=== PATIENT | female | born 1950 ===

== ENCOUNTER 2021-12-04 22:38 | Inpatient (IN) | payer OTHER ==
--- OUTSIDE RECORDS SUMMARY | 2021-12-04 22:40 | XMS REPORT | Continuity of Care Document ---
:1950 Author Organization [facility] t Address Formerly [facility] Vaibhav Nunn [address] [place] [id number] Care Team Providers Name Role Phone SOLIPURAM Attending Clinician Unavailable Miller_S_AH Attending Clinician Unavailable Margaret-Mbayo_A_AH Attending Clinician Unavailable SOLIPURAM Admitting Clinician Unavailable Miller_S_AH Admitting Clinician Unavailable Margaret-Mbayo_A_AH Admitting Clinician Unavailable Payers Payer Name Policy Type Policy Number Effective Date Expiration Date [facility] [place] [id number] 2019 [facility] 00:00:00 (MEDICARE REPLACEMENT/ADVANT AGE - HMO) Problems This patient has no known problems. Allergies, Adverse Reactions, Alerts This patient has no known allergies or adverse reactions. Medications This patient has no known medications. Procedures This patient has no known procedures. Encounters Start End Encounter Admission Attending Care Care Encounter Source Date/Time Date/Time Type Type Clinicians Facility Department ID 2021-05-23 2021-05-24 Outpatient [facility] [id number] [place] 00:00:00 00:00:00 [facility] [id number] 2021-05-04 2021-05-04 Outpatient Miller_S_AH [facility] [id number] [facility] 06:00:00 06:00:00 [id number] Family Practic [facility] 2020-05-04 2020-05-04 Outpatient Margaret-Mbayo VFP VFP [id number] [facility] 03:15:00 03:15:00 _A_AH [id number] Family Practic e 2020-05-04 2020-05-04 Outpatient Margaret-Mbayo VFP VFP [id number] [facility] 03:15:00 03:15:00 _A_AH [id number] Family Practic e 2020-05-04 2020-05-04 Outpatient Margaret-Mbayo VFP VFP [id number] [facility] 03:15:00 03:15:00 _A_AH [id number] Family Practic e 2020-03-01 2020-03-01 Outpatient Margaret-Mbayo VFP VFP [id number] [facility] 05:14:00 05:14:00 _A_AH [id number] Family Practic e 2020-03-01 2020-03-01 Outpatient Margaret-Mbayo VFP VFP [id number] [facility] 05:14:00 05:14:00 _A_AH [id number] Family Practic e 2020-03-01 2020-03-01 Outpatient Margaret-Mbayo VFP VFP [id number] [facility] 05:14:00 05:14:00 _A_AH [id number] Family Practic e Results This patient has no known results.
[2021-12-05] MEDS ORDERED: CEFTRIAXONE 1000 MG/VIAL ONE ×2 (00:27→09:56)
[2021-12-05] MEDS ORDERED: AZITHROMYCIN 500 MG INJ IVPB ONE (00:27)
[2021-12-05] MEDS ORDERED: NA CHLORIDE 0.9% 250 ML ONE (00:28)
[2021-12-05] MEDS ORDERED: NA CHLORIDE 0.9% 1,000 ML ONE ×2 (00:28→12:29)
[2021-12-05] MEDS ORDERED: NA CHLORIDE 0.9% 50 ML ONE (00:28)
[2021-12-05 01:11] LABS: ALT/SGPT 13 U/L (12-78); AST/SGOT 21 U/L (15-37); Albumin 2.4 g/dL (3.4-5.0); Alkaline Phosphatase 97 U/L (45-117); BUN Blood Urea Nitrogen 23 mg/dL (7-18); Bicarbonate 26 mmol/L (21-32); Bilirubin Direct 0.3 mg/dL (0-0.2); Bilirubin Total 0.7 mg/dL (0.2-1.0); Glucose Level 139 mg/dL (74-106); Lipase 73 U/L (73-393); Potassium 3.2 mmol/L (3.5-5.1); Protein, Total 7.7 g/dL (6.4-8.2); Sodium Level 136 mmol/L (136-145); Troponin (Emerg Dept Use Only) < 0.02 ng/mL (0.0-0.045)
[2021-12-05 01:16] LABS: Urine Blood 1+ (Negative); Urine Glucose Negative (Negative); Urine Protein 2+ (Negative); Urine pH 5.5 (5.0-7.0)
[2021-12-05 01:21] LABS: Absolute Lymphocytes (CBC) 0.3 K/uL (0.7-4.9); Lymphocytes % 5.1 % (15.3-44.8); MPV 7.8 fL (7.6-11.3)
[2021-12-05 01:36] LABS: Protime INR 1.49
[2021-12-05 01:42] LABS: Urine Bacteria LOADED /HPF (<20)
[2021-12-05 01:44] LABS: Urine RBC <5 /HPF (NONE SEEN); Urine Urothelial Cells <5 /HPF (NONE SEEN)
[2021-12-05 01:44] LABS: Arterial Blood Carboxyhemoglob 1.5 % (0-1.5); Blood Gas Oxyhemoglobin 97.1 % (94-97); Blood O2 Saturation 99.3 % (92-98.5)
[2021-12-05 02:03] LABS: Blood Morphology Comment NOT SEEN (NOT SEEN); Platelet Estimate ADEQ
--- NOTE | 2021-12-05 02:22 | EDPHYS ---
Physician Documentation [facility] Name: Bernadette Mott Age: 70 yrs Sex: Female : 1950 Arrival Date: 12/04/2021 Time: 22:42 Bed 2 Private MD: ED Physician Sam Elizabeth HPI: 12/05 00:53 This 70 yrs old Female presents to ER via Wheelchair with complaints of Shortness of jr8 breath. 00:53 Onset: The symptoms/episode began/occurred gradually, 1 week(s) ago. Severity of jr8 symptoms: At their worst the symptoms were moderate, in the emergency department the symptoms are unchanged. Modifying factors: The symptoms are alleviated by nothing. Associated signs and symptoms: Pertinent positives: vomiting, cough. The patient has not experienced similar symptoms in the past. The patient has not recently seen a physician. Historical: - Allergies: 00:01 Codeine; tw5 00:01 Morphine; tw5 00:01 tramadol; tw5 00:01 PENICILLINS; tw5 - PMHx: 00:02 Hypertensive disorder; Chronic obstructive lung disease; one functioning kidney; tw - Immunization history:: Client reports receiving the 2nd dose of the Covid vaccine, moderna. - Social history:: Smoking status: Patient reports the use of cigarette tobacco products, smokes one-half pack cigarettes per day. ROS: 00:53 Eyes: Negative for injury, pain, redness, and discharge, ENT: Negative for injury, jr8 pain, and discharge, Neck: Negative for injury, pain, and swelling, Cardiovascular: Negative for chest pain, palpitations, and edema, Back: Negative for injury and pain, MS/Extremity: Negative for injury and deformity, Skin: Negative for injury, rash, and discoloration, Neuro: Negative for headache, weakness, numbness, tingling, and seizure. 00:53 Respiratory: Positive for cough, dyspnea on exertion, shortness of breath. 00:53 Abdomen/GI: Positive for nausea and vomiting, Negative for abdominal pain, diarrhea. Exam: 00:53 Eyes: Pupils equal round and reactive to light, extra-ocular motions intact. Lids and jr8 lashes normal. Conjunctiva and sclera are non-icteric and not injected. Cornea within normal limits. Periorbital areas with no swelling, redness, or edema. ENT: Nares patent. No nasal discharge, no septal abnormalities noted. Tympanic membranes are normal and external auditory canals are clear. Oropharynx with no redness, swelling, or masses, exudates, or evidence of obstruction, uvula midline. Mucous membranes moist. Neck: Trachea midline, no thyromegaly or masses palpated, and no cervical lymphadenopathy. Supple, full range of motion without nuchal rigidity, or vertebral point tenderness. No Meningismus. 00:53 Abdomen/GI: Soft, non-tender, with normal bowel sounds. No distension or tympany. No guarding or rebound. No evidence of tenderness throughout. Skin: Warm, dry with normal turgor. Normal color with no rashes, no lesions, and no evidence of cellulitis. MS/ Extremity: Pulses equal, no cyanosis. Neurovascular intact. Full, normal range of motion. Neuro: Awake and alert, GCS 15, oriented to person, place, time, and situation. Cranial nerves II-XII grossly intact. Motor strength 5/5 in all extremities. Sensory grossly intact. 00:53 Constitutional: The patient appears alert, awake, obviously ill. 00:53 Cardiovascular: Rate: tachycardic, Pulses: Pulses are 2+ in right radial artery and left radial artery. Heart sounds: normal, normal S1and S2, no S3 or S4, no murmur, no rub, no gallop, Edema: is not appreciated. 00:53 Respiratory: mild respiratory distress is noted, Respirations: tachypnea, that is moderate, Breath sounds: decreased breath sounds, that are mild, are heard in the right posterior upper lobe and right posterior middle lobe. Vital Signs: 12/04 23:37 BP 109 / 71; Pulse 124; Resp 20; Temp 99.9(TE); Pulse Ox 77% on R/A; Weight 72.57 kg as6 (R); Height 5 ft. 6 in. (167.64 cm) (R); 12/05 00:02 BP 136 / 93; Pulse 119; Resp 33; Temp 98.5; tw5 01:00 BP 136 / 93; Pulse 111; Resp 29; Pulse Ox 94% on CPAP; tw5 01:16 BP 126 / 80; Pulse 105; Resp 35; Pulse Ox 94% on CPAP; tw5 04:50 BP 123 / 82; Pulse 84; Resp 18; Pulse Ox 97% on 4 lpm NC; tw5 05:49 BP 150 / 87; Pulse 76; Resp 18; Pulse Ox 92% on 6 lpm NC; tw5 12/04 23:37 Body Mass Index 25.82 (72.57 kg, 167.64 cm) as6 MDM: 12/04 23:54 Patient medically screened. [facility] 12/05 02:19 Data reviewed: vital signs, nurses notes, lab test result(s), EKG, radiologic studies, [facility] CT scan, plain films. Data interpreted: Pulse oximetry: on room air is 77 %. Interpretation: hypoxia. Counseling: I had a detailed discussion with the patient and/or guardian regarding: the historical points, exam findings, and any diagnostic results supporting the discharge/admit diagnosis, lab results, radiology results, the need for further work-up and treatment in the hospital. 12/04 23:55 Order name: BMP [facility] 12/04 23:55 Order name: Blood Culture Adult (2) [facility] 12/04 23:55 Order name: C-Reactive Protein [facility] 12/04 23:55 Order name: CBC with Diff [facility] 12/04 23:55 Order name: D-Dimer [facility] 12/04 23:55 Order name: Ferritin [facility] 12/04 23:55 Order name: LFT's; Complete Time: 03:15 [facility] 12/04 23:55 Order name: Lactate; Complete Time: 00:55 [facility] 12/04 23:55 Order name: Lipase; Complete Time: 03:15 [facility] 12/04 23:55 Order name: PT-INR; Complete Time: 01:37 [facility] 12/04 23:55 Order name: Procalcitonin; Complete Time: 01:34 [facility] 12/04 23:55 Order name: Ptt, Activated; Complete Time: 01:37 [facility] 12/04 23:55 Order name: Troponin (emerg Dept Use Only); Complete Time: 03:15 [facility] 12/04 23:55 Order name: Urine Microscopic Only; Complete Time: 02:07 [facility] 12/04 23:55 Order name: ABG; Complete Time: 02:07 [facility] 12/04 23:58 Order name: Basic Metabolic Panel; Complete Time: 03:15 EDNM 12/04 23:58 Order name: Blood Culture [facility] 12/04 23:58 Order name: C-Reactive Protein; Complete Time: 03:15 EDMS 12/04 23:58 Order name: CBC with Automated Diff; Complete Time: 02:07 EDMS 12/04 23:58 Order name: D-Dimer; Complete Time: 01:37 EDMS 12/04 23:58 Order name: Ferritin; Complete Time: 03:15 EDMS 12/05 00:27 Order name: COVID-19/FLU A+B; Complete Time: 02:50 EDMS 12/05 01:15 Order name: Urine Dipstick-Ancillary; Complete Time: 01:16 EDMS 12/05 01:22 Order name: Manual Differential; Complete Time: 02:07 EDMS 12/05 01:46 Order name: Urine Culture EDMS 12/05 04:07 Order name: Comprehensive Metabolic Panel EDMS 12/05 04:07 Order name: Comprehensive Metabolic Panel EDMS 12/05 04:07 Order name: CBC with Automated Diff EDMS 12/04 23:55 Order name: CXR XRAY jr8 12/04 23:55 Order name: EKG; Complete Time: 23:59 jr8 12/04 23:55 Order name: Cardiac monitoring; Complete Time: 01:14 jr8 12/04 23:55 Order name: Droplet/Contact Precautions; Complete Time: 01:14 jr8 12/04 23:55 Order name: EKG - Nurse/Tech; Complete Time: 01:14 jr8 12/04 23:55 Order name: Paige; Complete Time: 01:14 jr8 12/04 23:55 Order name: IV Start; Complete Time: 01:14 8 12/04 23:55 Order name: Labs collected and sent; Complete Time: 01:14 jr8 12/04 23:55 Order name: O2 Per Protocol; Complete Time: 01:14 jr8 12/04 23:55 Order name: O2 Sat Monitoring; Complete Time: 01:14 jr8 12/04 23:55 Order name: Urine Dipstick-Ancillary (obtain specimen); Complete Time: :14 jr8 12/04 23:55 Order name: BIPAP jr8 12/05 00:47 Order name: Labs - recollect needed: blue and purple; Complete Time: 01:01 mw2 12/05 01:37 Order name: CT Chest For PE Angio jr8 12/05 04:06 Order name: CONS Physician Consult EDMS 12/05 04:07 Order name: Heart Healthy EDMS 12/05 04:07 Order name: CBC with Automated Diff EDMS 12/05 04:45 Order name: Lactate Sepsis 2 HR Follow-up EDMS Administered Medications: 01:01 Drug: Rocephin (cefTRIAXone) 1 grams Route: IV; Rate: calculated rate; Site: right tw5 antecubital; 01:13 Follow up: Response: No adverse reaction; IV Status: Completed infusion tw5 01:13 Drug: NS 0.9% 1000 ml Route: IV; Rate: 1000 ml; Site: right antecubital; tw5 04:53 Follow up: Response: No adverse reaction; IV Status: Completed infusion tw5 01:13 Drug: Zithromax (azithromycin) 500 mg Route: IVPB; Infused Over: 1 hrs; Site: right tw5 antecubital; 02:55 Follow up: Response: No adverse reaction; IV Status: Completed infusion tw5 03:50 Drug: SOLU-Medrol (methylPrednisoLONE) 125 mg Route: IVP; Site: right antecubital; tw5 04:52 Follow up: Response: No adverse reaction tw5 03:54 Drug: Potassium Chloride 20 mEq Route: IV; Rate: calculated rate; Site: right tw5 antecubital; 04:53 Follow up: Response: No adverse reaction; IV Status: Completed infusion tw 04:53 Follow up: IV Status: Infusion continued upon admission tw5 03:57 Drug: Lovenox (enoxaparin) 1 mg/kg Route: Sub-Q; Site: left lower abdomen; tw5 04:53 Follow up: Response: No adverse reaction tw5 05:49 Drug: Tylenol 1000 mg Route: PO; Disposition: 05:52 Co-signature as Attending Physician, Sam Elizabeth MD. pkl Disposition Summary: 12/05/21 02:21 Hospitalization Ordered Hospitalization Status: Inpatient Admission jr8 Provider: Dillan Osei Condition: Fair jr8 Problem: new jr8 Symptoms: have improved jr8 Bed/Room Type: Standard jr8 Location: Telemetry/MedSurg (Inpatient)(12/05/21 12:16) dw Room Assignment: 410(12/05/21 12:16) dw Diagnosis - Pneumonia due to SARS-associated coronavirus jr8 - Acute respiratory failure with hypoxia jr8 - UTI/ Urinary tract infection, site not specified jr8 Forms: - Medication Reconciliation Form jr8 - SBAR form jr8 Signatures: Dispatcher [employer] EDMS Rocío Temple RN RN Tiffanie Woods RN RN Sam Maxwell MD MD pkBrandon Babin PA PA jr8 Viktoriya Patel mw2 Nae Clemente Corrections: (The following items were deleted from the chart) 00:04 00:01 PMHx: Hyperlipidemia; 00:04 00:01 PMHx: Hypertension; 00:04 00:01 PMHx: COPD; 00:04 00:01 PMHx: Myocardial infarction; 00:27 12/04 23:58 Influenza Screen (A \T\ B)+BA.LAB.BRZ ordered. EDNM EDNM 12/05 00:27 12/04 23:59 SARS-COV-2 RT PCR+MOL.LAB.BRZ ordered. EDNM EDNM 12/05 02:22 02:21 Severe sepsis without septic shock jr8 jr8 03:13 02:21 Telemetry/MedSurg (Inpatient) jr8 mw 03:13 02:21 jr8 mw 12:16 03:13 BR ER HOLD mw dw 12:16 03:13 ERHOLD- dw
--- NOTE | 2021-12-05 02:22 | ER ---
Nurse's Notes [facility] Name: Bernadette Mott Age: 70 yrs Sex: Female : 1950 Arrival Date: 12/04/2021 Time: 22:42 Bed 2 Private MD: Diagnosis: Pneumonia due to SARS-associated coronavirus;Acute respiratory failure with hypoxia;UTI/ Urinary tract infection, site not specified Presentation: 12/04 23:37 Chief complaint: Patient's son or daughter states: cough, vomiting, weakness, headache, as6 not eating, body aches. Coronavirus screen: Vaccine status: Patient reports receiving the 2nd dose of the covid vaccine. Client presents with at least one sign or symptom that may indicate coronavirus-19. Standard/surgical mask placed on the client. Ebola Screen: No symptoms or risks identified at this time. Initial Sepsis Screen: Does the patient meet any 2 criteria? Altered Mental Status. HR > 90 bpm. Yes Does the patient have a suspected source of infection? No. Patient's initial sepsis screen is negative. Risk Assessment: Do you want to hurt yourself or someone else? Patient reports no desire to harm self or others. Onset of symptoms was November 25, 2021. 23:37 Method Of Arrival: Wheelchair as6 23:37 Acuity: JOSE JUAN 2 as6 Historical: - Allergies: 12/05 00:01 Codeine; tw5 00:01 Morphine; tw5 00:01 tramadol; tw5 00:01 PENICILLINS; tw5 - PMHx: 00:02 Hypertensive disorder; Chronic obstructive lung disease; one functioning kidney; tw5 - Immunization history:: Client reports receiving the 2nd dose of the Covid vaccine, moderna. - Social history:: Smoking status: Patient reports the use of cigarette tobacco products, smokes one-half pack cigarettes per day. Screenin:02 Abuse screen: Denies threats or abuse. Denies injuries from another. Nutritional tw5 screening: No deficits noted. Tuberculosis screening: No symptoms or risk factors identified. Fall Risk Fall in past 12 months (25 points). Secondary diagnosis (15 points) IV access (20 points). Assessment: 12/04 23:54 Pain: Complains of pain in back. Neuro: Level of Consciousness is obeys commands, tw5 lethargic. Respiratory: Reports shortness of breath Airway is patent Trachea midline Respiratory effort is labored, Respiratory pattern is tachypnea Breath sounds are coarse bilaterally. GI: Abdomen is non-distended. 12/05 00:00 General: Appears distressed, Behavior is cooperative, appropriate for age. tw5 Cardiovascular: Rhythm is sinus tachycardia. 00:06 Respiratory: Patient placed on BiPAP: Inspiratory Pressure: 13 Expiratory (EPAP) tw5 Pressure: 5 FiO2%: 50 Respiratory Rate: 32. 01:00 : Urine is cloudy. tw5 04:07 General: Nora- [phone]. tw5 04:50 Reassessment: Patient states feeling better. Patient states symptoms have improved. tw5 General: Appears in no apparent distress. comfortable, Behavior is calm, cooperative, appropriate for age. 05:49 General: repositioned patient for comfort. Extra warm blankets provided.. tw5 Vital Signs: 12/04 23:37 BP 109 / 71; Pulse 124; Resp 20; Temp 99.9(TE); Pulse Ox 77% on R/A; Weight 72.57 kg as6 (R); Height 5 ft. 6 in. (167.64 cm) (R); 12/05 00:02 BP 136 / 93; Pulse 119; Resp 33; Temp 98.5; tw5 01:00 BP 136 / 93; Pulse 111; Resp 29; Pulse Ox 94% on CPAP; tw5 01:16 BP 126 / 80; Pulse 105; Resp 35; Pulse Ox 94% on CPAP; tw5 04:50 BP 123 / 82; Pulse 84; Resp 18; Pulse Ox 97% on 4 lpm NC; tw5 05:49 BP 150 / 87; Pulse 76; Resp 18; Pulse Ox 92% on 6 lpm NC; tw5 12/04 23:37 Body Mass Index 25.82 (72.57 kg, 167.64 cm) as6 ED Course: 12/04 22:42 Patient arrived in ED. ag3 23:51 Triage completed. as6 23:53 Nae Clemente is Primary Nurse. tw5 23:53 Initial lab(s) drawn, by ED staff, sent to lab. Inserted saline lock: 18 gauge in right tw5 antecubital area, using aseptic technique. Blood collected. Oxygen administration via non-rebreather mask \T\ 15L/min O2 via rt paged. 23:54 Roszak, Brandon, PA is PHCP. jr8 23:54 Sam Elizabeth MD is Attending Physician. jr8 23:54 EKG done, by ED staff. tw5 12/05 00:02 Patient has correct armband on for positive identification. Placed in gown. Bed in low tw5 position. Side rails up X2. Adult w/ patient. casting supervisor on. Pulse ox on. NIBP on. Door closed. Noise minimized. Lights dimmed. Moved to private room. Warm blanket given. Verbal reassurance given. 00:25 CXR XRAY In Process Unspecified. EDMS 01:00 Urine collected: straight cath specimen, cloudy, Amount Returned: 100mL COVID swab sent tw to lab. 01:13 COVID-19/FLU A+B Sent. tw 01:13 CBC with Automated Diff Sent. tw 01:13 Blood Culture Sent. tw 01:13 ABG Sent. tw 01:14 BMP Sent. tw 01:14 Blood Culture Adult (2) Sent. tw 01:14 D-Dimer Sent. tw5 01:14 CBC with Diff Sent. tw5 01:14 C-Reactive Protein Sent. tw5 01:14 Ferritin Sent. tw5 01:14 Procalcitonin Sent. tw5 01:14 Urine Microscopic Only Sent. tw5 01:32 Ferritin Sent. lp1 01:32 D-Dimer Sent. lp1 01:32 CBC with Automated Diff Sent. lp1 02:21 Dillan Osei MD is Hospitalizing Provider. jr8 02:55 Urine Culture Sent. tw5 03:18 CT Chest For PE Angio In Process Unspecified. EDMS 04:54 No provider procedures requiring assistance completed. tw5 07:22 Michael Lehman, SOPHIE is Primary Nurse. bp Administered Medications: 01:01 Drug: Rocephin (cefTRIAXone) 1 grams Route: IV; Rate: calculated rate; Site: right tw5 antecubital; :13 Follow up: Response: No adverse reaction; IV Status: Completed infusion 01:13 Drug: NS 0.9% 1000 ml Route: IV; Rate: 1000 ml; Site: right antecubital; tw5 04:53 Follow up: Response: No adverse reaction; IV Status: Completed infusion 01:13 Drug: Zithromax (azithromycin) 500 mg Route: IVPB; Infused Over: 1 hrs; Site: right tw5 antecubital; 02:55 Follow up: Response: No adverse reaction; IV Status: Completed infusion 03:50 Drug: SOLU-Medrol (methylPrednisoLONE) 125 mg Route: IVP; Site: right antecubital; tw 04:52 Follow up: Response: No adverse reaction 03:54 Drug: Potassium Chloride 20 mEq Route: IV; Rate: calculated rate; Site: right tw5 antecubital; 04:53 Follow up: Response: No adverse reaction; IV Status: Completed infusion 04:53 Follow up: IV Status: Infusion continued upon admission tw 03:57 Drug: Lovenox (enoxaparin) 1 mg/kg Route: Sub-Q; Site: left lower abdomen; tw 04:53 Follow up: Response: No adverse reaction 05:49 Drug: Tylenol 1000 mg Route: PO; Outcome: 02:21 Decision to Hospitalize by Provider. jr8 13:17 Admitted to Tele accompanied by nurse, via stretcher, with oxygen, Report called to hayde webb 13:17 Condition: stable 13:17 Instructed on safety practices. 13:42 Patient left the ED. ll1 Signatures: Dispatcher [employer] EDMS Melisa Camp RN RN lp1 Brandon Rossi PA PA jr8 Michael Lehman RN Mireya Bullock ag3 Jayy Rose RN RN ll1 Nae Clemente tw Blu Mcguire RN RN as6 Shahnaz Miranda RN RN [facility] Corrections: (The following items were deleted from the chart) 00:04 00:01 PMHx: Hyperlipidemia; 00:04 00:01 PMHx: Hypertension; 00:04 00:01 PMHx: COPD; 00:04 00:01 PMHx: Myocardial infarction;
[2021-12-05 02:46] LABS: SARS-COV-2 RT PCR POSITIVE (NEGATIVE)
--- NOTE | 2021-12-05 03:15 | P.HP ---
Certification for Inpatient Patient admitted to: Inpatient With expected LOS: >2 Midnights Patient will require the following post-hospital care: None Practitioner: I am a practitioner with admitting privileges, knowledge of patient current condition, hospital course, and medical plan of care. Services: Services provided to patient in accordance with Admission requirements found in Title 42 Section 412.3 of the Code of Federal Regulations Patient History Date of Service: 12/05/21 Reason for admission: Shortness of breath History of Present Illness: 70-year-old female with past medical history of hypertension, COPD, single kidney with CKD follows with Dr. Gutierrez admitted because of progressive shortness of breath since the last 2 weeks. Patient admits to receiving the Covid vaccine. On admission she was noted with O2 sats in the 70s on room air. She was initially placed on BiPAP. D-dimer was elevated as well as procalcitonin and CRP. Her Covid test was positive. Chest x-ray shows alveolar infiltrate consistent with Covid pneumonia. Her O2 sat improved with BiPAP and was weaned off to nasal cannula now. Patient was reportedly initially lethargic but more responsive now. She admits to tobacco use but states she quit 2 weeks ago. She denies any chest pain or palpitation. She has been admitted for Covid pneumonia with acute respiratory failure Allergies codeine Allergy (Severe, Verified 07/31/19 00:52) Anaphylaxis morphine Allergy (Severe, Verified 07/31/19 00:52) Anaphylaxis Home Medications: Clopidogrel Bisulfate [Plavix*] 75 mg PO DAILY #30 tablet 01/16/16 Nitroglycerin [Nitrostat*] 1 tab PO PRN PRN #100 tab 01/16/16 clonazePAM [Clonazepam] 2 mg PO DAILY PRN #60 tablet 01/16/16 Citalopram [Celexa*] 40 mg PO DAILY #30 tablet 07/31/19 Gabapentin [Neurontin*] 300 mg PO TID PRN 07/31/19 Lovastatin 40 mg PO DAILY 30 Days #30 tablet 07/31/19 Metoprolol Succinate 50 mg PO DAILY 07/31/19 Telmisartan 80 mg PO BEDTIME 07/31/19 - Past Medical/Surgical History Diabetic: No -: HTN -: Heart stent -: Nerve damage repair L arm -: anxiety -: [place] -: -: Hysterectomy -: Ankle sx -: Appendectomy -: Ctarct Surgery - Family History Mother -: Cancer Notes: Rectal Father -: Heart disease, Cancer Notes: Lung Ca Brother -: Diabetes - Social History Smoking Status: Current every day smoker Counseled patient to stop smoking for: less than 10 minutes Smoking therapy provided: Yes Alcohol use: Yes CD- Drugs: No Caffeine use: Yes Review of Systems 10-point ROS is otherwise unremarkable Physical Examination - Physical Exam General: Alert, In no apparent distress, Cooperative, Obese HEENT: Atraumatic, Normocephalic, PERRLA Neck: Supple, 2+ carotid pulse no bruit, JVD not distended Respiratory: Clear to auscultation bilaterally, Normal air movement Cardiovascular: No edema, Regular rate/rhythm, Normal S1 S2 Gastrointestinal: Normal bowel sounds, Soft and benign, Non-distended Musculoskeletal: No clubbing, No swelling, No erythema Neurological: Normal gait, Normal speech, Normal strength at 5/5 x4 extr External genitalia: No edema, No lesions - Studies Laboratory Data (last 24 hrs) 12/05/21 01:02: WBC 6.70, Hgb 11.4 L, Hct 34.0 L, Plt Count 221 12/05/21 00:14: PT 17.2 H, INR 1.49, APTT 29.7 12/05/21 00:14: Sodium 136, Potassium 3.2 L, BUN 23 H, Creatinine 1.20, Glucose 139 H, Total Bilirubin 0.7, AST 21, ALT 13, Alkaline Phosphatase 97, Lipase 73 Assessment and Plan - Problems (Diagnosis) (1) COVID-19 virus RNA test result positive at limit of detection Current Visit: Yes Status: Acute (2) Acute respiratory failure due to COVID-19 Current Visit: Yes Status: Acute (3) Acute respiratory failure with hypoxia Current Visit: Yes Status: Acute - Plan Acute respiratory failure with hypoxia History of COPD Chronic tobacco use COVID-19 positive test (U07.1, COVID-19) with Acute Pneumonia (J12.89, Other viral pneumonia) (If respiratory failure or sepsis present, add as separate assessment) Hypertension Plan We will admit patient to inpatient status Continue O2 as tolerated, keep sat above 93 We will start heparin code Decadron/zinc sulfate We will consult pulmonary might benefit from monoclonal antibodies We will replace potassium Avoid IV fluid for now given possibility of worsening Covid We will start Lovenox subacute Obtain CT given elevated D-dimer to rule out PE DVT prophylaxis with Lovenox GI prophylaxis with PPI Advance directive discussed with patient she wishes full code for now Family at bedside also discussed with Disposition possible hospital stay for more than 48 hours Discharge Plan: Home - Advance Directives Does patient have a Living Will: No Does patient have a Durable POA for Healthcare: No - Code Status/Comfort Care Code Status: Full Code
[2021-12-05] MEDS ORDERED: KCL 20 MEQ/100 mL IVPB 100 ML IV ONE (03:40)
[2021-12-05] MEDS ORDERED: ENOXAPARIN 80 MG/0.8 ML SQ ONE (03:40)
[2021-12-05] MEDS ORDERED: METHYLPREDNISOLONE 125 MG INJ ONE (03:43)
[2021-12-05] MEDS ORDERED: ONDANSETRON 4 MG/2 ML VIAL IV PRN (04:03)
[2021-12-05] MEDS ORDERED: ALBUTEROL 2.5 MG/3 ML NEB SOL NEB PRN (04:03)
[2021-12-05] MEDS ORDERED: LORAZEPAM 0.5 MG TABLET PO PRN (04:04)
[2021-12-05] MEDS ORDERED: POTASSIUM 25 MEQ EFFERV TAB PO ONE (04:06)
[2021-12-05] MEDS ORDERED: ACETAMINOPHEN 500 MG TAB ONE (05:43)
--- NOTE | 2021-12-05 06:15 | P.PN ---
Subjective Date of Service: 12/05/21 Primary Care Provider: Dr. Calvin Chief Complaint: Shortness of breath Subjective: Other (Some improvement. Currently on nasal cannula.) Physical Examination - Studies Laboratory Data (last 24 hrs) 12/05/21 01:02: WBC 6.70, Hgb 11.4 L, Hct 34.0 L, Plt Count 221 12/05/21 00:14: PT 17.2 H, INR 1.49, APTT 29.7 12/05/21 00:14: Sodium 136, Potassium 3.2 L, BUN 23 H, Creatinine 1.20, Glucose 139 H, Total Bilirubin 0.7, AST 21, ALT 13, Alkaline Phosphatase 97, Lipase 73 Assessment & Plan Discharge Plan: Home Plan to discharge in: Greater than 2 days Physician Review Additional Text: COVID: Positive Hx of Moderna vaccine in the past times 2 Initial CXR: COMPARISON: 2019 FINDINGS: Moderate bilateral pulmonary opacities. Heart is mildly to moderately enlarged. IMPRESSION: Moderate bilateral pulmonary opacities probably pneumonia CT chest: COMPARISON: None TECHNIQUE: Multiple transaxial tomograms of the chest were obtained from the lung apices through the lung bases utilizing 2 mm slice thickness at 2 mm interval reconstruction after the administration of large bolus of IV contrast for complete opacification of the pulmonary arteries. Subsequent 3-D maximum intensity projection images were generated in the coronal and sagittal plane for review. This exam was performed according to our departmental dose-optimization protocol, which includes automated exposure control, adjustment of the mA and/or kV according to patient size and/or use of iterative reconstruction technique. FINDINGS: The lungs parenchyma demonstrate interlobular septal thickening with a subpleural sparing minimal dependent atelectatic changes. Findings suggest most likely nonspecific interstitial pneumonitis and/or interstitial lung disease such as UIP could be of consideration. Calcified granuloma posterior segment right lower lobe. No masses, nodules and/or consolidations are identified. The trachea mainstem bronchus demonstrate to be normal. There is no significant pericardial or pleural effusions. The thoracic aorta demonstrate intimal calcification at the aortic throughout the thoracic aorta. The heart is normal in size. No evidence for right ventricular strain. There are minimal coronary artery calcifications There is no significant mediastinal and/or hilar lymphadenopathy. The axillary regions demonstrate to be clear. Pulmonary arteries demonstrate to be normal, no intraluminal defect are seen that would suggest pulmonary embolus. The bone windows demonstrate no significant skeletal lesions. The visualized portions of the upper abdomen demonstrate to be unremarkable. IMPRESSION: No evidence for pulmonary embolism. Diffuse interlobular septal thickening with a subpleural sparing minimal dependent atelectatic changes. Findings suggest most likely nonspecific interstitial pneumonitis and/or interstitial lung disease such as UIP could be of consideration. Atherosclerotic disease thoracic aorta. Physical exam: General: Alert, In no apparent distress, Cooperative, Obese HEENT: Atraumatic, Normocephalic, PERRLA Neck: Supple, 2+ carotid pulse no bruit, JVD not distended Respiratory: Currently on 6 L per nasal cannula Cardiovascular: No edema, Regular rate/rhythm, Normal S1 S2 Gastrointestinal: Normal bowel sounds, Soft and benign, Non-distended Musculoskeletal: No clubbing, No swelling, No erythema Neurological: Normal gait, Normal speech, Normal strength at 5/5 x4 extr External genitalia: No edema, No lesions Impression: Acute respiratory failure secondary to COVID pneumonia Tobacco abuse HTN UTI Chronic renal disease stage III Plan: Acute respiratory failure secondary to COVID pneumonia complicated with COPD: Continue IV Solu-Medrol. Patient on 6 L per nasal cannula. Continue to wean off to maintain sats above 93%. Patient with underlying COPD. Will provide COPD medicationBrovana, albuterol, Atrovent. Will monitor CRP and ferritin. Pulmonology consulted. Await recommendations. Encourage proning and lying on her side. Patient also being treated for UTI. Anticipate continued improvement over the next several days. Tobacco abuse: We will provide nicotine patch. Provide education on cessation. HTN: Obtain verify home medication. IV medication provided UTI: Cultures obtained. Continue Rocephin IV. Chronic renal disease stage III: We will continue to monitor closely. Encourage oral intake. Nephrology consulted. CODE STATUS: Full code DVT prophylaxis: Lovenox Advance care [email or web address] minutes: Home at discharge Time Spent Managing Pts Care (In Minutes): 55
--- NOTE | 2021-12-05 08:50 | RAD REPORT ---
EXAM DESCRIPTION: Fernando Single View12/05/2021 8:33 am CLINICAL HISTORY: Chest pain COMPARISON: 2019 FINDINGS: Moderate bilateral pulmonary opacities. Heart is mildly to moderately enlarged. IMPRESSION: Moderate bilateral pulmonary opacities probably pneumonia
[2021-12-05] MEDS: CEFTRIAXONE 1,000 MG in NA CHLORIDE 0.9% 50 ML IVPB SCH (09:00)
[2021-12-05] MEDS: NICOTINE 21 MG/PAT TD SCH (09:00)
[2021-12-05] MEDS: ENOXAPARIN 40 MG/0.4 ML SQ SCH (09:00)
[2021-12-05] MEDS: METHYLPREDNISOLONE 40 MG INJ IV SCH ×2 (09:00→17:32)
[2021-12-05] MEDS: ZINC SULFATE 220 MG CAP PO SCH (09:00)
[2021-12-05] MEDS: FAMOTIDINE 20 MG TAB PO SCH ×2 (09:00→20:23)
[2021-12-05] MEDS ORDERED: dexAMETHasone 4 MG TAB PO SCH (09:00)
[2021-12-05] MEDS ORDERED: ARFORMOTEROL TARTRATE 15 MCG/2 ML VIAL.NEB ONE (09:20)
[2021-12-05] MEDS ORDERED: ZINC SULFATE 220 MG CAP ONE (09:55)
[2021-12-05] MEDS ORDERED: NICOTINE 21 MG/PAT TD ONE (09:55)
[2021-12-05] MEDS ORDERED: METHYLPREDNISOLONE 40 MG INJ ONE (09:56)
[2021-12-05] MEDS ORDERED: IPRATROPIUM BROM 0.5MG/2.5ML ONE (09:56)
[2021-12-05] MEDS ORDERED: NA CHLORIDE 0.9% 100 ML ONE (09:56)
[2021-12-05] MEDS ORDERED: FAMOTIDINE 20 MG/2 ML VIAL IV ONE (09:57)
[2021-12-05] MEDS ORDERED: ENOXAPARIN 40 MG/0.4 ML SQ ONE (09:57)
[2021-12-05] MEDS: ARFORMOTEROL TARTRATE 15 MCG/2 ML VIAL.NEB NEB SCH ×2 (10:39→20:00)
--- NOTE | 2021-12-05 10:44 | RAD REPORT ---
EXAM DESCRIPTION: CT - Chest For Pe Angio - 12/05/2021 6:20 am CLINICAL HISTORY: 70 years, Female, DYSPNEA COMPARISON: None TECHNIQUE: Multiple transaxial tomograms of the chest were obtained from the lung apices through the lung bases utilizing 2 mm slice thickness at 2 mm interval reconstruction after the administration o f large bolus of IV contrast for complete opacification of the pulmonary arteries. Subsequent 3-D maximum intensity projection images were generated in the coronal and sagittal plane f or review. This exam was performed according to our departmental dose-optimization protocol, which includes auto mated exposure control, adjustment of the mA and/or kV according to patient size and/or use of iterat dimas reconstruction technique. FINDINGS: The lungs parenchyma demonstrate interlobular septal thickening with a subpleural sparing minimal dependent atelectatic changes. Findings suggest most likely nonspecific interstitial pneumoni tis and/or interstitial lung disease such as UIP could be of consideration. Calcified granuloma poste rior segment right lower lobe. No masses, nodules and/or consolidations are identified. The trachea mainstem bronchus demonstrate to be normal. There is no significant pericardial or pleura l effusions. The thoracic aorta demonstrate intimal calcification at the aortic throughout the thoracic aorta. The heart is normal in size. No evidence for right ventricular strain. There are minimal coronary artery calcifications There is no significant mediastinal and/or hilar lymphadenopathy. The axillary regions demonstrate to be clear. Pulmonary arteries demonstrate to be normal, no intraluminal defect are seen that would suggest pulmo nary embolus. The bone windows demonstrate no significant skeletal lesions. The visualized portions of the upper abdomen demonstrate to be unremarkable. IMPRESSION: No evidence for pulmonary embolism. Diffuse interlobular septal thickening with a subpleural sparing minimal dependent atelectatic change s. Findings suggest most likely nonspecific interstitial pneumonitis and/or interstitial lung disease such as UIP could be of consideration. Atherosclerotic disease thoracic aorta. Electronically signed by: Tray Steele MD 12/05/2021 3:53 AM BOAT REPAIRER Due to temporary technical issues with the PACS/Fluency reporting system, reports are being signed by the in house radiologist without review as a courtesy to ensure prompt reporting. The interpreting r adiologist is fully responsible for the content of the report.
--- NOTE | 2021-12-05 11:16 | EKG ---
Test Date: 2021-12-04 Test Time: 23:55:27 Threshing Operator: TW MEASUREMENT RESULTS: Intervals: Rate: 119 NM: 160 QRSD: 78 QT: 320 QTc: 450 [place]: P: NM: 160 QRS: 17 T: 267 INTERPRETIVE STATEMENTS: Sinus tachycardia Marked ST abnormality, possible inferior subendocardial injury Abnormal ECG Compared to ECG 07/30/2019 19:48:07 ST (T wave) deviation now present Sinus rhythm no longer present T-wave abnormality no longer present Possible ischemia no longer present Electronically Signed On 12-05-21 11:14:06 METHODS SPECIALIST ENGINEER by Eric Knott
[2021-12-05] MEDS ORDERED: VITAMIN D 1000 UNIT TAB ONE (12:46)
[2021-12-05] MEDS ORDERED: THIAMINE HCL 100 MG TABLET ONE (12:46)
[2021-12-05 14:15] VITALS: BMI 25.8
[2021-12-05] MEDS ORDERED: PNEUMOCOCCAL VACCINE 0.5 ML IMVAC ONE (15:00)
[2021-12-05] MEDS ORDERED: INFLUENZA VACCINE (for 6+ mo) 0.5 ML DOSE IMVAC ONE (15:00)
--- NOTE | 2021-12-05 16:26 | P.CNS ---
Date of Consult: 12/05/21 Reason for Consult: Hypokalemia Requesting Physician: Cristóbal Balbuena Primary Care Provider: Dr. Calvin Chief Complaint: Shortness of breath History of Present Illness: 70-year-old female with past medical history of hypertension, COPD, single kidney with CKD follows with Dr. Calvin admitted because of progressive shortness of breath since the last 2 weeks. Patient admits to receiving the Covid vaccine. On admission she was noted with O2 sats in the 70s on room air. She was initially placed on BiPAP. D-dimer was elevated as well as procalcitonin and CRP. Her Covid test was positive. Chest x-ray shows alveolar infiltrate consistent with Covid pneumonia. Her O2 sat improved with BiPAP and was weaned off to nasal cannula now. Patient was reportedly initially lethargic but more responsive now. She admits to tobacco use but states she quit 2 weeks ago. She denies any chest pain or palpitation. She has been admitted for Covid pneumonia with acute respiratory failure 00:53 This 70 yrs old Female presents to ER via Wheelchair with complaints of Shortness of jr8 breath. 00:53 Onset: The symptoms/episode began/occurred gradually, 1 week(s) ago. Severity of jr8 symptoms: At their worst the symptoms were moderate, in the emergency department the symptoms are unchanged. Modifying factors: The symptoms are alleviated by nothing. Associated signs and symptoms: Pertinent positives: vomiting, cough. The patient has not experienced similar symptoms in the past. The patient has not recently seen a physician. Allergies codeine Allergy (Severe, Verified 07/31/19 00:52) Anaphylaxis morphine Allergy (Severe, Verified 07/31/19 00:52) Anaphylaxis Home medications list reviewed: Yes Home Medications: Clopidogrel Bisulfate [Plavix*] 75 mg PO DAILY #30 tablet 01/16/16 Nitroglycerin [Nitrostat*] 1 tab PO PRN PRN #100 tab 01/16/16 clonazePAM [Clonazepam] 2 mg PO DAILY PRN #60 tablet 01/16/16 Citalopram [Celexa*] 40 mg PO DAILY #30 tablet 07/31/19 Gabapentin [Neurontin*] 300 mg PO TID PRN 07/31/19 Lovastatin 40 mg PO DAILY 30 Days #30 tablet 07/31/19 Metoprolol Succinate 50 mg PO DAILY 07/31/19 Telmisartan 80 mg PO BEDTIME 07/31/19 - Past Medical/Surgical History Diabetic: No -: HTN -: Heart stent -: Nerve damage repair L arm -: anxiety -: [place] -: -: Hysterectomy -: Ankle sx -: Appendectomy -: Ctarct Surgery - Family History Mother Medical History: Cancer Notes: Rectal Father Medical History: Heart disease, Cancer Notes: Lung Ca Brother Medical History: Diabetes - Social History Smoking Status: Current every day smoker Alcohol use: Yes CD- Drugs: No Caffeine use: Yes Review of Systems 10-point ROS is otherwise unremarkable General: Weakness, Malaise Gastrointestinal: Nausea, Diarrhea Neurological: Weakness Physical Examination Temp Pulse Resp BP Pulse Ox 97.6 F 68 20 142/56 H 96 12/05/21 15:30 12/05/21 15:30 12/05/21 15:30 12/05/21 15:30 12/05/21 15:30 General: Oriented x3, Cooperative, Mild distress HEENT: Atraumatic Neck: Supple Respiratory: Clear to auscultation bilaterally Cardiovascular: No edema, Regular rate/rhythm Gastrointestinal: Non-distended, Tenderness Musculoskeletal: No clubbing, No contractures Integumentary: No rashes, No cyanosis Neurological: Normal speech Laboratory Data (last 24 hrs) 12/05/21 01:02: WBC 6.70, Hgb 11.4 L, Hct 34.0 L, Plt Count 221 12/05/21 00:14: PT 17.2 H, INR 1.49, APTT 29.7 12/05/21 00:14: Sodium 136, Potassium 3.2 L, BUN 23 H, Creatinine 1.20, Glucose 139 H, Total Bilirubin 0.7, AST 21, ALT 13, Alkaline Phosphatase 97, Lipase 73 Imagings Data: EXAM DESCRIPTION: CT - Chest For Pe Angio - 12/05/2021 6:20 am CLINICAL HISTORY: 70 years, Female, DYSPNEA COMPARISON: None TECHNIQUE: Multiple transaxial tomograms of the chest were obtained from the lung apices through the lung bases utilizing 2 mm slice thickness at 2 mm interval reconstruction after the administration of large bolus of IV contrast for complete opacification of the pulmonary arteries. Subsequent 3-D maximum intensity projection images were generated in the coronal and sagittal plane for review. This exam was performed according to our departmental dose-optimization protocol, which includes automated exposure control, adjustment of the mA and/or kV according to patient size and/or use of iterative reconstruction technique. FINDINGS: The lungs parenchyma demonstrate interlobular septal thickening with a subpleural sparing minimal dependent atelectatic changes. Findings suggest most likely nonspecific interstitial pneumonitis and/or interstitial lung disease such as UIP could be of consideration. Calcified granuloma posterior segment right lower lobe. No masses, nodules and/or consolidations are identified. The trachea mainstem bronchus demonstrate to be normal. There is no significant pericardial or pleural effusions. The thoracic aorta demonstrate intimal calcification at the aortic throughout the thoracic aorta. The heart is normal in size. No evidence for right ventricular strain. There are minimal coronary artery calcifications There is no significant mediastinal and/or hilar lymphadenopathy. The axillary regions demonstrate to be clear. Pulmonary arteries demonstrate to be normal, no intraluminal defect are seen th at would suggest pulmonary embolus. The bone windows demonstrate no significant skeletal lesions. The visualized portions of the upper abdomen demonstrate to be unremarkable. IMPRESSION: No evidence for pulmonary embolism. Diffuse interlobular septal thickening with a subpleural sparing minimal dependent atelectatic changes. Findings suggest most likely nonspecific interstitial pneumonitis and/or interstitial lung disease such as UIP could be of consideration. Atherosclerotic disease thoracic aorta. EXAM DESCRIPTION: Fernando Single View12/05/2021 8:33 am CLINICAL HISTORY: Chest pain COMPARISON: 2019 FINDINGS: Moderate bilateral pulmonary opacities. Heart is mildly to moderately enlarged. IMPRESSION: Moderate bilateral pulmonary opacities probably pneumonia Conclusions/Impression: CKD III with Proteinuria -No NSAIDs Hypokalemia -Replete potassium HTN -Hydralazine prn -Hold Telmisartan DM II -Consider RISS Moderate malnutrition -Advance nutrition as tolerated Anemia in chronic illness -Monitor H&H COVID-19 -Continue steroids -Continue Rocephin Thank you kindly for the consultation.
--- NOTE | 2021-12-05 16:52 | P.CNS ---
Date of Consult: 12/05/21 Primary Care Provider: Dr. Calvin Chief Complaint: Shortness of breath History of Present Illness: Pt is 70 yrs of age AW COVID penumonai, CKD, c/o SOBOE for 2 wks. onBIPAPA,quit smoling 2 wks ago Allergies codeine Allergy (Severe, Verified 07/31/19 00:52) Anaphylaxis morphine Allergy (Severe, Verified 07/31/19 00:52) Anaphylaxis Home Medications: Clopidogrel Bisulfate [Plavix*] 75 mg PO DAILY #30 tablet 01/16/16 Nitroglycerin [Nitrostat*] 1 tab PO PRN PRN #100 tab 01/16/16 clonazePAM [Clonazepam] 2 mg PO DAILY PRN #60 tablet 01/16/16 Citalopram [Celexa*] 40 mg PO DAILY #30 tablet 07/31/19 Gabapentin [Neurontin*] 300 mg PO TID PRN 07/31/19 Lovastatin 40 mg PO DAILY 30 Days #30 tablet 07/31/19 Metoprolol Succinate 50 mg PO DAILY 07/31/19 Telmisartan 80 mg PO BEDTIME 07/31/19 - Past Medical/Surgical History Diabetic: No -: HTN -: Heart stent -: Nerve damage repair L arm -: anxiety -: [place] -: -: Hysterectomy -: Ankle sx -: Appendectomy -: Ctarct Surgery - Family History Mother Medical History: Cancer Notes: Rectal Father Medical History: Heart disease, Cancer Notes: Lung Ca Brother Medical History: Diabetes - Social History Smoking Status: Current every day smoker Alcohol use: Yes CD- Drugs: No Caffeine use: Yes Review of Systems General: Weakness Respiratory: Shortness of Breath Physical Examination Temp Pulse Resp BP Pulse Ox 97.6 F 68 20 142/56 H 96 12/05/21 15:30 12/05/21 15:30 12/05/21 15:30 12/05/21 15:30 12/05/21 15:30 General: Alert, Cooperative Respiratory: Clear to auscultation bilaterally, Diminished Laboratory Data (last 24 hrs) 12/05/21 01:02: WBC 6.70, Hgb 11.4 L, Hct 34.0 L, Plt Count 221 12/05/21 00:14: PT 17.2 H, INR 1.49, APTT 29.7 12/05/21 00:14: Sodium 136, Potassium 3.2 L, BUN 23 H, Creatinine 1.20, Glucose 139 H, Total Bilirubin 0.7, AST 21, ALT 13, Alkaline Phosphatase 97, Lipase 73 - Problems (1) Acute respiratory failure due to COVID-19 Current Visit: Yes Status: Acute Plan: AGe 70 Aw COVID penumonia, CT rev/ Midl renal insuff./ oxygen satisfactory. On 7 l titrate sat to 90%/ NE of shruthi sepsis/ Set up for home O2 [poss DC am
[2021-12-05] MEDS: ACETAMINOPHEN 500 MG TAB PO PRN (17:18)
[2021-12-05] MEDS: IPRATROPIUM BROM 0.5MG/2.5ML NEB PRN (20:00)
[2021-12-06] MEDS: METHYLPREDNISOLONE 40 MG INJ IV SCH ×3 (00:52→16:42)
[2021-12-06 04:12] LABS: Absolute Lymphocytes (CBC) 0.3 K/uL (0.7-4.9); Hematocrit 29.4 % (36.0-45.0); MPV 8.5 fL (7.6-11.3); RBC Red Blood Cell Count 3.47 M/uL (3.86-4.86)
[2021-12-06 04:23] LABS: Albumin 1.9 g/dL (3.4-5.0); Bilirubin Total 0.3 mg/dL (0.2-1.0); Ferritin 136.5 ng/mL (8-388); Magnesium 2.2 mg/dL (1.8-2.4); Potassium 3.5 mmol/L (3.5-5.1); Protein, Total 6.3 g/dL (6.4-8.2)
--- NOTE | 2021-12-06 06:13 | P.PN ---
Subjective Date of Service: 12/06/21 Primary Care Provider: Dr. Calvin Chief Complaint: Shortness of breath Subjective: Other (Patient reports improvement. Currently on 6 L per nasal cannula) Physical Examination - Vital Signs Temperature: 97.0 F Blood Pressure: 189/74 Pulse: 61 Respirations: 17 Pulse Ox (%): 94 - Studies Microbiology Data (last 24 hrs): 12/05/21 00:34 Blood - Blood Anaerobic Blood Culture - Final Assessment & Plan Discharge Plan: Home Plan to discharge in: Greater than 2 days Physician Review Additional Text: COVID: Positive Hx of Moderna vaccine in the past times 2 Initial CXR: COMPARISON: 2019 FINDINGS: Moderate bilateral pulmonary opacities. Heart is mildly to moderat adela enlarged. IMPRESSION: Moderate bilateral pulmonary opacities probably pneumonia CT chest: COMPARISON: None TECHNIQUE: Multiple transaxial tomograms of the chest were obtained from the lung apices through the lung bases utilizing 2 mm slice thickness at 2 mm interval reconstruction after the administration of large bolus of IV contrast for complete opacification of the pulmonary arteries. Subsequent 3-D maximum intensity projection images were generated in the coronal and sagittal plane for review. This exam was performed according to our departmental dose-optimization protocol, which includes automated exposure control, adjustment of the mA and/or kV according to patient size and/or use of iterative reconstruction technique. FINDINGS: The lungs parenchyma demonstrate interlobular septal thickening with a subpleural sparing minimal dependent atelectatic changes. Findings suggest most likely nonspecific interstitial pneumonitis and/or interstitial lung disease such as UIP could be of consideration. Calcified granuloma posterior segment right lower lobe. No masses, nodules and/or consolidations are identified. The trachea mainstem bronchus demonstrate to be normal. There is no significant pericardial or pleural effusions. The thoracic aorta demonstrate intimal calcification at the aortic throughout the thoracic aorta. The heart is normal in size. No evidence for right ventricular strain. There are minimal coronary artery calcifications There is no significant mediastinal and/or hilar lymphadenopathy. The axillary regions demonstrate to be clear. Pulmonary arteries demonstrate to be normal, no intraluminal defect are seen that would suggest pulmonary embolus. The bone windows demonstrate no significant skeletal lesions. The visualized portions of the upper abdomen demonstrate to be unremarkable. IMPRESSION: No evidence for pulmonary embolism. Diffuse interlobular septal thickening with a subpleural sparing minimal dependent atelectatic changes. Findings suggest most likely nonspecific interstitial pneumonitis and/or interstitial lung disease such as UIP could be of consideration. Atherosclerotic disease thoracic aorta. Follow up CXR 12/06/2021: COMPARISON: Chest Single View dated 12/05/2021; Chest Single View dated 07/30/2019; CHEST SINGLE VIEW dated 01/14/2016; CHEST SINGLE VIEW dated 01/30/2014; Chest For Pe Angio dated 12/05/2021 FINDINGS: Lines: None. Lungs: Hazy bilateral airspace opacities. Emphysema as well as other nonspecific interstitial opacities better demonstrated on the recent chest CT . Pleural: No significant pleural effusions or pneumothorax. Cardiac: Mild cardiomegaly. Bones: No acute fractures. IMPRESSION: Hazy bilateral airspace disease that could reflect multifocal pneumonia with or without a background of a mixed chronic restrictive/obstructive lung disease . Physical exam: General: Alert, In no apparent distress, Cooperative, Obese HEENT: Atraumatic, Normocephalic, PERRLA Neck: Supple, 2+ carotid pulse no bruit, JVD not distended Respiratory: Currently on 6 L per nasal cannula Cardiovascular: No edema, Regular rate/rhythm, Normal S1 S2 Gastrointestinal: Normal bowel sounds, Soft and benign, Non-distended Musculoskeletal: No clubbing, No swelling, No erythema Neurological: Normal gait, Normal speech, Normal strength at 5/5 x4 extr External genitalia: No edema, No lesions Impression: Acute respiratory failure secondary to COVID pneumonia complicated with COPD Tobacco abuse HTN UTI Chronic renal disease stage III CAD Hyperlipidemia Depression Chronic pain with neuropathy Plan: Acute respiratory failure secondary to COVID pneumonia complicated with COPD: Patient remains on 6 L per nasal cannula. CRP and ferritin improved. Continue to wean off oxygen to maintain sats above 93%. Continue IV Solu-Medrol. Contin ue treatment for COPDBrovana, albuterol, Atrovent. Will monitor CRP and ferritin. Will discuss with pulmonology. Encourage proning and lying on her side. Patient also being treated for UTI. Anticipate continued improvement over the next several days. Tobacco abuse: Continue nicotine patch. Provide education on cessation. HTN: Continue to hold telmisartan. Restart metoprolol succinate at lower dose of 25 mg daily. Hold if blood pressure systolic less than 110 or heart rate less than 60. We will continue to monitor and adjust medication. UTI: Urine culture shows gram-negative rods. Continue Rocephin IV. Acute on acute on chronic renal disease stage III: Renal function improved. Discontinue IV fluids. Encourage oral intake. Nephrology consulted. CAD: Restart Plavix 75 mg daily. Depression with anxiety: Restart Celexa 40 mg daily. Will provide clonazepam as needed. Hyperlipidemia: Restart lovastatin 40 mg daily. Chronic pain with neuropathy. Restart Neurontin 300 mg 3 times a day as needed CODE STATUS: Full code DVT prophylaxis: Lovenox Advance care [id number] minutes: Home at discharge Time Spent Managing Pts Care (In Minutes): 55
--- NOTE | 2021-12-06 07:39 | RAD REPORT ---
EXAM DESCRIPTION: RAD - Chest Single View - 12/06/2021 4:35 am CLINICAL HISTORY: Follow up COVID COMPARISON: Chest Single View dated 12/05/2021; Chest Single View dated 07/30/2019; CHEST SINGLE VIEW d ated 01/14/2016; CHEST SINGLE VIEW dated 01/30/2014; Chest For Pe Angio dated 12/05/2021 FINDINGS: Lines: None. Lungs: Hazy bilateral airspace opacities. Emphysema as well as other nonspecific interstitial opaciti es better demonstrated on the recent chest CT . Pleural: No significant pleural effusions or pneumothorax. Cardiac: Mild cardiomegaly. Bones: No acute fractures. Other: IMPRESSION: Hazy bilateral airspace disease that could reflect multifocal pneumonia with or without a background of a mixed chronic restrictive/obstructive lung disease .
[2021-12-06] MEDS: ARFORMOTEROL TARTRATE 15 MCG/2 ML VIAL.NEB NEB SCH ×2 (07:47→20:45)
[2021-12-06] MEDS: CEFTRIAXONE 1,000 MG in NA CHLORIDE 0.9% 50 ML IVPB SCH (08:40)
[2021-12-06] MEDS: THIAMINE HCL 100 MG TABLET PO SCH (08:40)
[2021-12-06] MEDS: ENOXAPARIN 40 MG/0.4 ML SQ SCH (08:41)
[2021-12-06] MEDS: NICOTINE 21 MG/PAT TD SCH (08:41)
[2021-12-06] MEDS: FAMOTIDINE 20 MG TAB PO SCH ×2 (08:42→20:35)
[2021-12-06] MEDS: ZINC SULFATE 220 MG CAP PO SCH (08:43)
[2021-12-06] MEDS ORDERED: VITAMIN D 1000 UNIT TAB PO SCH (09:00)
[2021-12-06] MEDS: ACETAMINOPHEN 500 MG TAB PO PRN (13:01)
--- NOTE | 2021-12-06 15:39 | P.PN ---
Subjective Date of Service: 12/06/21 Primary Care Provider: Dr. Calvin Chief Complaint: COVID penumonia Subjective: Improving (Doign better no new complaints) Review of Systems General: Weakness Respiratory: Shortness of Breath Physical Examination - Vital Signs Temperature: 97.1 F Blood Pressure: 170/77 Pulse: 73 Respirations: 16 Pulse Ox (%): 84 - Physical Exam General: Alert, In no apparent distress, Oriented x3, Mild distress - Studies Microbiology Data (last 24 hrs): 12/05/21 00:34 Blood - Blood Anaerobic Blood Culture - Final Assessment & Plan - Problems (Diagnosis) (1) Acute respiratory failure due to COVID-19 Current Visit: Yes Status: Acute Plan: Doign bettewr CW wean down on O2 labs and meds rev Poss DC home 1-2 daysurine 4 Plus [facility]/ NC in [facility]
[2021-12-06] MEDS: HYDRALAZINE HCL 20 MG/ML VIAL IV PRN (16:45)
[2021-12-06] MEDS: ATORVASTATIN 20 MG TAB PO SCH (20:35)
[2021-12-06] MEDS: LORAZEPAM 0.5 MG TABLET PO PRN (20:43)
--- NOTE | 2021-12-06 21:40 | P.PN ---
Date of Service: 12/06/21 Vital Signs Temp Pulse Resp BP Pulse Ox 97.3 F 73 16 140/66 90 L 12/06/21 16:00 12/06/21 16:00 12/06/21 16:00 12/06/21 18:05 12/06/21 16:00 Medications Acetaminophen (Acetaminophen 500 Mg Tab) 500 mg PO Q6H PRN PRN Reason: Pain scale 2-4 (Mild) Last Admin: 12/06/21 13:01 Dose: 500 mg Documented by: Albuterol Sulfate (Albuterol 2.5 Mg/3 Ml Neb Tara) 2.5 mg NEB Q6HP PRN PRN Reason: SHORTNESS OF BREATH Arformoterol Tartrate (Arformoterol Tartrate 15 Mcg/2 Ml Vial.Neb) 15 mcg NEB BIDRESP [facility] Last Admin: 12/06/21 07:47 Dose: 15 mcg Documented by: Atorvastatin Calcium (Atorvastatin 20 Mg Tab) 20 mg PO BEDTIME [facility] Last Admin: 12/06/21 20:35 Dose: 20 mg Documented by: Benzonatate (Benzonatate 100 Mg Cap) 200 mg PO TID PRN PRN Reason: COUGH Cholecalciferol (Vitamin D 1000 Unit Tab) 4,000 unit PO DAILY [facility] Last Admin: 12/06/21 08:40 Dose: 4,000 unit Documented by: Citalopram Hydrobromide (Citalopram 10 Mg Tablet) 40 mg PO DAILY [facility] Clopidogrel Bisulfate (Clopidogrel 75 Mg Tablet) 75 mg PO DAILY [facility] Enoxaparin Sodium (Enoxaparin 40 Mg/0.4 Ml) 40 mg SQ DAILY [facility] Last Admin: 12/06/21 08:41 Dose: 40 mg Documented by: Famotidine (Famotidine 20 Mg Tab) 20 mg PO BID [facility]; Protocol Last Admin: 12/06/21 20:35 Dose: 20 mg Documented by: Gabapentin (Gabapentin 300 Mg Cap) 300 mg PO TID PRN PRN Reason: Arm Pain Hydralazine HCl (Hydralazine Hcl 20 Mg/Ml Vial) 10 mg IV Q6HP PRN PRN Reason: Titrate to SBP (MUST DEFINE) Last Admin: 12/06/21 16:45 Dose: 10 mg Documented by: Ceftriaxone Sodium 1,000 mg/ (Sodium Chloride) 50 mls @ 100 mls/hr IVPB DAILY [facility]; Protocol Last Admin: 12/06/21 08:40 Dose: 50 mls Documented by: Ipratropium [place] (Ipratropium Brom 0.5mg/2.5ml) 0.5 mg NEB Q6HP PRN PRN Reason: SHORTNESS OF BREATH Last Admin: 12/05/21 20:00 Dose: 0.5 mg Documented by: Lorazepam (Lorazepam 0.5 Mg Tablet) 0.5 mg PO BID PRN PRN Reason: ANXIETY Last Admin: 12/06/21 20:43 Dose: 0.5 mg Documented by: Methylprednisolone Sodium Succinate (Methylprednisolone 40 Mg Inj) 40 mg IV Q8HR [facility] Last Admin: 12/06/21 16:42 Dose: 40 mg Documented by: Metoprolol Succinate (Metoprolol Xl 50 Mg Tab) 50 mg PO DAILY [facility] Nicotine (Nicotine 21 Mg/Pat) 21 mg TD DAILY [facility] Last Admin: 12/06/21 08:41 Dose: 21 mg Documented by: Ondansetron HCl (Ondansetron 4 Mg/2 Ml Vial) 4 mg IV Q8H PRN PRN Reason: NAUSEA / VOMITING Sodium Chloride (Flush Normal Saline 10 Ml) 10 ml IV BID [facility] Last Admin: 12/06/21 20:35 Dose: 10 ml Documented by: Thiamine HCl (Thiamine Hcl 100 Mg Tablet) 100 mg PO DAILY [facility] Last Admin: 12/06/21 08:40 Dose: 100 mg Documented by: Zinc Sulfate (Zinc Sulfate 220 Mg Cap) 220 mg PO DAILY [facility] Last Admin: 12/06/21 08:43 Dose: 220 mg Documented by: Microbiology Results 12/05/21 01:02 Clean Catch Urine [place] Count - Preliminary >100,000 CFU/ML. 12/05/21 01:02 Clean Catch Urine - Preliminary 12/05/21 00:34 Blood - Blood Aerobic Blood Culture - Preliminary No growth in 24 hours. 12/05/21 00:34 Blood - Blood Anaerobic Blood Culture - Final 12/05/21 00:14 Blood - Blood Aerobic Blood Culture - Preliminary No growth in 24 hours. 12/05/21 00:14 Blood - Blood Anaerobic Blood Culture - Preliminary No growth in 24 hours. Assessment/ Plan: Nephrology No dyspnea No chest pain Feeling better. Improving weakness. +BM yesterday No acute events overnight Vitals, medications, blood work and imaging reviewed in the chart General: Oriented x3, Cooperative, Mild distress HEENT: Atraumatic Neck: Supple Respiratory: Clear to auscultation bilaterally Cardiovascular: No edema, Regular rate/rhythm Gastrointestinal: Non-distended, Tenderness Musculoskeletal: No clubbing, No contractures Integumentary: No rashes, No cyanosis Neurological: Normal speech Laboratory Data (last 24 hrs) 12/05/21 01:02: WBC 6.70, Hgb 11.4 L, Hct 34.0 L, Plt Count 221 12/05/21 00:14: PT 17.2 H, INR 1.49, APTT 29.7 12/05/21 00:14: Sodium 136, Potassium 3.2 L, BUN 23 H, Creatinine 1.20, Glucose 139 H, Total Bilirubin 0.7, AST 21, ALT 13, Alkaline Phosphatase 97, Lipase 73 Imagings Data: EXAM DESCRIPTION: CT - Chest For Pe Angio - 12/05/2021 6:20 am CLINICAL HISTORY: 70 years, Female, DYSPNEA COMPARISON: None TECHNIQUE: Multiple transaxial tomograms of the chest were obtained from the lung apices through the lung bases utilizing 2 mm slice thickness at 2 mm interval reconstruction after the administration of large bolus of IV contrast for complete opacification of the pulmonary arteries. Subsequent 3-D maximum intensity projection images were generated in the coronal and sagittal plane for review. This exam was performed according to our departmental dose-optimization protocol, which includes automated exposure control, adjustment of the mA and/or kV according to patient size and/or use of iterative reconstruction technique. FINDINGS: The lungs parenchyma demonstrate interlobular septal thickening with a subpleural sparing minimal dependent atelectatic changes. Findings suggest most likely nonspecific interstitial pneumonitis and/or interstitial lung disease such as UIP could be of consideration. Calcified granuloma posterior segment right lower lobe. No masses, nodules and/or consolidations are identified. The trachea mainstem bronchus demonstrate to be normal. There is no significant pericardial or pleural effusions. The thoracic aorta demonstrate intimal calcification at the aortic throughout the thoracic aorta. The heart is normal in size. No evidence for right ventricular strain. There are minimal coronary artery calcifications There is no significant mediastinal and/or hilar lymphadenopathy. The axillary regions demonstrate to be clear. Pulmonary arteries demonstrate to be normal, no intraluminal defect are seen that would suggest pulmonary embolus. The bone windows demonstrate no significant skeletal lesions. The visualized portions of the upper abdomen demonstrate to be unremarkable. IMPRESSION: No evidence for pulmonary embolism. Diffuse interlobular septal thickening with a subpleural sparing minimal dependent atelectatic changes. Findings suggest most likely nonspecific interstitial pneumonitis and/or interstitial lung disease such as UIP could be of consideration. Atherosclerotic disease thoracic aorta. EXAM DESCRIPTION: Fernando Single View12/05/2021 8:33 am CLINICAL HISTORY: Chest pain COMPARISON: 2019 FINDINGS: Moderate bilateral pulmonary opacities. Heart is mildly to moderately enlarged. IMPRESSION: Moderate bilateral pulmonary opacities probably pneumonia Conclusions/Impression: CKD III with Proteinuria -No NSAIDs Hypokalemia -Replete potassium prn HTN -Hydralazine prn -Restart Telmisartan qhs DM II -Consider RISS Severe malnutrition -Start Ensure Anemia in chronic illness -Monitor H&H COVID-19 -Continue steroids -Continue Rocephin
[2021-12-06] MEDS: LACTOSE-REDUCED FOOD 330 ML LIQUID PO SCH (22:00)
[2021-12-06] MEDS ORDERED: VALSARTAN 40 MG TAB PO SCH (22:00)
[2021-12-07] MEDS: METHYLPREDNISOLONE 40 MG INJ IV SCH ×3 (01:27→16:51)
--- NOTE | 2021-12-07 05:48 | P.PN ---
Subjective Date of Service: 12/07/21 Primary Care Provider: Dr. Calvin Chief Complaint: COVID penumonia Subjective: Other (Overall stable. Increased oxygen requirement noted overnight. Now on 15 L) Physical Examination - Vital Signs Temperature: 97.6 F Blood Pressure: 145/77 Pulse: 87 Respirations: 17 Pulse Ox (%): 97 - Studies Microbiology Data (last 24 hrs): 12/05/21 00:34 Blood - Blood Anaerobic Blood Culture - Final Assessment & Plan Discharge Plan: Home Plan to discharge in: Greater than 2 days Physician Review Additional Text: COVID: Positive Hx of Moderna vaccine in the past times 2 Initial CXR: COMPARISON: 2019 FINDINGS: Moderate bilateral pulmonary opacities. Heart is mildly to moderately enlarged. IMPRESSION: Moderate bilateral pulmonary opacities probably pneumonia CT chest: COMPARISON: None TECHNIQUE: Multiple transaxial tomograms of the chest were obtained from the lung apices through the lung bases utilizing 2 mm slice thickness at 2 mm interval reconstruction after the administration of large bolus of IV contrast for complete opacification of the pulmonary arteries. Subsequent 3-D maximum intensity projection images were generated in the coronal and sagittal plane for review. This exam was performed according to our departmental dose-optimization protocol, which includes automated exposure control, adjustment of the mA and/or kV according to patient size and/or use of iterative reconstruction technique. FINDINGS: The lungs parenchyma demonstrate interlobular septal thickening with a subpleural sparing minimal dependent atelectatic changes. Findings suggest most likely nonspecific interstitial pneumonitis and/or interstitial lung disease such as UIP could be of consideration. Calcified granuloma posterior segment right lower lobe. No masses, nodules and/or consolidations are identified. The trachea mainstem bronchus demonstrate to be normal. There is no significant pericardial or pleural effusions. The thoracic aorta demonstrate intimal calcification at the aortic throughout the thoracic aorta. The heart is normal in size. No evidence for right ventricular strain. There are minimal coronary artery calcifications There is no significant mediastinal and/or hilar lymphadenopathy. The axillary regions demonstrate to be clear. Pulmonary arteries demonstrate to be normal, no intraluminal defect are seen that would suggest pulmonary embolus. The bone windows demonstrate no significant skeletal lesions. The visualized portions of the upper abdomen demonstrate to be unremarkable. IMPRESSION: No evidence for pulmonary embolism. Diffuse interlobular septal thickening with a subpleural sparing minimal dependent atelectatic changes. Findings suggest most likely nonspecific interstitial pneumonitis and/or interstitial lung disease such as UIP could be of consideration. Atherosclerotic disease thoracic aorta. Follow up CXR 12/06/2021: COMPARISON: Chest Single View dated 12/05/2021; Chest Single View dated 07/30/2019; CHEST SINGLE VIEW dated 01/14/2016; CHEST SINGLE VIEW dated 01/30/2014; Chest For Pe Angio dated 12/05/2021 FINDINGS: Lines: None. Lungs: Hazy bilateral airspace opacities. Emphysema as well as other nonspecific interstitial opacities better demonstrated on the recent chest CT . Pleural: No significant pleural effusions or pneumothorax. Cardiac: Mild cardiomegaly. Bones: No acute fractures. IMPRESSION: Hazy bilateral airspace disease that could reflect multifocal pneumonia with or without a background of a mixed chronic restrictive/obstructive lung disease . Physical exam: General: Alert, In no apparent distress, Cooperative, Obese HEENT: Atraumatic, Normocephalic, PERRLA Neck: Supple, 2+ carotid pulse no bruit, JVD not distended Respiratory: Currently on 15 L. No distress noted Cardiovascular: No edema, Regular rate/rhythm, Normal S1 S2 Gastrointestinal: Normal bowel sounds, Soft and benign, Non-distended Musculoskeletal: No clubbing, No swelling, No erythema Neurological: Normal gait, Normal speech, Normal strength at 5/5 x4 extr External genitalia: No edema, No lesions Impression: Acute respiratory failure secondary to COVID pneumonia complicated with COPD Tobacco abuse HTN UTI, urine culture positive for E. coli Chronic renal disease stage III CAD Hyperlipidemia Depression Chronic pain with neuropathy Plan: Acute respiratory failure secondary to COVID pneumonia complicated with COPD: Patient required increased oxygen requirement. Currently on 15 L. CRP and ferritin continues to slowly improve. Continue to wean off oxygen to maintain sats above 93%. Continue IV Solu-Medrol. Continue treatment for COPDBrovana, albuterol, Atrovent. Will continue to monitor CRP and ferritin. Continue to discuss with pulmonology. Encourage proning and lying on her side. Patient also being treated for UTI. Anticipate continued improvement over the next several days. Tobacco abuse: Continue nicotine patch. Provide education on cessation. HTN: Blood pressure elevated. Valsartan 40 mg daily added in place of telmisartan. Increase metoprolol XL to 50 mg daily. Hold if blood pressure systolic less than 110 or heart rate less than 60. We will continue to monitor and adjust medication. UTI, urine culture shows E. coli.: Urine culture reviewed. Will discontinue IV Rocephin. Change to Ceftin. Acute on acute on chronic renal disease stage III: Renal function improved. IV fluids discontinued yesterday. Encourage oral intake. Nephrology consulted. CAD: Continue Plavix 75 mg daily. Depression with anxiety: Continue Celexa 40 mg daily. Will provide clonazepam as needed. Hyperlipidemia: Continue ovastatin 40 mg daily. Chronic pain with neuropathy. Continue Neurontin 300 mg 3 times a day as needed CODE STATUS: Full code DVT prophylaxis: Lovenox Advance care [id number] minutes: Home at discharge Time Spent Managing Pts Care (In Minutes): 55
[2021-12-07 06:15] LABS: Absolute Lymphocytes (CBC) 0.4 K/uL (0.7-4.9); Lymphocytes % 3.2 % (15.3-44.8); MPV 8.2 fL (7.6-11.3); RBC Red Blood Cell Count 3.64 M/uL (3.86-4.86)
[2021-12-07 06:35] LABS: Bilirubin Total 0.3 mg/dL (0.2-1.0); C-Reactive Protein 54.2 mg/L (<3.00); Magnesium 2.5 mg/dL (1.8-2.4); Phosphorus 3.2 mg/dL (2.5-4.9); Potassium 3.7 mmol/L (3.5-5.1); Protein, Total 6.1 g/dL (6.4-8.2); Uric Acid 5.1 mg/dL (2.6-6.0)
[2021-12-07 07:13] LABS: Blood Morphology Comment NOTED (NOT SEEN); Platelet Estimate ADEQ
[2021-12-07 07:14] LABS: Burr Cells FEW; Elliptocytes 1+; Poikilocytosis 1+; Polychromasia 1+
[2021-12-07] MEDS: ARFORMOTEROL TARTRATE 15 MCG/2 ML VIAL.NEB NEB SCH ×2 (08:00→20:00)
[2021-12-07] MEDS: NICOTINE 21 MG/PAT TD SCH (08:36)
[2021-12-07] MEDS: BENZONATATE 100 MG CAP PO PRN ×2 (08:36→16:51)
[2021-12-07] MEDS: CITALOPRAM 10 MG TABLET PO SCH (08:36)
[2021-12-07] MEDS: FAMOTIDINE 20 MG TAB PO SCH ×2 (08:37→20:22)
[2021-12-07] MEDS: THIAMINE HCL 100 MG TABLET PO SCH (08:37)
[2021-12-07] MEDS: VITAMIN D 5,000 UNIT CAP PO SCH (08:37)
[2021-12-07] MEDS: CEFTRIAXONE 1,000 MG in NA CHLORIDE 0.9% 50 ML IVPB SCH (08:38)
[2021-12-07] MEDS: METOPROLOL XL 50 MG TAB PO SCH (08:38)
[2021-12-07] MEDS: ENOXAPARIN 40 MG/0.4 ML SQ SCH (08:38)
[2021-12-07] MEDS: CLOPIDOGREL 75 MG TABLET PO SCH (08:39)
[2021-12-07] MEDS: ZINC SULFATE 220 MG CAP PO SCH (08:40)
[2021-12-07] MEDS: ACETAMINOPHEN 500 MG TAB PO PRN (08:45)
[2021-12-07] MEDS: HYDRALAZINE HCL 20 MG/ML VIAL IV PRN (08:46)
[2021-12-07] MEDS: LACTOSE-REDUCED FOOD 330 ML LIQUID PO SCH ×3 (08:49→20:20)
[2021-12-07] MEDS ORDERED: METOPROLOL XL 50 MG TAB PO SCH (09:00)
[2021-12-07] MEDS ORDERED: METOPROLOL XL 25 MG TAB PO SCH (09:00)
[2021-12-07] MEDS ORDERED: HOME MED 1 EA UNK (Lovastatin [Lovastatin] 40 MG Tablet) PO SCH (09:00)
--- NOTE | 2021-12-07 09:58 | RAD REPORT ---
EXAM DESCRIPTION: Fernando Single View12/07/2021 9:40 am CLINICAL HISTORY: Chest pain COMPARISON: December 06, 2021 FINDINGS: Minimal improvement in the bilateral pulmonary opacities. Heart remains enlarged
[2021-12-07] MEDS: CEFUROXIME 250 MG TAB PO SCH ×2 (13:20→20:20)
[2021-12-07] MEDS: LORAZEPAM 0.5 MG TABLET PO PRN (13:20)
--- NOTE | 2021-12-07 13:47 | P.PN ---
Subjective Date of Service: 12/07/21 Primary Care Provider: Dr. Calvin Chief Complaint: COVID penumonia Well patient's condition is worsening requiring more oxygen and is currently on 15 L with low sat Review of Systems General: Weakness Respiratory: Shortness of Breath Physical Examination - Vital Signs Temperature: 97.6 F Blood Pressure: 145/77 Pulse: 87 Respirations: 17 Pulse Ox (%): 97 - Physical Exam General: Alert, Cooperative - Studies Microbiology Data (last 24 hrs): 12/05/21 01:02 Clean Catch Urine [place] Count - Final >100,000 CFU/ML. 12/05/21 01:02 Clean Catch Urine - Final Escherichia Coli Assessment & Plan - Problems (Diagnosis) (1) Acute respiratory failure due to COVID-19 Current Visit: Yes Status: Acute Plan: Respiratory failure oxygenation requirement has increased labs reviewed currently on 15 L of high flow oxygen with a sat around 90 labs reviewed patient qualifies for Barcitinib continue with steroid E. coli in the urine
[2021-12-07] MEDS: BARICITINIB 2 MG TABLET PO SCH (15:42)
[2021-12-07] MEDS: ATORVASTATIN 20 MG TAB PO SCH (20:22)
--- NOTE | 2021-12-07 20:31 | P.PN ---
Date of Service: 12/07/21 Vital Signs Temp Pulse Resp BP Pulse Ox 97.4 F 66 18 176/83 H 93 12/07/21 20:00 12/07/21 20:20 12/07/21 20:00 12/07/21 20:20 12/07/21 20:00 Medications Acetaminophen (Acetaminophen 500 Mg Tab) 500 mg PO Q6H PRN PRN Reason: Pain scale 2-4 (Mild) Last Admin: 12/07/21 08:45 Dose: 500 mg Documented by: Albuterol Sulfate (Albuterol 2.5 Mg/3 Ml Neb Tara) 2.5 mg NEB Q6HP PRN PRN Reason: SHORTNESS OF BREATH Arformoterol Tartrate (Arformoterol Tartrate 15 Mcg/2 Ml Vial.Neb) 15 mcg NEB BIDRESP [facility] Last Admin: 12/07/21 08:00 Dose: Not Given Documented by: Atorvastatin Calcium (Atorvastatin 20 Mg Tab) 20 mg PO BEDTIME [facility] Last Admin: 12/07/21 20:22 Dose: 20 mg Documented by: Benzonatate (Benzonatate 100 Mg Cap) 200 mg PO TID PRN PRN Reason: COUGH Last Admin: 12/07/21 16:51 Dose: 200 mg Documented by: Cefuroxime Axetil (Cefuroxime 250 Mg Tab) 250 mg PO BID [facility]; Protocol Last Admin: 12/07/21 20:20 Dose: 250 mg Documented by: Cholecalciferol (Vitamin D 5,000 Unit Cap) 5,000 unit PO DAILY [facility] Last Admin: 12/07/21 08:37 Dose: 5,000 unit Documented by: Citalopram Hydrobromide (Citalopram 10 Mg Tablet) 40 mg PO DAILY [facility] Last Admin: 12/07/21 08:36 Dose: 40 mg Documented by: Clopidogrel Bisulfate (Clopidogrel 75 Mg Tablet) 75 mg PO DAILY [facility] Last Admin: 12/07/21 08:39 Dose: 75 mg Documented by: Enoxaparin Sodium (Enoxaparin 40 Mg/0.4 Ml) 40 mg SQ DAILY [facility] Last Admin: 12/07/21 08:38 Dose: 40 mg Documented by: Famotidine (Famotidine 20 Mg Tab) 20 mg PO BID [facility]; Protocol Last Admin: 12/07/21 20:22 Dose: 20 mg Documented by: Gabapentin (Gabapentin 300 Mg Cap) 300 mg PO TID PRN PRN Reason: Arm Pain Hydralazine HCl (Hydralazine Hcl 20 Mg/Ml Vial) 10 mg IV Q6HP PRN PRN Reason: Titrate to SBP (MUST DEFINE) Last Admin: 12/07/21 08:46 Dose: 10 mg Documented by: Ipratropium [place] (Ipratropium Brom 0.5mg/2.5ml) 0.5 mg NEB Q6HP PRN PRN Reason: SHORTNESS OF BREATH Last Admin: 12/05/21 20:00 Dose: 0.5 mg Documented by: Lorazepam (Lorazepam 0.5 Mg Tablet) 0.5 mg PO BID PRN PRN Reason: ANXIETY Last Admin: 12/07/21 13:20 Dose: 0.5 mg Documented by: Methylprednisolone Sodium Succinate (Methylprednisolone 40 Mg Inj) 40 mg IV Q8HR [facility] Last Admin: 12/07/21 16:51 Dose: 40 mg Documented by: Metoprolol Succinate (Metoprolol Xl 50 Mg Tab) 50 mg PO DAILY [facility] Last Admin: 12/07/21 08:38 Dose: 50 mg Documented by: Nicotine (Nicotine 21 Mg/Pat) 21 mg TD DAILY [facility] Last Admin: 12/07/21 08:36 Dose: 21 mg Documented by: Ondansetron HCl (Ondansetron 4 Mg/2 Ml Vial) 4 mg IV Q8H PRN PRN Reason: NAUSEA / VOMITING Sodium Chloride (Flush Normal Saline 10 Ml) 10 ml IV BID [facility] Last Admin: 12/07/21 20:21 Dose: 10 ml Documented by: Thiamine HCl (Thiamine Hcl 100 Mg Tablet) 100 mg PO DAILY [facility] Last Admin: 12/07/21 08:37 Dose: 100 mg Documented by: Valsartan (Valsartan 40 Mg Tab) 40 mg PO BID [facility] Zinc Sulfate (Zinc Sulfate 220 Mg Cap) 220 mg PO DAILY [facility] Last Admin: 12/07/21 08:40 Dose: 220 mg Documented by: Microbiology Results 12/05/21 01:02 Clean Catch Urine [place] Count - Final >100,000 CFU/ML. 12/05/21 01:02 Clean Catch Urine - Final Escherichia Coli 12/05/21 00:34 Blood - Blood Aerobic Blood Culture - Preliminary No growth in 24 hours. 12/05/21 00:34 Blood - Blood Anaerobic Blood Culture - Final 12/05/21 00:14 Blood - Blood Aerobic Blood Culture - Preliminary No growth in 24 hours. 12/05/21 00:14 Blood - Blood Anaerobic Blood Culture - Preliminary No growth in 24 hours. Assessment/ Plan: Nephrology No dyspnea. TOM. No chest pain Feeling better. Improving weakness. +BM yesterday No acute events overnight Vitals, medications, blood work and imaging reviewed in the chart General: Oriented x3, Cooperative, Mild distress HEENT: Atraumatic Neck: Supple Respiratory: Clear to auscultation bilaterally Cardiovascular: No edema, Regular rate/rhythm Gastrointestinal: Non-distended, Tenderness Musculoskeletal: No clubbing, No contractures Integumentary: No rashes, No cyanosis Neurological: Normal speech Laboratory Data (last 24 hrs) 12/05/21 01:02: WBC 6.70, Hgb 11.4 L, Hct 34.0 L, Plt Count 221 12/05/21 00:14: PT 17.2 H, INR 1.49, APTT 29.7 12/05/21 00:14: Sodium 136, Potassium 3.2 L, BUN 23 H, Creatinine 1.20, Glucose 139 H, Total Bilirubin 0.7, AST 21, ALT 13, Alkaline Phosphatase 97, Lipase 73 Imagings Data: EXAM DESCRIPTION: CT - Chest For Pe Angio - 12/05/2021 6:20 am CLINICAL HISTORY: 70 years, Female, DYSPNEA COMPARISON: None TECHNIQUE: Multiple transaxial tomograms of the chest were obtained from the lung apices through the lung bases utilizing 2 mm slice thickness at 2 mm interval reconstruction after the administration of large bolus of IV contrast for complete opacification of the pulmonary arteries. Subsequent 3-D maximum intensity projection images were generated in the coronal and sagittal plane for review. This exam was performed according to our departmental dose-optimization protocol, which includes automated exposure control, adjustment of the mA and/or kV according to patient size and/or use of iterative reconstruction technique. FINDINGS: The lungs parenchyma demonstrate interlobular septal thickening with a subpleural sparing minimal dependent atelectatic changes. Findings suggest most likely nonspecific interstitial pneumonitis and/or interstitial lung disease such as UIP could be of consideration. Calcified granuloma posterior segment right lower lobe. No masses, nodules and/or consolidations are identified. The trachea mainstem bronchus demonstrate to be normal. There is no significant pericardial or pleural effusions. The thoracic aorta demonstrate intimal calcification at the aortic throughout the thoracic aorta. The heart is normal in size. No evidence for right ventricular strain. There are minimal coronary artery calcifications There is no significant mediastinal and/or hilar lymphadenopathy. The axillary regions demonstrate to be clear. Pulmonary arteries demonstrate to be normal, no intraluminal defect are seen that would suggest pulmonary embolus. The bone windows demonstrate no significant skeletal lesions. The visualized portions of the upper abdomen demonstrate to be unremarkable. IMPRESSION: No evidence for pulmonary embolism. Diffuse interlobular septal thickening with a subpleural sparing minimal dependent atelectatic changes. Findings suggest most likely nonspecific interstitial pneumonitis and/or interstitial lung disease such as UIP could be of consideration. Atherosclerotic disease thoracic aorta. EXAM DESCRIPTION: [place] Single View12/05/2021 8:33 am CLINICAL HISTORY: Chest pain COMPARISON: 2019 FINDINGS: Moderate bilateral pulmonary opacities. Heart is mildly to moderate ly enlarged. IMPRESSION: Moderate bilateral pulmonary opacities probably pneumonia Conclusions/Impression: CKD III with Proteinuria -No NSAIDs Hypokalemia -Replete potassium prn HTN -Hydralazine prn -Increase Valsartan BID DM II -Consider RISS Severe malnutrition -Continue Ensure Anemia in chronic illness -Monitor H&H Acute cystitis -Continue Ceftin COVID-19 -Continue steroids -Continue Rocephin -Continue Oxygen supplementation
[2021-12-07] MEDS: VALSARTAN 40 MG TAB PO SCH (21:00)
[2021-12-07] MEDS ORDERED: VALSARTAN 40 MG TAB PO SCH (21:00)
[2021-12-08] MEDS: METHYLPREDNISOLONE 40 MG INJ IV SCH ×3 (01:18→16:22)
[2021-12-08] MEDS: HYDRALAZINE HCL 20 MG/ML VIAL IV PRN ×2 (05:48→17:17)
--- NOTE | 2021-12-08 06:05 | P.PN ---
Subjective Date of Service: 12/08/21 Primary Care Provider: Dr. Calvin Chief Complaint: COVID penumonia Subjective: Improving (Patient reports some improvement.) Physical Examination - Vital Signs Temperature: 97.2 F Blood Pressure: 192/91 Pulse: 77 Respirations: 17 Pulse Ox (%): 92 - Studies Microbiology Data (last 24 hrs): 12/05/21 01:02 Clean Catch Urine [place] Count - Final >100,000 CFU/ML. 12/05/21 01:02 Clean Catch Urine - Final Escherichia Coli Assessment & Plan Discharge Plan: Home Plan to discharge in: Greater than 2 days Physician Review Additional Text: COVID: Positive Hx of Moderna vaccine in the past times 2 Initial CXR: COMPARISON: 2019 FINDINGS: Moderate bilateral pulmonary opacities. Heart is mildly to moderately enlarged. IMPRESSION: Moderate bilateral pulmonary opacities probably pneumonia CT chest: COMPARISON: None TECHNIQUE: Multiple transaxial tomograms of the chest were obtained from the lung apices through the lung bases utilizing 2 mm slice thickness at 2 mm interval reconstruction after the administration of large bolus of IV contrast for complete opacification of the pulmonary arteries. Subsequent 3-D maximum intensity projection images were generated in the coronal and sagittal plane for review. This exam was performed according to our departmental dose-optimization protocol, which includes automated exposure control, adjustment of the mA and/or kV according to patient size and/or use of iterative reconstruction technique. FINDINGS: The lungs parenchyma demonstrate interlobular septal thickening with a subpleural sparing minimal dependent atelectatic changes. Findings suggest most likely nonspecific interstitial pneumonitis and/or interstitial lung disease such as UIP could be of consideration. Calcified granuloma posterior segment right lower lobe. No masses, nodules and/or consolidations are identified. The trachea mainstem bronchus demonstrate to be normal. There is no significant pericardial or pleural effusions. The thoracic aorta demonstrate intimal calcification at the aortic throughout the thoracic aorta. The heart is normal in size. No evidence for right ventricular strain. There are minimal coronary artery calcifications There is no significant mediastinal and/or hilar lymphadenopathy. The axillary regions demonstrate to be clear. Pulmonary arteries demonstrate to be normal, no intraluminal defect are seen that would suggest pulmonary embolus. The bone windows demonstrate no significant skeletal lesions. The visualized portions of the upper abdomen demonstrate to be unremarkable. IMPRESSION: No evidence for pulmonary embolism. Diffuse interlobular septal thickening with a subpleural sparing minimal dependent atelectatic changes. Findings suggest most likely nonspecific interstitial pneumonitis and/or interstitial lung disease such as UIP could be of consideration. Atherosclerotic disease thoracic aorta. Follow up CXR 12/06/2021: COMPARISON: Chest Single View dated 12/05/2021; Chest Single View dated 07/30/2019; CHEST SINGLE VIEW dated 01/14/2016; CHEST SINGLE VIEW dated 01/30/2014; Chest For Pe Angio dated 12/05/2021 FINDINGS: Lines: None. Lungs: Hazy bilateral airspace opacities. Emphysema as well as other nonspecific interstitial opacities better demonstrated on the recent chest CT . Pleural: No significant pleural effusions or pneumothorax. Cardiac: Mild cardiomegaly. Bones: No acute fractures. IMPRESSION: Hazy bilateral airspace disease that could reflect multifocal pneumonia with or without a background of a mixed chronic restrictive/obstructive lung disease . Physical exam: General: Alert, In no apparent distress, Cooperative, Obese HEENT: Atraumatic, Normocephalic, PERRLA Neck: Supple, 2+ carotid pulse no bruit, JVD not distended Respiratory: Patient doing well. Was on 10 L this morning. Cardiovascular: No edema, Regular rate/rhythm, Normal S1 S2 Gastrointestinal: Normal bowel sounds, Soft and benign, Non-distended Musculoskeletal: No clubbing, No swelling, No erythema Neurological: Normal gait, Normal speech, Normal strength at 5/5 x4 extr External genitalia: No edema, No lesions Impression: Acute respiratory failure secondary to COVID pneumonia complicated with COPD Tobacco abuse HTN UTI, urine culture positive for E. coli Chronic renal disease stage III CAD Hyperlipidemia Depression Chronic pain with neuropathy Plan: Acute respiratory failure secondary to COVID pneumonia complicated with COPD: Patient doing better today than yesterday. Currently on 10 L. CRP and ferritin continues to slowly improve. Continue to wean off oxygen to maintain sats above 93%. Continue IV Solu-Medrol. Continue treatment for COPDBrovana, albuterol, Atrovent. Will continue to monitor CRP and ferritin. Continue to discuss with pulmonology. Encourage proning and lying on her side. Patient also being treated for UTI. Anticipate continued improvement over the next several days. Tobacco abuse: Continue nicotine patch. Provide education on cessation. HTN: Blood pressure improved. Currently on valsartan 40 mg daily. And metoprolol XL to 50 mg daily. Hold if blood pressure systolic less than 110 or heart rate less than 60. We will continue to monitor and adjust medication. UTI, urine culture shows E. coli.: Urine culture reviewed. Continue Ceftin. Acute on acute on chronic renal disease stage III: Renal function improved. IV fluids discontinued yesterday. Encourage oral intake. Nephrology consulted. CAD: Continue Plavix 75 mg daily. Depression with anxiety: Continue Celexa 40 mg daily. Will provide clonazepam as needed. Hyperlipidemia: Continue Lovastatin 40 mg daily. Chronic pain with neuropathy. Continue Neurontin 300 mg 3 times a day as needed CODE STATUS: Full code DVT prophylaxis: Lovenox Advance care [id number] minutes: Home at discharge Time Spent Managing Pts Care (In Minutes): 55
[2021-12-08 06:40] LABS: Absolute Lymphocytes (CBC) 0.4 K/uL (0.7-4.9); Hematocrit 31.7 % (36.0-45.0); Lymphocytes % 4.2 % (15.3-44.8); MPV 8.4 fL (7.6-11.3); RBC Red Blood Cell Count 3.65 M/uL (3.86-4.86)
[2021-12-08 06:51] LABS: Albumin 2.1 g/dL (3.4-5.0); Bilirubin Total 0.4 mg/dL (0.2-1.0); Ferritin 144.8 ng/mL (8-388); Magnesium 2.5 mg/dL (1.8-2.4); Potassium 3.8 mmol/L (3.5-5.1)
--- NOTE | 2021-12-08 07:19 | RAD REPORT ---
EXAM DESCRIPTION: RAD - Chest Single View - 12/08/2021 5:07 am CLINICAL HISTORY: COVID-19 positive test (U07.1, COVID-19) with Ac COMPARISON: Portable December 07, portable December 06, CT chest December 05 TECHNIQUE: AP portable chest image was obtained 12/08/2021 5:07 am . FINDINGS: The predominantly interstitial opacification pattern is still present without any further improvement since December 07. No progression of lung disease seen. Heart size is prominent but stable. Upper lobe vasculature within normal limits. Trachea is midline. No measurable pleural effusion and no pneumothorax. No acute bony abnormality seen. No acute aortic f indings suspected. IMPRESSION: Diffuse interstitial opacification with minimal airspace involvement. Findings are stable with no further improvement since December 07.
[2021-12-08] MEDS: IPRATROPIUM BROM 0.5MG/2.5ML NEB PRN ×2 (08:47→19:50)
[2021-12-08] MEDS: ARFORMOTEROL TARTRATE 15 MCG/2 ML VIAL.NEB NEB SCH ×2 (08:47→19:50)
[2021-12-08] MEDS: VITAMIN D 5,000 UNIT CAP PO SCH (09:00)
[2021-12-08] MEDS: LACTOSE-REDUCED FOOD 330 ML LIQUID PO SCH ×3 (09:00→21:00)
[2021-12-08] MEDS: METOPROLOL XL 50 MG TAB PO SCH (09:25)
[2021-12-08] MEDS: THIAMINE HCL 100 MG TABLET PO SCH (09:25)
[2021-12-08] MEDS: FAMOTIDINE 20 MG TAB PO SCH ×2 (09:26→21:01)
[2021-12-08] MEDS: NICOTINE 21 MG/PAT TD SCH (09:26)
[2021-12-08] MEDS: CLOPIDOGREL 75 MG TABLET PO SCH (09:26)
[2021-12-08] MEDS: CITALOPRAM 10 MG TABLET PO SCH (09:26)
[2021-12-08] MEDS: CEFUROXIME 250 MG TAB PO SCH ×2 (09:28→21:01)
[2021-12-08] MEDS: ZINC SULFATE 220 MG CAP PO SCH (09:28)
[2021-12-08] MEDS: BARICITINIB 2 MG TABLET PO SCH (09:28)
[2021-12-08] MEDS: ENOXAPARIN 40 MG/0.4 ML SQ SCH (09:29)
[2021-12-08] MEDS: VALSARTAN 40 MG TAB PO SCH ×2 (10:13→21:00)
--- NOTE | 2021-12-08 10:50 | P.PN ---
Subjective Date of Service: 12/08/21 Primary Care Provider: Dr. Calvin Chief Complaint: COVID penumonia Condition stable feeling better however still has breath significant desaturation high concentrations of oxygen Review of Systems General: Weakness Respiratory: Shortness of Breath Physical Examination - Vital Signs Temperature: 97.7 F Blood Pressure: 132/71 Pulse: 80 Respirations: 23 Pulse Ox (%): 88 - Physical Exam General: Alert, Cooperative Respiratory: Clear to auscultation bilaterally, Diminished - Studies Microbiology Data (last 24 hrs): 12/05/21 01:02 Clean Catch Urine [place] Count - Final >100,000 CFU/ML. 12/05/21 01:02 Clean Catch Urine - Final Escherichia Coli Assessment & Plan - Problems (Diagnosis) (1) Acute respiratory failure due to COVID-19 Current Visit: Yes Status: Acute Plan: Respiratory failure from coronavirus still on high concentrations of oxygen patient is on steroids and Barcitinib chest x-ray shows some interstitial changes
[2021-12-08] MEDS: ACETAMINOPHEN 500 MG TAB PO PRN (17:18)
[2021-12-08] MEDS: ATORVASTATIN 20 MG TAB PO SCH (21:01)
--- NOTE | 2021-12-08 21:26 | P.PN ---
Date of Service: 12/08/21 Vital Signs Temp Pulse Resp BP Pulse Ox 97.8 F 65 24 H 121/59 L 94 12/08/21 16:00 12/08/21 21:00 12/08/21 16:00 12/08/21 21:00 12/08/21 16:00 Medications Acetaminophen (Acetaminophen 500 Mg Tab) 500 mg PO Q6H PRN PRN Reason: Pain scale 2-4 (Mild) Last Admin: 12/08/21 17:18 Dose: 500 mg Documented by: Albuterol Sulfate (Albuterol 2.5 Mg/3 Ml Neb Tara) 2.5 mg NEB Q6HP PRN PRN Reason: SHORTNESS OF BREATH Arformoterol Tartrate (Arformoterol Tartrate 15 Mcg/2 Ml Vial.Neb) 15 mcg NEB BIDRESP [facility] Last Admin: 12/08/21 19:50 Dose: 15 mcg Documented by: Atorvastatin Calcium (Atorvastatin 20 Mg Tab) 20 mg PO BEDTIME [facility] Last Admin: 12/08/21 21:01 Dose: 20 mg Documented by: Benzonatate (Benzonatate 100 Mg Cap) 200 mg PO TID PRN PRN Reason: COUGH Last Admin: 12/07/21 16:51 Dose: 200 mg Documented by: Cefuroxime Axetil (Cefuroxime 250 Mg Tab) 250 mg PO BID [facility]; Protocol Last Admin: 12/08/21 21:01 Dose: 250 mg Documented by: Cholecalciferol (Vitamin D 5,000 Unit Cap) 5,000 unit PO DAILY [facility] Last Admin: 12/08/21 09:00 Dose: 5,000 unit Documented by: Citalopram Hydrobromide (Citalopram 10 Mg Tablet) 40 mg PO DAILY [facility] Last Admin: 12/08/21 09:26 Dose: 40 mg Documented by: Clopidogrel Bisulfate (Clopidogrel 75 Mg Tablet) 75 mg PO DAILY [facility] Last Admin: 12/08/21 09:26 Dose: 75 mg Documented by: Enoxaparin Sodium (Enoxaparin 40 Mg/0.4 Ml) 40 mg SQ DAILY [facility] Last Admin: 12/08/21 09:29 Dose: 40 mg Documented by: Famotidine (Famotidine 20 Mg Tab) 20 mg PO BID [facility]; Protocol Last Admin: 12/08/21 21:01 Dose: 20 mg Documented by: Gabapentin (Gabapentin 300 Mg Cap) 300 mg PO TID PRN PRN Reason: Arm Pain Hydralazine HCl (Hydralazine Hcl 20 Mg/Ml Vial) 10 mg IV Q6HP PRN PRN Reason: Titrate to SBP (MUST DEFINE) Last Admin: 12/08/21 17:17 Dose: 10 mg Documented by: Ipratropium [place] (Ipratropium Brom 0.5mg/2.5ml) 0.5 mg NEB Q6HP PRN PRN Reason: SHORTNESS OF BREATH Last Admin: 12/08/21 19:50 Dose: 0.5 mg Documented by: Lorazepam (Lorazepam 0.5 Mg Tablet) 0.5 mg PO BID PRN PRN Reason: ANXIETY Last Admin: 12/07/21 13:20 Dose: 0.5 mg Documented by: Methylprednisolone Sodium Succinate (Methylprednisolone 40 Mg Inj) 40 mg IV Q8HR [facility] Last Admin: 12/08/21 16:22 Dose: 40 mg Documented by: Metoprolol Succinate (Metoprolol Xl 50 Mg Tab) 50 mg PO DAILY [facility] Last Admin: 12/08/21 09:25 Dose: 50 mg Documented by: Nicotine (Nicotine 21 Mg/Pat) 21 mg TD DAILY [facility] Last Admin: 12/08/21 09:26 Dose: 21 mg Documented by: Ondansetron HCl (Ondansetron 4 Mg/2 Ml Vial) 4 mg IV Q8H PRN PRN Reason: NAUSEA / VOMITING Sodium Chloride (Flush Normal Saline 10 Ml) 10 ml IV BID [facility] Last Admin: 12/08/21 21:03 Dose: 10 ml Documented by: Thiamine HCl (Thiamine Hcl 100 Mg Tablet) 100 mg PO DAILY [facility] Last Admin: 12/08/21 09:25 Dose: 100 mg Documented by: Valsartan (Valsartan 40 Mg Tab) 40 mg PO BID [facility] Last Admin: 12/08/21 21:00 Dose: Not Given Documented by: Zinc Sulfate (Zinc Sulfate 220 Mg Cap) 220 mg PO DAILY [facility] Last Admin: 12/08/21 09:28 Dose: 220 mg Documented by: Microbiology Results 12/05/21 01:02 Clean Catch Urine [place] Count - Final >100,000 CFU/ML. 12/05/21 01:02 Clean Catch Urine - Final Escherichia Coli 12/05/21 00:34 Blood - Blood Aerobic Blood Culture - Preliminary No growth in 24 hours. 12/05/21 00:34 Blood - Blood Anaerobic Blood Culture - Final 12/05/21 00:14 Blood - Blood Aerobic Blood Culture - Preliminary No growth in 24 hours. 12/05/21 00:14 Blood - Blood Anaerobic Blood Culture - Preliminary No growth in 24 hours. Assessment/ Plan: Nephrology No dyspnea. TOM. No chest pain Feeling better. No acute events overnight Vitals, medications, blood work and imaging reviewed in the chart General: Oriented x3, Cooperative, Mild distress HEENT: Atraumatic Neck: Supple Respiratory: Clear to auscultation bilaterally Cardiovascular: No edema, Regular rate/rhythm Gastrointestinal: Non-distended, Tenderness Musculoskeletal: No clubbing, No contractures Integumentary: No rashes, No cyanosis Neurological: Normal speech Laboratory Data (last 24 hrs) 12/05/21 01:02: WBC 6.70, Hgb 11.4 L, Hct 34.0 L, Plt Count 221 12/05/21 00:14: PT 17.2 H, INR 1.49, APTT 29.7 12/05/21 00:14: Sodium 136, Potassium 3.2 L, BUN 23 H, Creatinine 1.20, Glucose 139 H, Total Bilirubin 0.7, AST 21, ALT 13, Alkaline Phosphatase 97, Lipase 73 Imagings Data: EXAM DESCRIPTION: CT - Chest For Pe Angio - 12/05/2021 6:20 am CLINICAL HISTORY: 70 years, Female, DYSPNEA COMPARISON: None TECHNIQUE: Multiple transaxial tomograms of the chest were obtained from the lung apices through the lung bases utilizing 2 mm slice thickness at 2 mm interval reconstruction after the administration of large bolus of IV contrast for complete opacification of the pulmonary arteries. Subsequent 3-D maximum intensity projection images were generated in the coronal and sagittal plane for review. This exam was performed according to our departmental dose-optimization protocol, which includes automated exposure control, adjustment of the mA and/or kV according to patient size and/or use of iterative reconstruction technique. FINDINGS: The lungs parenchyma demonstrate interlobular septal thickening with a subpleural sparing minimal dependent atelectatic changes. Findings suggest most likely nonspecific interstitial pneumonitis and/or interstitial lung disease such as UIP could be of consideration. Calcified granuloma posterior segment right lower lobe. No masses, nodules and/or consolidations are identified. The trachea mainstem bronchus demonstrate to be normal. There is no significant pericardial or pleural effusions. The thoracic aorta demonstrate intimal calcification at the aortic throughout the thoracic aorta. The heart is normal in size. No evidence for right ventricular strain. There are minimal coronary artery calcifications There is no significant mediastinal and/or hilar lymphadenopathy. The axillary regions demonstrate to be clear. Pulmonary arteries demonstrate to be normal, no intraluminal defect are seen that would suggest pulmonary embolus. The bone windows demonstrate no significant skeletal lesions. The visualized portions of the upper abdomen demonstrate to be unremarkable. IMPRESSION: No evidence for pulmonary embolism. Diffuse interlobular septal thickening with a subpleural sparing minimal dependent atelectatic changes. Findings suggest most likely nonspecific interstitial pneumonitis and/or interstitial lung disease such as UIP could be of consideration. Atherosclerotic disease thoracic aorta. EXAM DESCRIPTION: [place] Single View12/05/2021 8:33 am CLINICAL HISTORY: Chest pain COMPARISON: 2019 FINDINGS: Moderate bilateral pulmonary opacities. Heart is mildly to moderately enlarged. IMPRESSION: Moderate bilateral pulmonary opacities probably pneumonia Conclusions/Impression: CKD III with Proteinuria -No NSAIDs Hypokalemia -Replete potassium prn HTN with CKD -Hydralazine prn -Continue Valsartan BID DM II with CKD -Consider RISS Severe malnutrition -Continue Ensure Anemia in chronic illness -Monitor H&H Acute cystitis -Continue Ceftin COVID-19 -Continue steroids -Continue Rocephin -Wean Oxygen as tolerated Case reviewed with Dr. Balbuena
[2021-12-09] MEDS: LORAZEPAM 0.5 MG TABLET PO PRN ×2 (00:33→21:02)
[2021-12-09] MEDS: METHYLPREDNISOLONE 40 MG INJ IV SCH ×3 (00:33→17:26)
[2021-12-09] MEDS: GABAPENTIN 300 MG CAP PO PRN ×2 (00:33→17:26)
[2021-12-09] MEDS: BENZONATATE 100 MG CAP PO PRN ×3 (00:34→20:55)
--- NOTE | 2021-12-09 05:46 | P.PN ---
Subjective Date of Service: 12/09/21 Primary Care Provider: Dr. Calvin Chief Complaint: COVID penumonia Subjective: Other (Patient reports improvement. Higher oxygen requirement noted today.) Physical Examination - Vital Signs Temperature: 98.2 F Blood Pressure: 156/76 Pulse: 82 Respirations: 19 Pulse Ox (%): 91 Assessment & Plan Discharge Plan: Home Plan to discharge in: Greater than 2 days Physician Review Additional Text: COVID: Positive Hx of Moderna vaccine in the past times 2 Initial CXR: COMPARISON: 2019 FINDINGS: Moderate bilateral pulmonary opacities. Heart is mildly to moderately enlarged. IMPRESSION: Moderate bilateral pulmonary opacities probably pneumonia CT chest: COMPARISON: None TECHNIQUE: Multiple transaxial tomograms of the chest were obtained from the lung apices through the lung bases utilizing 2 mm slice thickness at 2 mm interval reconstruction after the administration of large bolus of IV contrast for complete opacification of the pulmonary arteries. Subsequent 3-D maximum intensity projection images were generated in the coronal and sagittal plane for review. This exam was performed according to our departmental dose-optimization protocol, which includes automated exposure control, adjustment of the mA and/or kV according to patient size and/or use of iterative reconstruction technique. FINDINGS: The lungs parenchyma demonstrate interlobular septal thickening with a subpleural sparing minimal dependent atelectatic changes. Findings suggest m ost likely nonspecific interstitial pneumonitis and/or interstitial lung disease such as UIP could be of consideration. Calcified granuloma posterior segment right lower lobe. No masses, nodules and/or consolidations are identified. The trachea mainstem bronchus demonstrate to be normal. There is no significant pericardial or pleural effusions. The thoracic aorta demonstrate intimal calcification at the aortic throughout the thoracic aorta. The heart is normal in size. No evidence for right ventricular strain. There are minimal coronary artery calcifications There is no significant mediastinal and/or hilar lymphadenopathy. The axillary regions demonstrate to be clear. Pulmonary arteries demonstrate to be normal, no intraluminal defect are seen that would suggest pulmonary embolus. The bone windows demonstrate no significant skeletal lesions. The visualized portions of the upper abdomen demonstrate to be unremarkable. IMPRESSION: No evidence for pulmonary embolism. Diffuse interlobular septal thickening with a subpleural sparing minimal dependent atelectatic changes. Findings suggest most likely nonspecific interstitial pneumonitis and/or interstitial lung disease such as UIP could be of consideration. Atherosclerotic disease thoracic aorta. Follow up CXR 12/08/2021: COMPARISON: Portable December 07, portable December 06, CT chest December 05 TECHNIQUE: AP portable chest image was obtained 12/08/2021 5:07 am . FINDINGS: The predominantly interstitial opacification pattern is still present without any further improvement since December 07. No progression of lung disease seen. Heart size is prominent but stable. Upper lobe vasculature within normal limits. Trachea is midline. No measurable pleural effusion and no pneumothorax. No acute bony abnormality seen. No acute aortic findings suspected. IMPRESSION: Diffuse interstitial opacification with minimal airspace involvement. Findings are stable with no further improvement since December 07. Physical exam: General: Alert, In no apparent distress, Cooperative, Obese HEENT: Atraumatic, Normocephalic, PERRLA Neck: Supple, 2+ carotid pulse no bruit, JVD not distended Respiratory: Patient on high flow at 100%. Cardiovascular: No edema, Regular rate/rhythm, Normal S1 S2 Gastrointestinal: Normal bowel sounds, Soft and benign, Non-distended Musculoskeletal: No clubbing, No swelling, No erythema Neurological: Normal gait, Normal speech, Normal strength at 5/5 x4 extr External genitalia: No edema, No lesions Impression: Acute respiratory failure secondary to COVID pneumonia complicated with COPD Tobacco abuse HTN UTI, urine culture positive for E. coli Chronic renal disease stage III CAD Hyperlipidemia Depression Chronic pain with neuropathy Plan: Acute respiratory failure secondary to COVID pneumonia complicated with COPD: Patient reports improvement. CRP and ferritin also show improvement. Patient now on high flow at 100%. Continue to wean off to maintain sats above 93%. Continue IV Solu-Medrol and baricitinib. Continue treatment for COPDBrovana, albuterol, Atrovent. Will continue to monitor CRP and ferritin. Continue to discuss with pulmonology. Encourage proning and lying on her side. Patient also being treated for UTI. Anticipate continued improvement over the next several days. Tobacco abuse: Continue nicotine patch. Provide education on cessation. HTN: Blood pressure still elevated. Increase metoprolol XL to 100 mg daily. Continue valsartan 40 mg twice daily. Hold if blood pressure systolic less than 110 or heart rate less than 60. We will continue to monitor and adjust medication. UTI, urine culture shows E. coli.: Urine culture reviewed. Continue Ceftin for 7 days. Acute on acute on chronic renal disease stage III: Renal function improved. Encourage oral intake. Continue with nephrology recommendations CAD: Continue Plavix 75 mg daily. Depression with anxiety: Continue Celexa 40 mg daily. Will provide clonazepam as needed. Hyperlipidemia: Continue Lovastatin 40 mg daily. Chronic pain with neuropathy. Continue Neurontin 300 mg 3 times a day as needed CODE STATUS: Full code DVT prophylaxis: Lovenox Advance care [id number] minutes: Home at discharge Time Spent Managing Pts Care (In Minutes): 55
[2021-12-09 06:10] LABS: Absolute Lymphocytes (CBC) 0.4 K/uL (0.7-4.9); Lymphocytes % 3.5 % (15.3-44.8); MPV 8.1 fL (7.6-11.3); RBC Red Blood Cell Count 3.51 M/uL (3.86-4.86)
[2021-12-09 06:36] LABS: Bilirubin Total 0.4 mg/dL (0.2-1.0); C-Reactive Protein 14.9 mg/L (<3.00); Ferritin 123.4 ng/mL (8-388); Magnesium 2.5 mg/dL (1.8-2.4); Potassium 3.8 mmol/L (3.5-5.1); Protein, Total 5.7 g/dL (6.4-8.2)
[2021-12-09 08:17] LABS: Anisocytosis 1+; Blood Morphology Comment NOTED (NOT SEEN); Platelet Estimate ADEQ; Polychromasia 1+; White Blood Cell Scan OK (OK)
[2021-12-09] MEDS: THIAMINE HCL 100 MG TABLET PO SCH (08:49)
[2021-12-09] MEDS: VITAMIN D 5,000 UNIT CAP PO SCH (08:49)
[2021-12-09] MEDS: METOPROLOL XL 50 MG TAB PO SCH (08:49)
[2021-12-09] MEDS: ZINC SULFATE 220 MG CAP PO SCH (08:50)
[2021-12-09] MEDS: NICOTINE 21 MG/PAT TD SCH (08:50)
[2021-12-09] MEDS: CLOPIDOGREL 75 MG TABLET PO SCH (08:50)
[2021-12-09] MEDS: CITALOPRAM 10 MG TABLET PO SCH (08:50)
[2021-12-09] MEDS: ENOXAPARIN 40 MG/0.4 ML SQ SCH (08:50)
[2021-12-09] MEDS: FAMOTIDINE 20 MG TAB PO SCH ×2 (08:50→20:54)
[2021-12-09] MEDS: ARFORMOTEROL TARTRATE 15 MCG/2 ML VIAL.NEB NEB SCH ×2 (08:55→20:10)
[2021-12-09] MEDS: IPRATROPIUM BROM 0.5MG/2.5ML NEB PRN (08:55)
[2021-12-09] MEDS: HYDRALAZINE HCL 20 MG/ML VIAL IV PRN ×3 (08:57→17:27)
[2021-12-09] MEDS: ACETAMINOPHEN 500 MG TAB PO PRN ×2 (08:58→17:26)
[2021-12-09] MEDS: VALSARTAN 40 MG TAB PO SCH ×2 (08:58→20:53)
[2021-12-09] MEDS: BARICITINIB 2 MG TABLET PO SCH (08:59)
[2021-12-09] MEDS: LACTOSE-REDUCED FOOD 330 ML LIQUID PO SCH ×3 (09:00→20:53)
[2021-12-09] MEDS: CEFUROXIME 250 MG TAB PO SCH ×2 (10:51→22:49)
[2021-12-09] MEDS: ATORVASTATIN 20 MG TAB PO SCH (20:53)
[2021-12-10] MEDS: METHYLPREDNISOLONE 40 MG INJ IV SCH ×3 (01:50→21:36)
[2021-12-10 04:45] LABS: Absolute Lymphocytes (CBC) 0.3 K/uL (0.7-4.9); Hematocrit 31.6 % (36.0-45.0); Lymphocytes % 2.5 % (15.3-44.8); MPV 8.1 fL (7.6-11.3); RBC Red Blood Cell Count 3.66 M/uL (3.86-4.86)
[2021-12-10 05:11] LABS: Albumin 2.1 g/dL (3.4-5.0); Bilirubin Total 0.4 mg/dL (0.2-1.0); Ferritin 142.8 ng/mL (8-388); Magnesium 2.6 mg/dL (1.8-2.4); Potassium 4.1 mmol/L (3.5-5.1); Protein, Total 5.6 g/dL (6.4-8.2)
--- NOTE | 2021-12-10 06:00 | P.PN ---
Subjective Date of Service: 12/10/21 Primary Care Provider: Dr. Calvin Chief Complaint: COVID penumonia Subjective: Other (Patient reports improvement. Still on high flow at 100%) Physical Examination - Vital Signs Temperature: 97.1 F Blood Pressure: 168/74 Pulse: 67 Respirations: 19 Pulse Ox (%): 91 - Studies Microbiology Data (last 24 hrs): 12/05/21 00:34 Blood - Blood Aerobic Blood Culture - Final No growth in 5 days. 12/05/21 00:34 Blood - Blood Anaerobic Blood Culture - Final 12/05/21 00:14 Blood - Blood Aerobic Blood Culture - Final No growth in 5 days. 12/05/21 00:14 Blood - Blood Anaerobic Blood Culture - Final No growth in 5 days. Assessment & Plan Discharge Plan: Home Plan to discharge in: 72 Hours Physician Review Additional Text: COVID: Positive Hx of Moderna vaccine in the past times 2 Initial CXR: COMPARISON: 2019 FINDINGS: Moderate bilateral pulmonary opacities. Heart is mildly to moderately enlarged. IMPRESSION: Moderate bilateral pulmonary opacities probably pneumonia CT chest: COMPARISON: None TECHNIQUE: Multiple transaxial tomograms of the chest were obtained from the lung apices through the lung bases utilizing 2 mm slice thickness at 2 mm interval reconstruction after the administration of large bolus of IV contrast for complete opacification of the pulmonary arteries. Subsequent 3-D maximum intensity projection images were generated in the coronal and sagittal plane for review. This exam was performed according to our departmental dose-optimization protocol, which includes automated exposure control, adjustment of the mA and/or kV according to patient size and/or use of iterative reconstruction technique. FINDINGS: The lungs parenchyma demonstrate interlobular septal thickening with a subpleural sparing minimal dependent atelectatic changes. Findings suggest most likely nonspecific interstitial pneumonitis and/or interstitial lung disease such as UIP could be of consideration. Calcified granuloma posterior segment right lower lobe. No masses, nodules and/or consolidations are identified. The trachea mainstem bronchus demonstrate to be normal. There is no significant pericardial or pleural effusions. The thoracic aorta demonstrate intimal calcification at the aortic throughout the thoracic aorta. The heart is normal in size. No evidence for right ventricular strain. There are minimal coronary artery calcifications There is no significant mediastinal and/or hilar lymphadenopathy. The axillary regions demonstrate to be clear. Pulmonary arteries demonstrate to be normal, no intraluminal defect are seen that would suggest pulmonary embolus. The bone windows demonstrate no significant skeletal lesions. The visualized portions of the upper abdomen demonstrate to be unremarkable. IMPRESSION: No evidence for pulmonary embolism. Diffuse interlobular septal thickening with a subpleural sparing minimal dependent atelectatic changes. Findings suggest most likely nonspecific i nterstitial pneumonitis and/or interstitial lung disease such as UIP could be of consideration. Atherosclerotic disease thoracic aorta. Follow up CXR 12/10/2021: Pending Physical exam: General: Alert, In no apparent distress, Cooperative, Obese HEENT: Atraumatic, Normocephalic, PERRLA Neck: Supple, 2+ carotid pulse no bruit, JVD not distended Respiratory: Patient on high flow at 100%. Clinically patient improved Cardiovascular: No edema, Regular rate/rhythm, Normal S1 S2 Gastrointestinal: Normal bowel sounds, Soft and benign, Non-distended Musculoskeletal: No clubbing, No swelling, No erythema Neurological: Normal gait, Normal speech, Normal strength at 5/5 x4 extr External genitalia: No edema, No lesions Impression: Acute respiratory failure secondary to COVID pneumonia complicated with COPD Tobacco abuse HTN UTI, urine culture positive for E. coli Chronic renal disease stage III CAD Hyperlipidemia Depression Chronic pain with neuropathy Plan: Acute respiratory failure secondary to COVID pneumonia complicated with COPD: Patient reports improvement. Clinically patient appears improved. Patient still remains on high flow at 100%. Continue to wean off to maintain sats above 93%. CRP and ferritin show improvement. Chest x-ray also shows some improvement. Continue IV Solu-Medrol and baricitinib. Continue treatment for COPDBrovana, albuterol, Atrovent. Will continue to monitor CRP and ferritin. Continue to discuss with pulmonology. Encourage proning and lying on her side. Patient also being treated for UTI. Anticipate continued improvement over the next several days. I will turn the service over to the hospitalist team tomorrow. I will go plan of care with him. Tobacco abuse: Continue nicotine patch. Provide education on cessation. HTN: Blood pressure still elevated. Metoprolol increased to XL 100 mg daily yesterday. Will increase valsartan to 80 mg 1 pill twice daily for better control. Continue to monitor and adjust medication. UTI, urine culture shows E. coli.: Urine culture reviewed. Continue Ceftin for 7 days. Acute on acute on chronic renal disease stage III: Renal function improved. Encourage oral intake. Continue with nephrology recommendations CAD: Continue Plavix 75 mg daily. Depression with anxiety: Continue Celexa 40 mg daily. Will provide clonazepam as needed. Hyperlipidemia: Continue Lovastatin 40 mg daily. Chronic pain with neuropathy. Continue Neurontin 300 mg 3 times a day as needed CODE STATUS: Full code DVT prophylaxis: Lovenox Advance care [id number] minutes: Home at discharge likely in the next 72 hours. Patient will likely require home oxygen at discharge. Time Spent Managing Pts Care (In Minutes): 55
[2021-12-10] MEDS: VALSARTAN 80 MG TAB PO SCH ×2 (08:07→21:36)
[2021-12-10] MEDS: ENOXAPARIN 40 MG/0.4 ML SQ SCH (08:08)
[2021-12-10] MEDS: BENZONATATE 100 MG CAP PO PRN (08:08)
[2021-12-10] MEDS: BARICITINIB 2 MG TABLET PO SCH (08:08)
[2021-12-10] MEDS: FAMOTIDINE 20 MG TAB PO SCH ×2 (08:09→21:36)
[2021-12-10] MEDS: CITALOPRAM 10 MG TABLET PO SCH (08:09)
[2021-12-10] MEDS: THIAMINE HCL 100 MG TABLET PO SCH (08:09)
[2021-12-10] MEDS: VITAMIN D 5,000 UNIT CAP PO SCH (08:10)
[2021-12-10] MEDS: NICOTINE 21 MG/PAT TD SCH (08:10)
[2021-12-10] MEDS: METOPROLOL XL 50 MG TAB PO SCH (08:11)
[2021-12-10] MEDS: CLOPIDOGREL 75 MG TABLET PO SCH (08:12)
[2021-12-10] MEDS: ZINC SULFATE 220 MG CAP PO SCH (08:13)
[2021-12-10] MEDS: LACTOSE-REDUCED FOOD 330 ML LIQUID PO SCH ×3 (08:13→21:00)
--- NOTE | 2021-12-10 08:14 | RAD REPORT ---
EXAM DESCRIPTION: Fernando Single View12/10/2021 6:30 am CLINICAL HISTORY: Chest pain COMPARISON: December 08, 2021 FINDINGS: Minimal worsening in diffuse bilateral pulmonary opacities. Heart remains enlarged IMPRESSION: Minimal worsening in the diffuse bilateral pulmonary opacities probably pneumonia
[2021-12-10] MEDS: IPRATROPIUM BROM 0.5MG/2.5ML NEB PRN (08:50)
[2021-12-10] MEDS: ARFORMOTEROL TARTRATE 15 MCG/2 ML VIAL.NEB NEB SCH (08:50)
[2021-12-10] MEDS: CEFUROXIME 250 MG TAB PO SCH ×2 (10:13→21:36)
--- NOTE | 2021-12-10 11:19 | P.PN ---
Subjective Date of Service: 12/10/21 Primary Care Provider: Dr. Calvin Chief Complaint: COVID penumonia Patient's condition is improving oxygenation is better feeling better Review of Systems General: Weakness Respiratory: Shortness of Breath Physical Examination - Vital Signs Temperature: 97.5 F Blood Pressure: 191/64 Pulse: 61 Respirations: 22 Pulse Ox (%): 96 - Physical Exam General: Alert, In no apparent distress, Oriented x3, Cooperative - Studies Microbiology Data (last 24 hrs): 12/05/21 00:34 Blood - Blood Aerobic Blood Culture - Final No growth in 5 days. 12/05/21 00:34 Blood - Blood Anaerobic Blood Culture - Final 12/05/21 00:14 Blood - Blood Aerobic Blood Culture - Final No growth in 5 days. 12/05/21 00:14 Blood - Blood Anaerobic Blood Culture - Final No growth in 5 days. Assessment & Plan - Problems (Diagnosis) (1) Acute respiratory failure due to COVID-19 Current Visit: Yes Status: Acute Plan: Respiratory failure patient is improving continue titrate O2 down to 90% DC nebulized Brovana reduce the dose of steroids labs reviewed
[2021-12-10] MEDS: HYDRALAZINE HCL 20 MG/ML VIAL IV PRN (13:34)
[2021-12-10] MEDS: ATORVASTATIN 20 MG TAB PO SCH (21:36)
[2021-12-10] MEDS: ACETAMINOPHEN 500 MG TAB PO PRN (21:37)
[2021-12-10] MEDS: LORAZEPAM 0.5 MG TABLET PO PRN (21:37)
[2021-12-11] MEDS: ACETAMINOPHEN 500 MG TAB PO PRN ×2 (03:02→20:25)
[2021-12-11 04:05] LABS: Absolute Lymphocytes (CBC) 0.3 K/uL (0.7-4.9); Hematocrit 30.4 % (36.0-45.0); Lymphocytes % 2.2 % (15.3-44.8); MPV 7.9 fL (7.6-11.3); RBC Red Blood Cell Count 3.56 M/uL (3.86-4.86)
[2021-12-11 04:25] LABS: Bilirubin Total 0.4 mg/dL (0.2-1.0); C-Reactive Protein 5.45 mg/L (<3.00); Ferritin 137.7 ng/mL (8-388); Magnesium 2.4 mg/dL (1.8-2.4); Potassium 4.4 mmol/L (3.5-5.1); Protein, Total 5.4 g/dL (6.4-8.2)
[2021-12-11] MEDS: HYDRALAZINE HCL 20 MG/ML VIAL IV PRN (04:26)
[2021-12-11] MEDS: NICOTINE 21 MG/PAT TD SCH (08:05)
[2021-12-11] MEDS: BARICITINIB 2 MG TABLET PO SCH (08:05)
[2021-12-11] MEDS: CEFUROXIME 250 MG TAB PO SCH ×2 (08:05→20:40)
[2021-12-11] MEDS: ENOXAPARIN 40 MG/0.4 ML SQ SCH (08:05)
[2021-12-11] MEDS: METHYLPREDNISOLONE 40 MG INJ IV SCH ×2 (08:05→20:26)
[2021-12-11] MEDS: THIAMINE HCL 100 MG TABLET PO SCH (08:06)
[2021-12-11] MEDS: VALSARTAN 80 MG TAB PO SCH ×2 (08:06→20:23)
[2021-12-11] MEDS: ZINC SULFATE 220 MG CAP PO SCH (08:06)
[2021-12-11] MEDS: FAMOTIDINE 20 MG TAB PO SCH ×2 (08:06→20:25)
[2021-12-11] MEDS: CLOPIDOGREL 75 MG TABLET PO SCH (08:07)
[2021-12-11] MEDS: CITALOPRAM 10 MG TABLET PO SCH (08:07)
[2021-12-11] MEDS: METOPROLOL XL 50 MG TAB PO SCH (08:07)
[2021-12-11] MEDS: VITAMIN D 5,000 UNIT CAP PO SCH (08:08)
[2021-12-11] MEDS: LACTOSE-REDUCED FOOD 330 ML LIQUID PO SCH ×3 (08:21→20:26)
--- NOTE | 2021-12-11 19:12 | P.PN ---
Subjective Date of Service: 12/11/21 Subjective: No new changes, No C/O voiced, Improving Review of Systems 10-point ROS is otherwise unremarkable Physical Examination - Vital Signs Temperature: 97.7 F Blood Pressure: 117/74 Pulse: 57 Respirations: 18 Pulse Ox (%): 94 - Physical Exam General: Alert, In no apparent distress HEENT: Atraumatic, PERRLA, EOMI Neck: Supple, JVD not distended Respiratory: Clear to auscultation bilaterally, Normal air movement Cardiovascular: Regular rate/rhythm, Normal S1 S2 Gastrointestinal: Normal bowel sounds, No tenderness Musculoskeletal: No tenderness Integumentary: No rashes Neurological: Normal speech, Normal tone, Normal affect Lymphatics: No axilla or inguinal lymphadenopathy - Studies Medications List Reviewed: Yes Assessment & Plan - Problems (Diagnosis) (1) Acute respiratory failure due to COVID-19 Current Visit: Yes Status: Acute (2) Hypertensive arteriosclerotic cardiovascular disease Current Visit: No Status: Acute - Advance Directives Does patient have a Living Will: No Does patient have a Durable POA for Healthcare: No - Code Status/Comfort Care Code Status: Full Code
[2021-12-11] MEDS: ATORVASTATIN 20 MG TAB PO SCH (20:25)
--- NOTE | 2021-12-11 21:52 | P.PN ---
Date of Service: 12/11/21 Vital Signs Temp Pulse Resp BP Pulse Ox 97.7 F 64 16 163/70 H 91 12/11/21 20:00 12/11/21 20:23 12/11/21 20:00 12/11/21 20:23 12/11/21 20:00 Medications Acetaminophen (Acetaminophen 500 Mg Tab) 500 mg PO Q6H PRN PRN Reason: Pain scale 2-4 (Mild) Last Admin: 12/11/21 20:25 Dose: 500 mg Documented by: Albuterol Sulfate (Albuterol 2.5 Mg/3 Ml Neb Tara) 2.5 mg NEB Q6HP PRN PRN Reason: SHORTNESS OF BREATH Atorvastatin Calcium (Atorvastatin 20 Mg Tab) 20 mg PO BEDTIME [facility] Last Admin: 12/11/21 20:25 Dose: 20 mg Documented by: Benzonatate (Benzonatate 100 Mg Cap) 200 mg PO TID PRN PRN Reason: COUGH Last Admin: 12/10/21 08:08 Dose: 200 mg Documented by: Cefuroxime Axetil (Cefuroxime 250 Mg Tab) 250 mg PO BID [facility]; Protocol Last Admin: 12/11/21 20:40 Dose: 250 mg Documented by: Cholecalciferol (Vitamin D 5,000 Unit Cap) 5,000 unit PO DAILY [facility] Last Admin: 12/11/21 08:08 Dose: 5,000 unit Documented by: Citalopram Hydrobromide (Citalopram 10 Mg Tablet) 40 mg PO DAILY [facility] Last Admin: 12/11/21 08:07 Dose: 40 mg Documented by: Clopidogrel Bisulfate (Clopidogrel 75 Mg Tablet) 75 mg PO DAILY [facility] Last Admin: 12/11/21 08:07 Dose: 75 mg Documented by: Enoxaparin Sodium (Enoxaparin 40 Mg/0.4 Ml) 40 mg SQ DAILY [facility] Last Admin: 12/11/21 08:05 Dose: 40 mg Documented by: Famotidine (Famotidine 20 Mg Tab) 20 mg PO BID [facility]; Protocol Last Admin: 12/11/21 20:25 Dose: 20 mg Documented by: Gabapentin (Gabapentin 300 Mg Cap) 300 mg PO TID PRN PRN Reason: Arm Pain Last Admin: 12/09/21 17:26 Dose: 300 mg Documented by: Hydralazine HCl (Hydralazine Hcl 20 Mg/Ml Vial) 10 mg IV Q6HP PRN PRN Reason: Titrate to SBP (MUST DEFINE) Last Admin: 12/11/21 04:26 Dose: 10 mg Documented by: Ipratropium Hugo (Ipratropium Brom 0.5mg/2.5ml) 0.5 mg NEB Q6HP PRN PRN Reason: SHORTNESS OF BREATH Last Admin: 12/10/21 08:50 Dose: 0.5 mg Documented by: Lorazepam (Lorazepam 0.5 Mg Tablet) 0.5 mg PO BID PRN PRN Reason: ANXIETY Last Admin: 12/10/21 21:37 Dose: 0.5 mg Documented by: Methylprednisolone Sodium Succinate (Methylprednisolone 40 Mg Inj) 40 mg IV Q12HR [facility] Last Admin: 12/11/21 20:26 Dose: 40 mg Documented by: Metoprolol Succinate (Metoprolol Xl 50 Mg Tab) 100 mg PO DAILY [facility] Last Admin: 12/11/21 08:07 Dose: 100 mg Documented by: Nicotine (Nicotine 21 Mg/Pat) 21 mg TD DAILY [facility] Last Admin: 12/11/21 08:05 Dose: 21 mg Documented by: Ondansetron HCl (Ondansetron 4 Mg/2 Ml Vial) 4 mg IV Q8H PRN PRN Reason: NAUSEA / VOMITING Sodium Chloride (Flush Normal Saline 10 Ml) 10 ml IV BID [facility] Last Admin: 12/11/21 20:26 Dose: 10 ml Documented by: Thiamine HCl (Thiamine Hcl 100 Mg Tablet) 100 mg PO DAILY [facility] Last Admin: 12/11/21 08:06 Dose: 100 mg Documented by: Valsartan (Valsartan 80 Mg Tab) 80 mg PO BID [facility] Last Admin: 12/11/21 20:23 Dose: 80 mg Documented by: Zinc Sulfate (Zinc Sulfate 220 Mg Cap) 220 mg PO DAILY [facility] Last Admin: 12/11/21 08:06 Dose: 220 mg Documented by: Microbiology Results 12/05/21 00:34 Blood - Blood Aerobic Blood Culture - Final No growth in 5 days. 12/05/21 00:34 Blood - Blood Anaerobic Blood Culture - Final 12/05/21 00:14 Blood - Blood Aerobic Blood Culture - Final No growth in 5 days. 12/05/21 00:14 Blood - Blood Anaerobic Blood Culture - Final No growth in 5 days. 12/05/21 01:02 Clean Catch Urine [place] Count - Final >100,000 CFU/ML. 12/05/21 01:02 Clean Catch Urine - Final Escherichia Coli Assessment/ Plan: Nephrology No dyspnea. TOM. No chest pain Feeling better. No acute events overnight Vitals, medications, blood work and imaging reviewed in the chart General: Oriented x3, Cooperative, Mild distress HEENT: Atraumatic Neck: Supple Respiratory: Clear to auscultation bilaterally Cardiovascular: No edema, Regular rate/rhythm Gastrointestinal: Non-distended, Tenderness Musculoskeletal: No clubbing, No contractures Integumentary: No rashes, No cyanosis Neurological: Normal speech Laboratory Data (last 24 hrs) 12/05/21 01:02: WBC 6.70, Hgb 11.4 L, Hct 34.0 L, Plt Count 221 12/05/21 00:14: PT 17.2 H, INR 1.49, APTT 29.7 12/05/21 00:14: Sodium 136, Potassium 3.2 L, BUN 23 H, Creatinine 1.20, Glucose 139 H, Total Bilirubin 0.7, AST 21, ALT 13, Alkaline Phosphatase 97, Lipase 73 Imagings Data: EXAM DESCRIPTION: CT - Chest For Pe Angio - 12/05/2021 6:20 am CLINICAL HISTORY: 70 years, Female, DYSPNEA COMPARISON: None TECHNIQUE: Multiple transaxial tomograms of the chest were obtained from the lung apices through the lung bases utilizing 2 mm slice thickness at 2 mm interval reconstruction after the administration of large bolus of IV contrast for complete opacification of the pulmonary arteries. Subsequent 3-D maximum intensity projection images were generated in the coronal and sagittal plane for review. This exam was performed according to our departmental dose-optimization protocol, which includes automated exposure control, adjustment of the mA and/or kV according to patient size and/or use of iterative reconstruction technique. FINDINGS: The lungs parenchyma demonstrate interlobular septal thickening with a subpleural sparing minimal dependent atelectatic changes. Findings suggest most likely nonspecific interstitial pneumonitis and/or interstitial lung disease such as UIP could be of consideration. Calcified granuloma posterior segment right lower lobe. No masses, nodules and/or consolidations are identified. The trachea mainstem bronchus demonstrate to be normal. There is no significant pericardial or pleural effusions. The thoracic aorta demonstrate intimal calcification at the aortic throughout the thoracic aorta. The heart is normal in size. No evidence for right ventricular strain. There are minimal coronary artery calcifications There is no significant mediastinal and/or hilar lymphadenopathy. The axillary regions demonstrate to be clear. Pulmonary arteries demonstrate to be normal, no intraluminal defect are seen that would suggest pulmonary embolus. The bone windows demonstrate no significant skeletal lesions. The visualized portions of the upper abdomen demonstrate to be unremarkable. IMPRESSION: No evidence for pulmonary embolism. Diffuse interlobular septal thickening with a subpleural sparing minimal dependent atelectatic changes. Findings suggest most likely nonspecific interstitial pneumonitis and/or interstitial lung disease such as UIP could be of consideration. Atherosclerotic disease thoracic aorta. EXAM DESCRIPTION: GIDEONChest Single View12/05/2021 8:33 am CLINICAL HISTORY: Chest pain COMPARISON: 2019 FINDINGS: Moderate bilateral pulmonary opacities. Heart is mildly to moderately enlarged. IMPRESSION: Moderate bilateral pulmonary opacities probably pneumonia Conclusions/Impression: CKD III with Proteinuria -No NSAIDs Hypokalemia -Replete potassium prn HTN with CKD -Hydralazine prn -Continue Valsartan BID DM II with CKD -Consider RISS Severe malnutrition -Continue Ensure Anemia in chronic illness -Monitor H&H Acute cystitis -Continue Ceftin COVID-19 -Continue steroids -Continue Rocephin -Wean Oxygen as tolerated Case reviewed with Dr. Ward
[2021-12-11] MEDS: LORAZEPAM 0.5 MG TABLET PO PRN (23:52)
[2021-12-12] MEDS: HYDRALAZINE HCL 20 MG/ML VIAL IV PRN (03:49)
[2021-12-12 06:23] LABS: Absolute Lymphocytes (CBC) 0.3 K/uL (0.7-4.9); Hematocrit 30.9 % (36.0-45.0); Lymphocytes % 2.1 % (15.3-44.8); RBC Red Blood Cell Count 3.61 M/uL (3.86-4.86)
[2021-12-12 06:31] LABS: Magnesium 2.6 mg/dL (1.8-2.4); Potassium 4.5 mmol/L (3.5-5.1)
[2021-12-12] MEDS: ZINC SULFATE 220 MG CAP PO SCH (08:35)
[2021-12-12] MEDS: CITALOPRAM 10 MG TABLET PO SCH (08:36)
[2021-12-12] MEDS: METOPROLOL XL 50 MG TAB PO SCH (08:36)
[2021-12-12] MEDS: THIAMINE HCL 100 MG TABLET PO SCH (08:36)
[2021-12-12] MEDS: ENOXAPARIN 40 MG/0.4 ML SQ SCH (08:37)
[2021-12-12] MEDS: VALSARTAN 80 MG TAB PO SCH ×2 (08:37→20:38)
[2021-12-12] MEDS: CEFUROXIME 250 MG TAB PO SCH ×2 (08:37→20:37)
[2021-12-12] MEDS: FAMOTIDINE 20 MG TAB PO SCH ×2 (08:37→20:37)
[2021-12-12] MEDS: VITAMIN D 5,000 UNIT CAP PO SCH (08:38)
[2021-12-12] MEDS: BARICITINIB 2 MG TABLET PO SCH (08:38)
[2021-12-12] MEDS: CLOPIDOGREL 75 MG TABLET PO SCH (08:38)
[2021-12-12] MEDS: NICOTINE 21 MG/PAT TD SCH (08:39)
[2021-12-12] MEDS: METHYLPREDNISOLONE 40 MG INJ IV SCH ×2 (08:39→20:39)
[2021-12-12] MEDS: LACTOSE-REDUCED FOOD 330 ML LIQUID PO SCH ×3 (08:40→20:38)
--- NOTE | 2021-12-12 20:23 | P.PN ---
Date of Service: 12/12/21 Vital Signs Temp Pulse Resp BP Pulse Ox 97.6 F 61 16 160/73 H 90 L 12/12/21 16:00 12/12/21 16:00 12/12/21 16:00 12/12/21 16:00 12/12/21 16:00 Medications Acetaminophen (Acetaminophen 500 Mg Tab) 500 mg PO Q6H PRN PRN Reason: Pain scale 2-4 (Mild) Last Admin: 12/11/21 20:25 Dose: 500 mg Documented by: Albuterol Sulfate (Albuterol 2.5 Mg/3 Ml Neb [place]) 2.5 mg NEB Q6HP PRN PRN Reason: SHORTNESS OF BREATH Atorvastatin Calcium (Atorvastatin 20 Mg Tab) 20 mg PO BEDTIME [facility] Last Admin: 12/11/21 20:25 Dose: 20 mg Documented by: Benzonatate (Benzonatate 100 Mg Cap) 200 mg PO TID PRN PRN Reason: COUGH Last Admin: 12/10/21 08:08 Dose: 200 mg Documented by: Cefuroxime Axetil (Cefuroxime 250 Mg Tab) 250 mg PO BID [facility]; Protocol Last Admin: 12/12/21 08:37 Dose: 250 mg Documented by: Cholecalciferol (Vitamin D 5,000 Unit Cap) 5,000 unit PO DAILY [facility] Last Admin: 12/12/21 08:38 Dose: 5,000 unit Documented by: Citalopram Hydrobromide (Citalopram 10 Mg Tablet) 40 mg PO DAILY [facility] Last Admin: 12/12/21 08:36 Dose: 40 mg Documented by: Clopidogrel Bisulfate (Clopidogrel 75 Mg Tablet) 75 mg PO DAILY [facility] Last Admin: 12/12/21 08:38 Dose: 75 mg Documented by: Enoxaparin Sodium (Enoxaparin 40 Mg/0.4 Ml) 40 mg SQ DAILY [facility] Last Admin: 12/12/21 08:37 Dose: 40 mg Documented by: Famotidine (Famotidine 20 Mg Tab) 20 mg PO BID [facility]; Protocol Last Admin: 12/12/21 08:37 Dose: 20 mg Documented by: Gabapentin (Gabapentin 300 Mg Cap) 300 mg PO TID PRN PRN Reason: Arm Pain Last Admin: 12/09/21 17:26 Dose: 300 mg Documented by: Hydralazine HCl (Hydralazine Hcl 20 Mg/Ml Vial) 10 mg IV Q6HP PRN PRN Reason: Titrate to SBP (MUST DEFINE) Last Admin: 12/12/21 03:49 Dose: 10 mg Documented by: Ipratropium [place] (Ipratropium Brom 0.5mg/2.5ml) 0.5 mg NEB Q6HP PRN PRN Reason: SHORTNESS OF BREATH Last Admin: 12/10/21 08:50 Dose: 0.5 mg Documented by: Lorazepam (Lorazepam 0.5 Mg Tablet) 0.5 mg PO BID PRN PRN Reason: ANXIETY Last Admin: 12/11/21 23:52 Dose: 0.5 mg Documented by: Methylprednisolone Sodium Succinate (Methylprednisolone 40 Mg Inj) 40 mg IV Q12HR [facility] Last Admin: 12/12/21 08:39 Dose: 40 mg Documented by: Metoprolol Succinate (Metoprolol Xl 50 Mg Tab) 100 mg PO DAILY [facility] Last Admin: 12/12/21 08:36 Dose: 100 mg Documented by: Nicotine (Nicotine 21 Mg/Pat) 21 mg TD DAILY [facility] Last Admin: 12/12/21 08:39 Dose: 21 mg Documented by: Ondansetron HCl (Ondansetron 4 Mg/2 Ml Vial) 4 mg IV Q8H PRN PRN Reason: NAUSEA / VOMITING Sodium Chloride (Flush Normal Saline 10 Ml) 10 ml IV BID [facility] Last Admin: 12/12/21 08:40 Dose: 10 ml Documented by: Thiamine HCl (Thiamine Hcl 100 Mg Tablet) 100 mg PO DAILY [facility] Last Admin: 12/12/21 08:36 Dose: 100 mg Documented by: Valsartan (Valsartan 80 Mg Tab) 80 mg PO BID [facility] Last Admin: 12/12/21 08:37 Dose: 80 mg Documented by: Zinc Sulfate (Zinc Sulfate 220 Mg Cap) 220 mg PO DAILY [facility] Last Admin: 12/12/21 08:35 Dose: 220 mg Documented by: Microbiology Results 12/05/21 00:34 Blood - Blood Aerobic Blood Culture - Final No growth in 5 days. 12/05/21 00:34 Blood - Blood Anaerobic Blood Culture - Final 12/05/21 00:14 Blood - Blood Aerobic Blood Culture - Final No growth in 5 days. 12/05/21 00:14 Blood - Blood Anaerobic Blood Culture - Final No growth in 5 days. 12/05/21 01:02 Clean Catch Urine [place] Count - Final >100,000 CFU/ML. 12/05/21 01:02 Clean Catch Urine - Final Escherichia Coli Assessment/ Plan: Nephrology No dyspnea. TOM. No chest pain Feeling better. +BM No acute events overnight Vitals, medications, blood work and imaging reviewed in the chart General: Oriented x3, Cooperative, Mild distress HEENT: Atraumatic Neck: Supple Respiratory: Clear to auscultation bilaterally Cardiovascular: No edema, Regular rate/rhythm Gastrointestinal: Non-distended, Tenderness Musculoskeletal: No clubbing, No contractures Integumentary: No rashes, No cyanosis Neurological: Normal speech Laboratory Data (last 24 hrs) 12/05/21 01:02: WBC 6.70, Hgb 11.4 L, Hct 34.0 L, Plt Count 221 12/05/21 00:14: PT 17.2 H, INR 1.49, APTT 29.7 12/05/21 00:14: Sodium 136, Potassium 3.2 L, BUN 23 H, Creatinine 1.20, Glucose 139 H, Total Bilirubin 0.7, AST 21, ALT 13, Alkaline Phosphatase 97, Lipase 73 Imagings Data: EXAM DESCRIPTION: CT - Chest For Pe Angio - 12/05/2021 6:20 am CLINICAL HISTORY: 70 years, Female, DYSPNEA COMPARISON: None TECHNIQUE: Multiple transaxial tomograms of the chest were obtained from the lung apices through the lung bases utilizing 2 mm slice thickness at 2 mm interval reconstruction after the administration of large bolus of IV contrast for complete opacification of the pulmonary arteries. Subsequent 3-D maximum intensity projection images were generated in the coronal and sagittal plane for review. This exam was performed according to our departmental dose-optimization protocol, which includes automated exposure control, adjustment of the mA and/or kV according to patient size and/or use of iterative reconstruction technique. FINDINGS: The lungs parenchyma demonstrate interlobular septal thickening with a subpleural sparing minimal dependent atelectatic changes. Findings suggest most likely nonspecific interstitial pneumonitis and/or interstitial lung disease such as UIP could be of consideration. Calcified granuloma posterior segment right lower lobe. No masses, nodules and/or consolidations are identified. The trachea mainstem bronchus demonstrate to be normal. There is no significant pericardial or pleural effusions. The thoracic aorta demonstrate intimal calcification at the aortic throughout the thoracic aorta. The heart is normal in size. No evidence for right ventricular strain. There are minimal coronary artery calcifications There is no significant mediastinal and/or hilar lymphadenopathy. The axillary regions demonstrate to be clear. Pulmonary arteries demonstrate to be normal, no intraluminal defect are seen ryanne t would suggest pulmonary embolus. The bone windows demonstrate no significant skeletal lesions. The visualized portions of the upper abdomen demonstrate to be unremarkable. IMPRESSION: No evidence for pulmonary embolism. Diffuse interlobular septal thickening with a subpleural sparing minimal dependent atelectatic changes. Findings suggest most likely nonspecific interstitial pneumonitis and/or interstitial lung disease such as UIP could be of consideration. Atherosclerotic disease thoracic aorta. EXAM DESCRIPTION: [facility] Single View12/05/2021 8:33 am CLINICAL HISTORY: Chest pain COMPARISON: 2019 FINDINGS: Moderate bilateral pulmonary opacities. Heart is mildly to moderately enlarged. IMPRESSION: Moderate bilateral pulmonary opacities probably pneumonia Conclusions/Impression: CKD III with Proteinuria -No NSAIDs Hypokalemia -Replete potassium prn HTN with CKD -Hydralazine prn -Continue Valsartan BID DM II with CKD -Consider RISS Severe malnutrition -Continue Ensure Anemia in chronic illness -Monitor H&H Acute cystitis -Continue Ceftin COVID-19 -Continue steroids -Continue Rocephin -Wean Oxygen as tolerated
[2021-12-12] MEDS: ATORVASTATIN 20 MG TAB PO SCH (20:38)
[2021-12-12] MEDS: ACETAMINOPHEN 500 MG TAB PO PRN (20:43)
[2021-12-12] MEDS: LORAZEPAM 0.5 MG TABLET PO PRN (20:43)
[2021-12-13] MEDS: LACTOSE-REDUCED FOOD 330 ML LIQUID PO SCH ×3 (09:00→20:46)
[2021-12-13] MEDS: NICOTINE 21 MG/PAT TD SCH (09:43)
[2021-12-13] MEDS: CLOPIDOGREL 75 MG TABLET PO SCH (09:43)
[2021-12-13] MEDS: METOPROLOL XL 50 MG TAB PO SCH (09:43)
[2021-12-13] MEDS: VITAMIN D 5,000 UNIT CAP PO SCH (09:46)
[2021-12-13] MEDS: CITALOPRAM 10 MG TABLET PO SCH (09:46)
[2021-12-13] MEDS: FAMOTIDINE 20 MG TAB PO SCH ×2 (09:46→20:45)
[2021-12-13] MEDS: ZINC SULFATE 220 MG CAP PO SCH (09:47)
[2021-12-13] MEDS: THIAMINE HCL 100 MG TABLET PO SCH (09:47)
[2021-12-13] MEDS: VALSARTAN 80 MG TAB PO SCH ×2 (09:48→20:46)
[2021-12-13] MEDS: ENOXAPARIN 40 MG/0.4 ML SQ SCH (09:49)
[2021-12-13] MEDS: METHYLPREDNISOLONE 40 MG INJ IV SCH ×2 (09:49→20:46)
[2021-12-13] MEDS: BARICITINIB 2 MG TABLET PO SCH (09:53)
[2021-12-13] MEDS: CEFUROXIME 250 MG TAB PO SCH ×2 (09:53→20:45)
[2021-12-13] MEDS: ACETAMINOPHEN 500 MG TAB PO PRN ×2 (11:33→20:46)
[2021-12-13] MEDS: HYDRALAZINE HCL 20 MG/ML VIAL IV PRN (14:46)
--- NOTE | 2021-12-13 20:43 | P.PN ---
Date of Service: 12/13/21 Vital Signs Temp Pulse Resp BP Pulse Ox 96.9 F 64 19 136/73 94 12/13/21 20:00 12/13/21 20:00 12/13/21 20:00 12/13/21 20:00 12/13/21 20:00 Medications Acetaminophen (Acetaminophen 500 Mg Tab) 500 mg PO Q6H PRN PRN Reason: Pain scale 2-4 (Mild) Last Admin: 12/13/21 11:33 Dose: 500 mg Documented by: Albuterol Sulfate (Albuterol 2.5 Mg/3 Ml Neb [place]ara) 2.5 mg NEB Q6HP PRN PRN Reason: SHORTNESS OF BREATH Atorvastatin Calcium (Atorvastatin 20 Mg Tab) 20 mg PO BEDTIME [facility] Last Admin: 12/12/21 20:38 Dose: 20 mg Documented by: Benzonatate (Benzonatate 100 Mg Cap) 200 mg PO TID PRN PRN Reason: COUGH Last Admin: 12/10/21 08:08 Dose: 200 mg Documented by: Cefuroxime Axetil (Cefuroxime 250 Mg Tab) 250 mg PO BID [facility]; Protocol Last Admin: 12/13/21 09:53 Dose: 250 mg Documented by: Cholecalciferol (Vitamin D 5,000 Unit Cap) 5,000 unit PO DAILY [facility] Last Admin: 12/13/21 09:46 Dose: 5,000 unit Documented by: Citalopram Hydrobromide (Citalopram 10 Mg Tablet) 40 mg PO DAILY [facility] Last Admin: 12/13/21 09:46 Dose: 40 mg Documented by: Clopidogrel Bisulfate (Clopidogrel 75 Mg Tablet) 75 mg PO DAILY [facility] Last Admin: 12/13/21 09:43 Dose: 75 mg Documented by: Enoxaparin Sodium (Enoxaparin 40 Mg/0.4 Ml) 40 mg SQ DAILY [facility] Last Admin: 12/13/21 09:49 Dose: 40 mg Documented by: Famotidine (Famotidine 20 Mg Tab) 20 mg PO BID [facility]; Protocol Last Admin: 12/13/21 09:46 Dose: 20 mg Documented by: Gabapentin (Gabapentin 300 Mg Cap) 300 mg PO TID PRN PRN Reason: Arm Pain Last Admin: 12/09/21 17:26 Dose: 300 mg Documented by: Hydralazine HCl (Hydralazine Hcl 20 Mg/Ml Vial) 10 mg IV Q6HP PRN PRN Reason: Titrate to SBP (MUST DEFINE) Last Admin: 12/13/21 14:46 Dose: 10 mg Documented by: Ipratropium [place] (Ipratropium Brom 0.5mg/2.5ml) 0.5 mg NEB Q6HP PRN PRN Reason: SHORTNESS OF BREATH Last Admin: 12/10/21 08:50 Dose: 0.5 mg Documented by: Lorazepam (Lorazepam 0.5 Mg Tablet) 0.5 mg PO BID PRN PRN Reason: ANXIETY Last Admin: 12/12/21 20:43 Dose: 0.5 mg Documented by: Methylprednisolone Sodium Succinate (Methylprednisolone 40 Mg Inj) 40 mg IV Q12HR [facility] Last Admin: 12/13/21 09:49 Dose: 40 mg Documented by: Metoprolol Succinate (Metoprolol Xl 50 Mg Tab) 100 mg PO DAILY [facility] Last Admin: 12/13/21 09:43 Dose: 100 mg Documented by: Nicotine (Nicotine 21 Mg/Pat) 21 mg TD DAILY [facility] Last Admin: 12/13/21 09:43 Dose: 21 mg Documented by: Ondansetron HCl (Ondansetron 4 Mg/2 Ml Vial) 4 mg IV Q8H PRN PRN Reason: NAUSEA / VOMITING Sodium Chloride (Flush Normal Saline 10 Ml) 10 ml IV BID [facility] Last Admin: 12/13/21 09:00 Dose: Not Given Documented by: Thiamine HCl (Thiamine Hcl 100 Mg Tablet) 100 mg PO DAILY [facility] Last Admin: 12/13/21 09:47 Dose: 100 mg Documented by: Valsartan (Valsartan 80 Mg Tab) 80 mg PO BID [facility] Last Admin: 12/13/21 09:48 Dose: 80 mg Documented by: Zinc Sulfate (Zinc Sulfate 220 Mg Cap) 220 mg PO DAILY [facility] Last Admin: 12/13/21 09:47 Dose: 220 mg Documented by: Microbiology Results 12/05/21 00:34 Blood - Blood Aerobic Blood Culture - Final No growth in 5 days. 12/05/21 00:34 Blood - Blood Anaerobic Blood Culture - Final 12/05/21 00:14 Blood - Blood Aerobic Blood Culture - Final No growth in 5 days. 12/05/21 00:14 Blood - Blood Anaerobic Blood Culture - Final No growth in 5 days. 12/05/21 01:02 Clean Catch Urine [place] Count - Final >100,000 CFU/ML. 12/05/21 01:02 Clean Catch Urine - Final Escherichia Coli Assessment/ Plan: Nephrology No dyspnea. TOM. No chest pain Feeling better. No acute events overnight Vitals, medications, blood work and imaging reviewed in the chart General: Oriented x3, Cooperative, Mild distress HEENT: Atraumatic Neck: Supple Respiratory: Clear to auscultation bilaterally Cardiovascular: No edema, Regular rate/rhythm Gastrointestinal: Non-distended, Tenderness Musculoskeletal: No clubbing, No contractures Integumentary: No rashes, No cyanosis Neurological: Normal speech Laboratory Data (last 24 hrs) 12/05/21 01:02: WBC 6.70, Hgb 11.4 L, Hct 34.0 L, Plt Count 221 12/05/21 00:14: PT 17.2 H, INR 1.49, APTT 29.7 12/05/21 00:14: Sodium 136, Potassium 3.2 L, BUN 23 H, Creatinine 1.20, Glucose 139 H, Total Bilirubin 0.7, AST 21, ALT 13, Alkaline Phosphatase 97, Lipase 73 Imagings Data: EXAM DESCRIPTION: CT - Chest For Pe Angio - 12/05/2021 6:20 am CLINICAL HISTORY: 70 years, Female, DYSPNEA COMPARISON: None TECHNIQUE: Multiple transaxial tomograms of the chest were obtained from the lung apices through the lung bases utilizing 2 mm slice thickness at 2 mm interval reconstruction after the administration of large bolus of IV contrast for complete opacification of the pulmonary arteries. Subsequent 3-D maximum intensity projection images were generated in the coronal and sagittal plane for review. This exam was performed according to our departmental dose-optimization protocol, which includes automated exposure control, adjustment of the mA and/or kV according to patient size and/or use of iterative reconstruction technique. FINDINGS: The lungs parenchyma demonstrate interlobular septal thickening with a subpleural sparing minimal dependent atelectatic changes. Findings suggest most likely nonspecific interstitial pneumonitis and/or interstitial lung disease such as UIP could be of consideration. Calcified granuloma posterior segment right lower lobe. No masses, nodules and/or consolidations are identified. The trachea mainstem bronchus demonstrate to be normal. There is no significant pericardial or pleural effusions. The thoracic aorta demonstrate intimal calcification at the aortic throughout the thoracic aorta. The heart is normal in size. No evidence for right ventricular strain. There are minimal coronary artery calcifications There is no significant mediastinal and/or hilar lymphadenopathy. The axillary regions demonstrate to be clear. Pulmonary arteries demonstrate to be normal, no intraluminal defect are seen that would suggest pulmonary embolus. The bone windows demonstrate no significant skeletal lesions. The visualized portions of the upper abdomen demonstrate to be unremarkable. IMPRESSION: No evidence for pulmonary embolism. Diffuse interlobular septal thickening with a subpleural sparing minimal dependent atelectatic changes. Findings suggest most likely nonspecific interstitial pneumonitis and/or interstitial lung disease such as UIP could be of consideration. Atherosclerotic disease thoracic aorta. [facility] CLINICAL HISTORY: Chest pain COMPARISON: 2019 FINDINGS: Moderate bilateral pulmonary opacities. Heart is mildly to moderately enlarged. IMPRESSION: Moderate bilateral pulmonary opacities probably pneumonia Conclusions/Impression: CKD III with Proteinuria -No NSAIDs Hypokalemia -Replete potassium prn HTN with CKD -Hydralazine prn -Continue Metoprolol -Continue Valsartan BID DM II with CKD -Consider RISS Severe malnutrition -Continue Ensure Anemia in chronic illness -Monitor H&H Acute cystitis -Continue Ceftin COVID-19 -Continue steroids -Continue Rocephin -Wean Oxygen as tolerated
[2021-12-13] MEDS: LORAZEPAM 0.5 MG TABLET PO PRN (20:45)
[2021-12-13] MEDS: ATORVASTATIN 20 MG TAB PO SCH (20:47)
[2021-12-13] MEDS: GABAPENTIN 300 MG CAP PO PRN (23:52)
[2021-12-14] MEDS: LACTOSE-REDUCED FOOD 330 ML LIQUID PO SCH ×3 (09:00→20:38)
[2021-12-14] MEDS: CLOPIDOGREL 75 MG TABLET PO SCH (09:12)
[2021-12-14] MEDS: METHYLPREDNISOLONE 40 MG INJ IV SCH ×2 (09:12→20:38)
[2021-12-14] MEDS: ENOXAPARIN 40 MG/0.4 ML SQ SCH (09:12)
[2021-12-14] MEDS: FAMOTIDINE 20 MG TAB PO SCH ×2 (09:13→20:37)
[2021-12-14] MEDS: CITALOPRAM 10 MG TABLET PO SCH (09:13)
[2021-12-14] MEDS: METOPROLOL XL 50 MG TAB PO SCH (09:14)
[2021-12-14] MEDS: NICOTINE 21 MG/PAT TD SCH (09:14)
[2021-12-14] MEDS: ZINC SULFATE 220 MG CAP PO SCH (09:14)
[2021-12-14] MEDS: THIAMINE HCL 100 MG TABLET PO SCH (09:14)
[2021-12-14] MEDS: VITAMIN D 5,000 UNIT CAP PO SCH (09:14)
[2021-12-14] MEDS: BARICITINIB 2 MG TABLET PO SCH (09:20)
[2021-12-14] MEDS: CEFUROXIME 250 MG TAB PO SCH ×2 (09:20→20:36)
[2021-12-14] MEDS: VALSARTAN 80 MG TAB PO SCH ×2 (10:15→20:37)
[2021-12-14] MEDS: ACETAMINOPHEN 500 MG TAB PO PRN ×2 (15:38→20:37)
[2021-12-14] MEDS: LORAZEPAM 0.5 MG TABLET PO PRN (20:37)
[2021-12-14] MEDS: ATORVASTATIN 20 MG TAB PO SCH (20:38)
--- NOTE | 2021-12-14 20:47 | P.PN ---
Date of Service: 12/14/21 Vital Signs Temp Pulse Resp BP Pulse Ox 97.1 F 59 20 159/77 H 90 L 12/14/21 16:00 12/14/21 20:37 12/14/21 16:00 12/14/21 20:37 12/14/21 16:00 Medications Acetaminophen (Acetaminophen 500 Mg Tab) 500 mg PO Q6H PRN PRN Reason: Pain scale 2-4 (Mild) Last Admin: 12/14/21 20:37 Dose: 500 mg Documented by: Albuterol Sulfate (Albuterol 2.5 Mg/3 Ml Neb Tara) 2.5 mg NEB Q6HP PRN PRN Reason: SHORTNESS OF BREATH Atorvastatin Calcium (Atorvastatin 20 Mg Tab) 20 mg PO BEDTIME [facility] Last Admin: 12/14/21 20:38 Dose: 20 mg Documented by: Benzonatate (Benzonatate 100 Mg Cap) 200 mg PO TID PRN PRN Reason: COUGH Last Admin: 12/10/21 08:08 Dose: 200 mg Documented by: Cefuroxime Axetil (Cefuroxime 250 Mg Tab) 250 mg PO BID [facility]; Protocol Last Admin: 12/14/21 20:36 Dose: 250 mg Documented by: Cholecalciferol (Vitamin D 5,000 Unit Cap) 5,000 unit PO DAILY [facility] Last Admin: 12/14/21 09:14 Dose: 5,000 unit Documented by: Citalopram Hydrobromide (Citalopram 10 Mg Tablet) 40 mg PO DAILY [facility] Last Admin: 12/14/21 09:13 Dose: 40 mg Documented by: Clopidogrel Bisulfate (Clopidogrel 75 Mg Tablet) 75 mg PO DAILY [facility] Last Admin: 12/14/21 09:12 Dose: 75 mg Documented by: Enoxaparin Sodium (Enoxaparin 40 Mg/0.4 Ml) 40 mg SQ DAILY [facility] Last Admin: 12/14/21 09:12 Dose: 40 mg Documented by: Famotidine (Famotidine 20 Mg Tab) 20 mg PO BID [facility]; Protocol Last Admin: 12/14/21 20:37 Dose: 20 mg Documented by: Gabapentin (Gabapentin 300 Mg Cap) 300 mg PO TID PRN PRN Reason: Arm Pain Last Admin: 12/13/21 23:52 Dose: 300 mg Documented by: Hydralazine HCl (Hydralazine Hcl 20 Mg/Ml Vial) 10 mg IV Q6HP PRN PRN Reason: Titrate to SBP (MUST DEFINE) Last Admin: 12/13/21 14:46 Dose: 10 mg Documented by: Ipratropium [place] (Ipratropium Brom 0.5mg/2.5ml) 0.5 mg NEB Q6HP PRN PRN Reason: SHORTNESS OF BREATH Last Admin: 12/10/21 08:50 Dose: 0.5 mg Documented by: Lorazepam (Lorazepam 0.5 Mg Tablet) 0.5 mg PO BID PRN PRN Reason: ANXIETY Last Admin: 12/14/21 20:37 Dose: 0.5 mg Documented by: Methylprednisolone Sodium Succinate (Methylprednisolone 40 Mg Inj) 40 mg IV Q12HR [facility] Last Admin: 12/14/21 20:38 Dose: 40 mg Documented by: Metoprolol Succinate (Metoprolol Xl 50 Mg Tab) 100 mg PO DAILY [facility] Last Admin: 12/14/21 09:14 Dose: 100 mg Documented by: Nicotine (Nicotine 21 Mg/Pat) 21 mg TD DAILY [facility] Last Admin: 12/14/21 09:14 Dose: 21 mg Documented by: Ondansetron HCl (Ondansetron 4 Mg/2 Ml Vial) 4 mg IV Q8H PRN PRN Reason: NAUSEA / VOMITING Sodium Chloride (Flush Normal Saline 10 Ml) 10 ml IV BID [facility] Last Admin: 12/14/21 20:38 Dose: 10 ml Documented by: Thiamine HCl (Thiamine Hcl 100 Mg Tablet) 100 mg PO DAILY [facility] Last Admin: 12/14/21 09:14 Dose: 100 mg Documented by: Valsartan (Valsartan 80 Mg Tab) 80 mg PO BID [facility] Last Admin: 12/14/21 20:37 Dose: 80 mg Documented by: Zinc Sulfate (Zinc Sulfate 220 Mg Cap) 220 mg PO DAILY [facility] Last Admin: 12/14/21 09:14 Dose: 220 mg Documented by: Microbiology Results 12/05/21 00:34 Blood - Blood Aerobic Blood Culture - Final No growth in 5 days. 12/05/21 00:34 Blood - Blood Anaerobic Blood Culture - Final 12/05/21 00:14 Blood - Blood Aerobic Blood Culture - Final No growth in 5 days. 12/05/21 00:14 Blood - Blood Anaerobic Blood Culture - Final No growth in 5 days. 12/05/21 01:02 Clean Catch Urine [place] Count - Final >100,000 CFU/ML. 12/05/21 01:02 Clean Catch Urine - Final Escherichia Coli Assessment/ Plan: Nephrology No dyspnea. TOM. No chest pain Feeling better. No acute events overnight Vitals, medications, blood work and imaging reviewed in the chart General: Oriented x3, Cooperative, Mild distress HEENT: Atraumatic Neck: Supple Respiratory: Clear to auscultation bilaterally Cardiovascular: No edema, Regular rate/rhythm Gastrointestinal: Non-distended, Tenderness Musculoskeletal: No clubbing, No contractures Integumentary: No rashes, No cyanosis Neurological: Normal speech Laboratory Data (last 24 hrs) 12/05/21 01:02: WBC 6.70, Hgb 11.4 L, Hct 34.0 L, Plt Count 221 12/05/21 00:14: PT 17.2 H, INR 1.49, APTT 29.7 12/05/21 00:14: Sodium 136, Potassium 3.2 L, BUN 23 H, Creatinine 1.20, Glucose 139 H, Total Bilirubin 0.7, AST 21, ALT 13, Alkaline Phosphatase 97, Lipase 73 Imagings Data: EXAM DESCRIPTION: CT - Chest For Pe Angio - 12/05/2021 6:20 am CLINICAL HISTORY: 70 years, Female, DYSPNEA COMPARISON: None TECHNIQUE: Multiple transaxial tomograms of the chest were obtained from the lung apices through the lung bases utilizing 2 mm slice thickness at 2 mm interval reconstruction after the administration of large bolus of IV contrast for complete opacification of the pulmonary arteries. Subsequent 3-D maximum intensity projection images were generated in the coronal and sagittal plane for review. This exam was performed according to our departmental dose-optimization protocol, which includes automated exposure control, adjustment of the mA and/or kV according to patient size and/or use of iterative reconstruction technique. FINDINGS: The lungs parenchyma demonstrate interlobular septal thickening with a subpleural sparing minimal dependent atelectatic changes. Findings suggest most likely nonspecific interstitial pneumonitis and/or interstitial lung disease such as UIP could be of consideration. Calcified granuloma posterior segment right lower lobe. No masses, nodules and/or consolidations are identified. The trachea mainstem bronchus demonstrate to be normal. There is no significant pericardial or pleural effusions. The thoracic aorta demonstrate intimal calcification at the aortic throughout the thoracic aorta. The heart is normal in size. No evidence for right ventricular strain. There are minimal coronary artery calcifications There is no significant mediastinal and/or hilar lymphadenopathy. The axillary regions demonstrate to be clear. Pulmonary arteries demonstrate to be normal, no intraluminal defect are seen that would suggest pulmonary embolus. The bone windows demonstrate no significant skeletal lesions. The visualized portions of the upper abdomen demonstrate to be unremarkable. IMPRESSION: No evidence for pulmonary embolism. Diffuse interlobular septal thickening with a subpleural sparing minimal dependent atelectatic changes. Findings suggest most likely nonspecific interstitial pneumonitis and/or interstitial lung disease such as UIP could be of consideration. Atherosclerotic disease thoracic aorta. EXAM DESCRIPTION: [facility] Single View12/05/2021 8:33 am CLINICAL HISTORY: Chest pain COMPARISON: 2019 FINDINGS: Moderate bilateral pulmonary opacities. Heart is mildly to moderately enlarged. IMPRESSION: Moderate bilateral pulmonary opacities probably pneumonia Conclusions/Impression: CKD III with Proteinuria -No NSAIDs Hypokalemia -Replete potassium prn HTN with CKD -Hydralazine prn -Continue Metoprolol -Continue Valsartan BID DM II with CKD -Consider RISS Severe malnutrition -Continue Ensure Anemia in chronic illness -Monitor H&H Acute cystitis -Continue Ceftin COVID-19 -Continue steroids -Continue Rocephin -Wean Oxygen as tolerated Case reviewed with Dr. Ward
[2021-12-15 05:56] LABS: Absolute Lymphocytes (CBC) 0.4 K/uL (0.7-4.9); Hematocrit 32.6 % (36.0-45.0); Lymphocytes % 2.4 % (15.3-44.8); MPV 8.2 fL (7.6-11.3); RBC Red Blood Cell Count 3.79 M/uL (3.86-4.86)
--- NOTE | 2021-12-15 07:29 | P.PN ---
Date of Service: 12/12/21 Subjective Patient is more awake and alert today. She is currently on BiPAP and we are trying to wean off of BiPAP and to wall oxygen. Review of Systems 10-point ROS is otherwise unremarkable Physical Examination - Vital Signs reviewed - Physical Exam General: Alert, In no apparent distress; BiPAP mask in place Respiratory: Clear to auscultation bilaterally, Normal air movement Cardiovascular: Regular rate/rhythm, Normal S1 S2 Gastrointestinal: Normal bowel sounds, No tenderness Neurological: Normal speech, Normal tone, Normal affect Assessment & Plan - Problems (Diagnosis) (1) Acute respiratory failure due to COVID-19 Current Visit: Yes Status: Acute (2) Hypertensive arteriosclerotic cardiovascular disease Current Visit: No Status: Acute - Advance Directives Does patient have a Living Will: No Does patient have a Durable POA for Healthcare: No - Code Status/Comfort Care Code Status: Full Code 1. IV steroids may need 2. O2 per protocol; wean off of BiPAP support and on to wall oxygen 3. Pulmonary consultation has been obtained and nephrology consultation pending 4. Monitor labs 5. Strict blood pressure control 6. Placement pending
--- NOTE | 2021-12-15 07:30 | P.PN ---
Date of Service: 12/13/21 Subjective Tolerating on wall oxygen. Review of Systems 10-point ROS is otherwise unremarkable Physical Examination - Vital Signs reviewed - Physical Exam General: Alert, In no apparent distress; on 10 L of wall oxygen; trying to wean off Respiratory: Clear to auscultation bilaterally, Normal air movement Cardiovascular: Regular rate/rhythm, Normal S1 S2 Gastrointestinal: Normal bowel sounds, No tenderness Neurological: Normal speech, Normal tone, Normal affect Assessment & Plan - Problems (Diagnosis) (1) Acute respiratory failure due to COVID-19 Current Visit: Yes Status: Acute (2) Hypertensive arteriosclerotic cardiovascular disease Current Visit: No Status: Acute - Advance Directives Does patient have a Living Will: No Does patient have a Durable POA for Healthcare: No - Code Status/Comfort Care Code Status: Full Code 1. IV steroids may need 2. O2 per protocol; continue to wean off to wall oxygen 3. Pulmonary consultation has been obtained and nephrology consultation pending 4. Monitor labs 5. Strict blood pressure control 6. Placement pending
--- NOTE | 2021-12-15 07:31 | P.PN ---
Date of Service: 12/15/21 Subjective Patient is doing better. Patient was weaned down to 6 L. Review of Systems 10-point ROS is otherwise unremarkable Physical Examination - Vital Signs reviewed - Physical Exam General: Alert, In no apparent distress; on 10 L of wall oxygen; trying to wean off Respiratory: Clear to auscultation bilaterally, Normal air movement Cardiovascular: Regular rate/rhythm, Normal S1 S2 Gastrointestinal: Normal bowel sounds, No tenderness Neurological: Normal speech, Normal tone, Normal affect Assessment & Plan - Problems (Diagnosis) (1) Acute respiratory failure due to COVID-19 Current Visit: Yes Status: Acute (2) Hypertensive arteriosclerotic cardiovascular disease Current Visit: No Status: Acute - Advance Directives Does patient have a Living Will: No Does patient have a Durable POA for Healthcare: No - Code Status/Comfort Care Code Status: Full Code 1. Continue with tapering dose steroids 2. O2 per protocol; continue to wean off to wall oxygen 3. Appreciate Pulmonary and Nephrology consultation 4. Continue to monitor labs closely 5. Strict blood pressure control 6. Awaiting for swing bed placement at [facility]
--- NOTE | 2021-12-15 07:31 | P.PN ---
Date of Service: 12/14/21 Subjective Patient continues to do better. He had she is on 8 L of oxygen. Try to wean her down. She is feeling better and awaiting swing bed placement awaiting for placement at swing bed in [facility] Review of Systems 10-point ROS is otherwise unremarkable Physical Examination - Vital Signs reviewed - Physical Exam General: Alert, In no apparent distress; on 10 L of wall oxygen; trying to wean off Respiratory: Clear to auscultation bilaterally, Normal air movement Cardiovascular: Regular rate/rhythm, Normal S1 S2 Gastrointestinal: Normal bowel sounds, No tenderness Neurological: Normal speech, Normal tone, Normal affect Assessment & Plan - Problems (Diagnosis) (1) Acute respiratory failure due to COVID-19 Current Visit: Yes Status: Acute (2) Hypertensive arteriosclerotic cardiovascular disease Current Visit: No Status: Acute - Advance Directives Does patient have a Living Will: No Does patient have a Durable POA for Healthcare: No - Code Status/Comfort Care Code Status: Full Code 1. IV steroids may need 2. O2 per protocol; continue to wean off to wall oxygen 3. Pulmonary consultation has been obtained and nephrology consultation pending 4. Monitor labs 5. Strict blood pressure control 6. Awaiting for swing bed placement at [facility]
[2021-12-15] MEDS ORDERED: ALBUTEROL INHALER 60 PUFF/8 GM IH PRN (07:32)
[2021-12-15 07:48] LABS: Albumin 2.1 g/dL (3.4-5.0); Bilirubin Total 0.3 mg/dL (0.2-1.0); Potassium 4.8 mmol/L (3.5-5.1); Protein, Total 5.1 g/dL (6.4-8.2); Uric Acid 3.8 mg/dL (2.6-6.0)
[2021-12-15] MEDS: ENOXAPARIN 40 MG/0.4 ML SQ SCH (08:14)
[2021-12-15] MEDS: NICOTINE 21 MG/PAT TD SCH (08:14)
[2021-12-15] MEDS: FAMOTIDINE 20 MG TAB PO SCH ×2 (08:15→22:06)
[2021-12-15] MEDS: VITAMIN D 5,000 UNIT CAP PO SCH (08:15)
[2021-12-15] MEDS: CLOPIDOGREL 75 MG TABLET PO SCH (08:15)
[2021-12-15] MEDS: BARICITINIB 2 MG TABLET PO SCH (08:15)
[2021-12-15] MEDS: ZINC SULFATE 220 MG CAP PO SCH (08:15)
[2021-12-15] MEDS: CITALOPRAM 10 MG TABLET PO SCH (08:15)
[2021-12-15] MEDS: THIAMINE HCL 100 MG TABLET PO SCH (08:15)
[2021-12-15] MEDS: VALSARTAN 80 MG TAB PO SCH ×2 (08:16→22:06)
[2021-12-15] MEDS: CEFUROXIME 250 MG TAB PO SCH (08:16)
[2021-12-15] MEDS: METHYLPREDNISOLONE 40 MG INJ IV SCH (08:16)
[2021-12-15] MEDS: METOPROLOL XL 50 MG TAB PO SCH (08:21)
[2021-12-15] MEDS: LACTOSE-REDUCED FOOD 330 ML LIQUID PO SCH ×3 (08:22→21:00)
[2021-12-15 09:05] LABS: Platelet Estimate ADEQ
[2021-12-15 09:06] LABS: Anisocytosis 1+; Blood Morphology Comment NOTED (NOT SEEN)
[2021-12-15 09:07] LABS: Ovalocytes 1+
[2021-12-15] MEDS: predniSONE 20 MG TAB PO SCH ×2 (09:21→22:06)
--- NOTE | 2021-12-15 11:46 | P.PN ---
Subjective Date of Service: 12/15/21 Primary Care Provider: Dr. Calvin Chief Complaint: COVID penumonia Patient is improving oxygenation on 4 to 5 L no new complaint Review of Systems General: Weakness Respiratory: Shortness of Breath Physical Examination - Vital Signs Temperature: 97.7 F Blood Pressure: 183/82 Pulse: 62 Respirations: 20 Pulse Ox (%): 90 - Physical Exam General: Alert, In no apparent distress, Oriented x3 - Studies Medications List Reviewed: Yes Assessment & Plan - Problems (Diagnosis) (1) Acute respiratory failure due to COVID-19 Current Visit: Yes Status: Acute Plan: Respiratory failure patient is improving plan to discharge home oxygen has been ordered continue with prednisone 10 twice daily for 2-week low-dose aspirin follow-up with me in 2
--- NOTE | 2021-12-15 20:23 | P.PN ---
Date of Service: 12/15/21 Vital Signs Temp Pulse Resp BP Pulse Ox 98.0 F 65 18 151/72 H 90 L 12/15/21 16:00 12/15/21 16:00 12/15/21 16:00 12/15/21 16:00 12/15/21 16:00 Medications Acetaminophen (Acetaminophen 500 Mg Tab) 500 mg PO Q6H PRN PRN Reason: Pain scale 2-4 (Mild) Last Admin: 12/14/21 20:37 Dose: 500 mg Documented by: Albuterol Sulfate (Albuterol 2.5 Mg/3 Ml Neb Tara) 2.5 mg NEB Q6HP PRN PRN Reason: SHORTNESS OF BREATH Albuterol Sulfate (Albuterol Inhaler 60 Puff/8 Gm) 2 puff IH Q6H PRN PRN Reason: SHORTNESS OF BREATH Atorvastatin Calcium (Atorvastatin 20 Mg Tab) 20 mg PO BEDTIME [facility] Last Admin: 12/14/21 20:38 Dose: 20 mg Documented by: Benzonatate (Benzonatate 100 Mg Cap) 200 mg PO TID PRN PRN Reason: COUGH Last Admin: 12/10/21 08:08 Dose: 200 mg Documented by: Cholecalciferol (Vitamin D 5,000 Unit Cap) 5,000 unit PO DAILY [facility] Last Admin: 12/15/21 08:15 Dose: 5,000 unit Documented by: Citalopram Hydrobromide (Citalopram 10 Mg Tablet) 40 mg PO DAILY [facility] Last Admin: 12/15/21 08:15 Dose: 40 mg Documented by: Clopidogrel Bisulfate (Clopidogrel 75 Mg Tablet) 75 mg PO DAILY [facility] Last Admin: 12/15/21 08:15 Dose: 75 mg Documented by: Enoxaparin Sodium (Enoxaparin 40 Mg/0.4 Ml) 40 mg SQ DAILY [facility] Last Admin: 12/15/21 08:14 Dose: 40 mg Documented by: Famotidine (Famotidine 20 Mg Tab) 20 mg PO BID [facility]; Protocol Last Admin: 12/15/21 08:15 Dose: 20 mg Documented by: Gabapentin (Gabapentin 300 Mg Cap) 300 mg PO TID PRN PRN Reason: Arm Pain Last Admin: 12/13/21 23:52 Dose: 300 mg Documented by: Hydralazine HCl (Hydralazine Hcl 20 Mg/Ml Vial) 10 mg IV Q6HP PRN PRN Reason: Titrate to SBP (MUST DEFINE) Last Admin: 12/13/21 14:46 Dose: 10 mg Documented by: Ipratropium Sunset (Ipratropium Brom 0.5mg/2.5ml) 0.5 mg NEB Q6HP PRN PRN Reason: SHORTNESS OF BREATH Last Admin: 12/10/21 08:50 Dose: 0.5 mg Documented by: Lorazepam (Lorazepam 0.5 Mg Tablet) 0.5 mg PO BID PRN PRN Reason: ANXIETY Last Admin: 12/14/21 20:37 Dose: 0.5 mg Documented by: Metoprolol Succinate (Metoprolol Xl 50 Mg Tab) 100 mg PO DAILY [facility] Last Admin: 12/15/21 08:21 Dose: 100 mg Documented by: Nicotine (Nicotine 21 Mg/Pat) 21 mg TD DAILY [facility] Last Admin: 12/15/21 08:14 Dose: 21 mg Documented by: Ondansetron HCl (Ondansetron 4 Mg/2 Ml Vial) 4 mg IV Q8H PRN PRN Reason: NAUSEA / VOMITING Last Admin: 12/15/21 09:28 Dose: 4 mg Documented by: Prednisone (Prednisone 20 Mg Tab) 20 mg PO BID [facility] Last Admin: 12/15/21 09:21 Dose: 20 mg Documented by: Sodium Chloride (Flush Normal Saline 10 Ml) 10 ml IV BID [facility] Last Admin: 12/15/21 08:22 Dose: 10 ml Documented by: Thiamine HCl (Thiamine Hcl 100 Mg Tablet) 100 mg PO DAILY [facility] Last Admin: 12/15/21 08:15 Dose: 100 mg Documented by: Valsartan (Valsartan 80 Mg Tab) 80 mg PO BID [facility] Last Admin: 12/15/21 08:16 Dose: 80 mg Documented by: Microbiology Results 12/05/21 00:34 Blood - Blood Aerobic Blood Culture - Final No growth in 5 days. 12/05/21 00:34 Blood - Blood Anaerobic Blood Culture - Final 12/05/21 00:14 Blood - Blood Aerobic Blood Culture - Final No growth in 5 days. 12/05/21 00:14 Blood - Blood Anaerobic Blood Culture - Final No growth in 5 days. 12/05/21 01:02 Clean Catch Urine Thida Count - Final >100,000 CFU/ML. 12/05/21 01:02 Clean Catch Urine - Final Escherichia Coli Assessment/ Plan: Nephrology Improving dyspnea. TOM. Still on 3L Oxygen. No chest pain Feeling better and wants to go home. No acute events overnight Vitals, medications, blood work and imaging reviewed in the chart General: Oriented x3, Cooperative, Mild distress HEENT: Atraumatic Neck: Supple Respiratory: Clear to auscultation bilaterally Cardiovascular: No edema, Regular rate/rhythm Gastrointestinal: Non-distended, Tenderness Musculoskeletal: No clubbing, No contractures Integumentary: No rashes, No cyanosis Neurological: Normal speech Laboratory Data (last 24 hrs) 12/05/21 01:02: WBC 6.70, Hgb 11.4 L, Hct 34.0 L, Plt Count 221 12/05/21 00:14: PT 17.2 H, INR 1.49, APTT 29.7 12/05/21 00:14: Sodium 136, Potassium 3.2 L, BUN 23 H, Creatinine 1.20, Glucose 139 H, Total Bilirubin 0.7, AST 21, ALT 13, Alkaline Phosphatase 97, Lipase 73 Imagings Data: EXAM DESCRIPTION: CT - Chest For Pe Angio - 12/05/2021 6:20 am CLINICAL HISTORY: 70 years, Female, DYSPNEA COMPARISON: None TECHNIQUE: Multiple transaxial tomograms of the chest were obtained from the lung apices through the lung bases utilizing 2 mm slice thickness at 2 mm interval reconstruction after the administration of large bolus of IV contrast for complete opacification of the pulmonary arteries. Subsequent 3-D maximum intensity projection images were generated in the coronal and sagittal plane for review. This exam was performed according to our departmental dose-optimization protocol, which includes automated exposure control, adjustment of the mA and/or kV according to patient size and/or use of iterative reconstruction technique. FINDINGS: The lungs parenchyma demonstrate interlobular septal thickening with a subpleural sparing minimal dependent atelectatic changes. Findings suggest most likely nonspecific interstitial pneumonitis and/or interstitial lung disease such as UIP could be of consideration. Calcified granuloma posterior segment right lower lobe. No masses, nodules and/or consolidations are identified. The trachea mainstem bronchus demonstrate to be normal. There is no significant pericardial or pleural effusions. The thoracic aorta demonstrate intimal calcification at the aortic throughout the thoracic aorta. The heart is normal in size. No evidence for right ventricular strain. There are minimal coronary artery calcifications There is no significant mediastinal and/or hilar lymphadenopathy. The axillary regions demonstrate to be clear. Pulmonary arteries demonstrate to be normal, no intraluminal defect are seen that would suggest pulmonary embolus. The bone windows demonstrate no significant skeletal lesions. The visualized portions of the upper abdomen demonstrate to be unremarkable. IMPRESSION: No evidence for pulmonary embolism. Diffuse interlobular septal thickening with a subpleural sparing minimal dependent atelectatic changes. Findings suggest most likely nonspecific interstitial pneumonitis and/or interstitial lung disease such as UIP could be of consideration. Atherosclerotic disease thoracic aorta. EXAM DESCRIPTION: Fernando Single View12/05/2021 8:33 am CLINICAL HISTORY: Chest pain COMPARISON: 2019 FINDINGS: Moderate bilateral pulmonary opacities. Heart is mildly to moderately enlarged. IMPRESSION: Moderate bilateral pulmonary opacities probably pneumonia Conclusions/Impression: CKD III with Proteinuria -No NSAIDs Hypokalemia -Replete potassium prn HTN with CKD -Hydralazine prn -Continue Metoprolol -Continue Valsartan BID DM II with CKD -Consider RISS Severe malnutrition -Continue Ensure Anemia in chronic illness -Monitor H&H Acute cystitis -Continue Ceftin COVID-19 -Continue steroids -Continue Rocephin -Wean Oxygen as tolerated
[2021-12-15] MEDS: ATORVASTATIN 20 MG TAB PO SCH (22:05)
[2021-12-15] MEDS: ACETAMINOPHEN 500 MG TAB PO PRN (22:11)
[2021-12-16] MEDS: LORAZEPAM 0.5 MG TABLET PO PRN (01:30)
[2021-12-16] MEDS: HYDRALAZINE HCL 20 MG/ML VIAL IV PRN ×2 (01:30→12:58)
[2021-12-16] MEDS: ENOXAPARIN 40 MG/0.4 ML SQ SCH (08:16)
[2021-12-16] MEDS: CITALOPRAM 10 MG TABLET PO SCH (08:16)
[2021-12-16] MEDS: NICOTINE 21 MG/PAT TD SCH (08:16)
[2021-12-16] MEDS: CLOPIDOGREL 75 MG TABLET PO SCH (08:17)
[2021-12-16] MEDS: predniSONE 20 MG TAB PO SCH ×2 (08:18→20:36)
[2021-12-16] MEDS: FAMOTIDINE 20 MG TAB PO SCH ×2 (08:18→20:35)
[2021-12-16] MEDS: THIAMINE HCL 100 MG TABLET PO SCH (08:19)
[2021-12-16] MEDS: BARICITINIB 2 MG TABLET PO SCH (08:19)
[2021-12-16] MEDS: LACTOSE-REDUCED FOOD 330 ML LIQUID PO SCH ×3 (08:20→20:35)
[2021-12-16] MEDS: VITAMIN D 5,000 UNIT CAP PO SCH (08:20)
[2021-12-16] MEDS: VALSARTAN 80 MG TAB PO SCH ×2 (09:19→20:42)
[2021-12-16] MEDS: METOPROLOL XL 50 MG TAB PO SCH (09:19)
[2021-12-16] MEDS: ATORVASTATIN 20 MG TAB PO SCH (20:36)
[2021-12-16] MEDS: ACETAMINOPHEN 500 MG TAB PO PRN (20:43)
[2021-12-16] MEDS ORDERED: CLONAZEPAM 2 MG PO PRN (20:51)
[2021-12-16] MEDS: clonazePAM 0.5 MG TAB PO PRN (20:57)
[2021-12-17] MEDS: HYDRALAZINE HCL 20 MG/ML VIAL IV PRN (04:58)
[2021-12-17] MEDS: VALSARTAN 80 MG TAB PO SCH ×2 (08:12→21:31)
[2021-12-17] MEDS: CITALOPRAM 10 MG TABLET PO SCH (08:12)
[2021-12-17] MEDS: predniSONE 20 MG TAB PO SCH ×2 (08:12→21:33)
[2021-12-17] MEDS: NICOTINE 21 MG/PAT TD SCH (08:14)
[2021-12-17] MEDS: LACTOSE-REDUCED FOOD 330 ML LIQUID PO SCH ×3 (08:14→21:00)
[2021-12-17] MEDS: ENOXAPARIN 40 MG/0.4 ML SQ SCH (08:14)
[2021-12-17] MEDS: FAMOTIDINE 20 MG TAB PO SCH ×2 (08:15→21:33)
[2021-12-17] MEDS: BARICITINIB 2 MG TABLET PO SCH (08:15)
[2021-12-17] MEDS: CLOPIDOGREL 75 MG TABLET PO SCH (08:15)
[2021-12-17] MEDS: VITAMIN D 5,000 UNIT CAP PO SCH (08:16)
[2021-12-17] MEDS: THIAMINE HCL 100 MG TABLET PO SCH (08:16)
[2021-12-17] MEDS: METOPROLOL XL 50 MG TAB PO SCH (08:16)
[2021-12-17 13:09] LABS: Absolute Lymphocytes (CBC) 0.6 K/uL (0.7-4.9); Hematocrit 33.8 % (36.0-45.0); Lymphocytes % 3.8 % (15.3-44.8); MPV 8.3 fL (7.6-11.3); RBC Red Blood Cell Count 3.97 M/uL (3.86-4.86)
[2021-12-17 13:19] LABS: Potassium 4.9 mmol/L (3.5-5.1)
[2021-12-17] MEDS: ATORVASTATIN 20 MG TAB PO SCH (21:32)
[2021-12-17] MEDS: ACETAMINOPHEN 500 MG TAB PO PRN (21:33)
[2021-12-17] MEDS: BENZONATATE 100 MG CAP PO PRN (21:34)
[2021-12-17] MEDS: clonazePAM 0.5 MG TAB PO PRN (22:24)
--- NOTE | 2021-12-17 23:20 | P.PN ---
Date of Service: 12/16/21 Subjective Patient feeling well. Oxygen weaned down to 5 L. Patient continues to do well. Review of Systems 10-point ROS is otherwise unremarkable Physical Examination - Vital Signs reviewed - Physical Exam General: Alert, In no apparent distress; on 10 L of wall oxygen; trying to wean off Respiratory: Clear to auscultation bilaterally, Normal air movement Cardiovascular: Regular rate/rhythm, Normal S1 S2 Gastrointestinal: Normal bowel sounds, No tenderness Neurological: Normal speech, Normal tone, Normal affect Assessment & Plan - Problems (Diagnosis) (1) Acute respiratory failure due to COVID-19 Current Visit: Yes Status: Acute (2) Hypertensive arteriosclerotic cardiovascular disease Current Visit: No Status: Acute - Advance Directives Does patient have a Living Will: No Does patient have a Durable POA for Healthcare: No - Code Status/Comfort Care Code Status: Full Code 1. Continue with tapering dose steroids 2. O2 per protocol; continue to wean off to wall oxygen 3. Out of bed and ambulate 4. Continue to monitor labs closely 5. Strict blood pressure control 6. Awaiting for swing bed placement at [facility]
--- NOTE | 2021-12-17 23:22 | P.PN ---
Date of Service: 12/17/21 Subjective Patient is oxygen saturations have been weaned down to 3 L. Patient continues to do well. Review of Systems 10-point ROS is otherwise unremarkable Physical Examination - Vital Signs reviewed - Physical Exam General: Alert, In no apparent distress; on 3 L of wall oxygen; trying to wean off Respiratory: Clear to auscultation bilaterally, Normal air movement Cardiovascular: Regular rate/rhythm, Normal S1 S2 Gastrointestinal: Normal bowel sounds, No tenderness Neurological: No focal deficits Assessment & Plan - Problems (Diagnosis) (1) Acute respiratory failure due to COVID-19 Current Visit: Yes Status: Acute (2) Hypertensive arteriosclerotic cardiovascular disease Current Visit: No Status: Acute - Advance Directives Does patient have a Living Will: No Does patient have a Durable POA for Healthcare: No - Code Status/Comfort Care Code Status: Full Code 1. Continue with tapering dose steroids 2. O2 per protocol; continue to wean off to wall oxygen 3. Out of bed and ambulate; continue with physical therapy 4. Continue to monitor labs as needed; slight leukocytosis 5. Monitor hemodynamics closely 6. Awaiting for swing bed placement at [facility]
[2021-12-18] MEDS ORDERED: FUROSEMIDE 20 MG/ 2ML VIAL IV ONE (06:00)
[2021-12-18 06:22] LABS: Absolute Lymphocytes (CBC) 0.5 K/uL (0.7-4.9); Hematocrit 33.3 % (36.0-45.0); Lymphocytes % 3.3 % (15.3-44.8); MPV 8.5 fL (7.6-11.3); RBC Red Blood Cell Count 3.82 M/uL (3.86-4.86)
[2021-12-18] MEDS ORDERED: predniSONE 10 MG TAB ONE (06:55)
--- NOTE | 2021-12-18 07:32 | RAD REPORT ---
EXAM DESCRIPTION: RAD - Chest Single View - 12/18/2021 6:32 am CLINICAL HISTORY: pneumonia COMPARISON: Chest Single View dated 12/10/2021; Chest Single View dated 12/08/2021; Chest Single View da jas 12/07/2021; Chest Single View dated 12/06/2021; Chest For Pe Angio dated 12/05/2021 FINDINGS: Lines: None. Lungs: Multifocal airspace disease with worsening nodularity in the right lung compared with 12/10/19. Pleural: No significant pleural effusions or pneumothorax. Cardiac: Cardiomegaly. Bones: No acute fractures. Other: IMPRESSION: Mild worsening airspace disease in the right lung concerning for bilateral multifocal pn eumonia.
[2021-12-18 07:36] LABS: Potassium 4.9 mmol/L (3.5-5.1)
[2021-12-18] MEDS: FAMOTIDINE 20 MG TAB PO SCH (07:58)
[2021-12-18] MEDS: METOPROLOL XL 50 MG TAB PO SCH (07:58)
[2021-12-18] MEDS: CITALOPRAM 10 MG TABLET PO SCH (07:58)
[2021-12-18] MEDS: THIAMINE HCL 100 MG TABLET PO SCH (08:00)
[2021-12-18] MEDS: VITAMIN D 5,000 UNIT CAP PO SCH (08:00)
[2021-12-18] MEDS: VALSARTAN 80 MG TAB PO SCH (08:00)
[2021-12-18] MEDS: ENOXAPARIN 40 MG/0.4 ML SQ SCH (08:00)
[2021-12-18] MEDS: CLOPIDOGREL 75 MG TABLET PO SCH (08:00)
[2021-12-18] MEDS: NICOTINE 21 MG/PAT TD SCH (08:01)
[2021-12-18] MEDS: BARICITINIB 2 MG TABLET PO SCH (08:01)
[2021-12-18] MEDS: LACTOSE-REDUCED FOOD 330 ML LIQUID PO SCH ×2 (08:01→14:00)
[2021-12-18] MEDS: predniSONE 20 MG TAB PO SCH (08:03)
[2021-12-18 12:06] VITALS: O2SAT 91
--- NOTE | 2021-12-18 12:29 | P.DS ---
Admission Date: 12/05/21 Discharge Date: 12/18/21 Primary Care Provider: Dr. Calvin Disposition: ROUTINE DISCHARGE Discharge Condition: GOOD Reason for Admission: COVID penumonia Consultations: Nephrology-Dr. Calvin Pulmonary-Dr. Prince Procedures: COVID: Positive Hx of Moderna vaccine in the past times 2 Initial CXR: COMPARISON: 2019 FINDINGS: Moderate bilateral pulmonary opacities. Heart is mildly to moderately enlarged. IMPRESSION: Moderate bilateral pulmonary opacities probably pneumonia CT chest: COMPARISON: None TECHNIQUE: Multiple transaxial tomograms of the chest were obtained from the lung apices through the lung bases utilizing 2 mm slice thickness at 2 mm interval reconstruction after the administration of large bolus of IV contrast for complete opacification of the pulmonary arteries. Subsequent 3-D maximum intensity projection images were generated in the coronal and sagittal plane for review. This exam was performed according to our departmental dose-optimization protocol, which includes automated exposure control, adjustment of the mA and/or kV according to patient size and/or use of iterative reconstruction technique. FINDINGS: The lungs parenchyma demonstrate interlobular septal thickening with a subpleural sparing minimal dependent atelectatic changes. Findings suggest most likely nonspecific interstitial pneumonitis and/or interstitial lung disease such as UIP could be of consideration. Calcified granuloma posterior segment right lower lobe. No masses, nodules and/or consolidations are identified. The trachea mainstem bronchus demonstrate to be normal. There is no significant pericardial or pleural effusions. The thoracic aorta demonstrate intimal calcification at the aortic throughout the thoracic aorta. The heart is normal in size. No evidence for right ventricular strain. There are minimal coronary artery calcifications There is no significant mediastinal and/or hilar lymphadenopathy. The axillary regions demonstrate to be clear. Pulmonary arteries demonstrate to be normal, no intraluminal defect are seen that would suggest pulmonary embolus. The bone windows demonstrate no significant skeletal lesions. The visualized portions of the upper abdomen demonstrate to be unremarkable. IMPRESSION: No evidence for pulmonary embolism. Diffuse interlobular septal thickening with a subpleural sparing minimal dependent atelectatic changes. Findings suggest most likely nonspecific interstitial pneumonitis and/or interstitial lung disease such as UIP could be of consideration. Atherosclerotic disease thoracic aorta. Medical Problem List: Acute respiratory failure secondary to COVID pneumonia complicated with COPD Tobacco abuse HTN UTI, urine culture positive for E. coli Chronic renal disease stage III CAD Hyperlipidemia Depression Chronic pain with neuropathy Brief History of Present Illness: 70-year-old female presented to the emergency room with increasing shortness of breath. Patient found to have COVID-pneumonia. Patient was vaccinated. Patient admitted for treatment. Hospital Course: Patient presented with acute respiratory failure secondary to COVID-pneumonia complicated with COPD. Patient was vaccinated. During the course of her stay patient received IV steroids with baricitinib. Her stay was prolonged. Her condition slowly improved. There was some consideration of sending her to a skilled facility but the patient has done well. Patient desires to go home at discharge. At discharge patient without significant shortness of breath. Patient stable on 3 L per nasal cannula. At discharge she will continue with oxygen to maintain sats above 93%. Patient will continue with prednisone 20 mg 1 pill twice daily for 7 days then 1 pill once daily for 7 days. The patient will also be provided Tessalon Perles 100 mg 1 pill 3 times a day as needed for cough. Recommend to recheck chest x-ray in 2 to 4 weeks to monitor her progress. Patient will continue with COVID-19 recommendations including handwashing, facemask use and social distancing. Recommend follow-up with pulmonology in 1 to 2 weeks to follow-up his hospitalization. Recommend follow- up with her PCP to further monitor and address. As mentioned above patient with underlying COPD. At discharge she will continue with COPD medication Symbicort 2 puffs twice daily and albuterol 2 puffs 3 times a day as needed for shortness of breath. Recommend follow-up with pulmonology to further monitor and address. Patient with tobacco abuse. Tobacco cessation addressed in detail. At discharge patient will continue with nicotine patch. Patient with hypertension. Medications have been adjusted for better control. At discharge patient will continue with metoprolol XL 100 mg daily and valsartan 80 mg 1 pill twice daily. Recommend to maintain blood pressure less than 130/80. Further treatment can be done by PCP. Patient also found to have a UTI. This was treated. UTI prevention provided. No need for treatment at discharge. Patient with underlying CAD. At discharge we will continue with Plavix 75 mg daily. Patient with depression and anxiety. At discharge we will continue with Celexa 40 mg daily and clonazepam as needed for anxiety. Patient with hyperlipidemia. At discharge we will continue with lovastatin 40 mg daily. Patient with chronic pain and neuropathy. At discharge patient will continue with Neurontin 300 mg 3 times a day. Vital Signs/Physical Exam: Temp Pulse Resp BP Pulse Ox 96.8 F 62 18 157/83 H 91 12/18/21 08:00 12/18/21 08:00 12/18/21 08:00 12/18/21 08:00 12/18/21 08:00 General: Alert, In no apparent distress, Oriented x3, Cooperative HEENT: Atraumatic Neck: Supple Respiratory: Clear to auscultation bilaterally, Other (Patient currently stable on 3 L per nasal cannula.) Cardiovascular: Normal pulses, Regular rate/rhythm Gastrointestinal: Normal bowel sounds, No ascites, No tenderness, No masses, No rebound, No guarding Musculoskeletal: No erythema, No tenderness, No warmth Integumentary: No tenderness/swelling Neurological: Normal speech, Normal strength at 5/5 x4 extr, Normal tone, Normal affect Laboratory Data at Discharge: WBC 16.40 K/uL (4.3-10.9) H 12/18/21 05:44 Hgb 10.7 g/dL (12.0-15.0) L 12/18/21 05:44 Hct 33.3 % (36.0-45.0) L 12/18/21 05:44 Plt Count 340 K/uL (152-406) 12/18/21 05:44 PT 17.2 SECONDS (9.5-12.5) H 12/05/21 00:14 INR 1.49 12/05/21 00:14 APTT 29.7 SECONDS (24.3-36.9) 12/05/21 00:14 Sodium 135 mmol/L (136-145) L 12/18/21 05:44 Potassium 4.9 mmol/L (3.5-5.1) 12/18/21 05:44 BUN 31 mg/dL (7-18) H 12/18/21 05:44 Creatinine 0.85 mg/dL (0.55-1.3) 12/18/21 05:44 Glucose 178 mg/dL (74-106) H 12/18/21 05:44 Uric Acid 3.8 mg/dL (2.6-6.0) 12/15/21 05:38 Phosphorus 3.2 mg/dL (2.5-4.9) 12/07/21 05:46 Magnesium 3.0 mg/dL (1.8-2.4) H 12/18/21 05:44 Total Bilirubin 0.3 mg/dL (0.2-1.0) 12/15/21 05:38 AST 14 U/L (15-37) L 12/15/21 05:38 ALT 29 U/L (12-78) 12/15/21 05:38 Alkaline Phosphatase 63 U/L (45-117) 12/15/21 05:38 Lipase 73 U/L (73-393) 12/05/21 00:14 Home Medications: Clopidogrel Bisulfate [Plavix*] 75 mg PO DAILY #30 tablet 01/16/16 Nitroglycerin [Nitrostat*] 1 tab PO PRN PRN #100 tab 01/16/16 clonazePAM [Clonazepam] 2 mg PO DAILY PRN #60 tablet 01/16/16 Citalopram [Celexa*] 40 mg PO DAILY #30 tablet 07/31/19 Gabapentin [Neurontin*] 300 mg PO TID PRN 07/31/19 Lovastatin 40 mg PO DAILY 30 Days #30 tablet 07/31/19 Albuterol Inhaler [Ventolin Inhaler*] 2 puff IH TID PRN #1 hfa.aer.ad 12/18/21 Benzonatate [Tessalon Perle*] 100 mg PO TID PRN #10 cap 12/18/21 Budesonide/Formoterol Fumarate [Symbicort 160-4.5 Mcg Inhaler] 2 puff IH BID #1 hfa.aer.ad 12/18/21 Metoprolol Succinate [Toprol Xl*] 100 mg PO DAILY #60 tab 12/18/21 Nicotine [Nicoderm*] 21 mg TD DAILY #30 patch.td24 12/18/21 Telmisartan 80 mg PO BID 6AM 6PM #60 12/18/21 predniSONE [Prednisone*] 20 mg PO SEECOM #21 tab 12/18/21 New Medications: Nicotine [Nicoderm*] 21 mg TD DAILY #30 patch.td24 predniSONE [Prednisone*] 20 mg PO SEECOM #21 tab Budesonide/Formoterol Fumarate [Symbicort 160-4.5 Mcg Inhaler] 2 puff IH BID #1 hfa.aer.ad Telmisartan 80 mg PO BID 6AM 6PM #60 Benzonatate [Tessalon Perle*] 100 mg PO TID PRN #10 cap PRN Reason: Cough Metoprolol Succinate [Toprol Xl*] 100 mg PO DAILY #60 tab Albuterol Inhaler [Ventolin Inhaler*] 2 puff IH TID PRN #1 hfa.aer.ad PRN Reason: Shortness Of Breath Physician Discharge Instructions: Patient presented with acute respiratory failure secondary to COVID-pneumonia complicated with COPD. Patient was vaccinated. During the course of her stay patient received IV steroids with baricitinib. Her stay was prolonged. Her condition slowly improved. There was some consideration of sending her to a skilled facility but the patient has done well. Patient desires to go home at discharge. At discharge patient without significant shortness of breath. Patient stable on 3 L per nasal cannula. At discharge she will continue with oxygen to maintain sats above 93%. Patient will continue with prednisone 20 mg 1 pill twice daily for 7 days then 1 pill once daily for 7 days. The patient will also be provided Tessalon Perles 100 mg 1 pill 3 times a day as needed for cough. Recommend to recheck chest x-ray in 2 to 4 weeks to monitor her progress. Patient will continue with COVID-19 recommendations including handwashing, facemask use and social distancing. Recommend follow-up with pulmonology in 1 to 2 weeks to follow-up his hospitalization. Recommend follow- up with her PCP to further monitor and address. As mentioned above patient with underlying COPD. At discharge she will continue with COPD medication Symbicort 2 puffs twice daily and albuterol 2 puffs 3 times a day as needed for shortness of breath. Recommend follow-up with pulmonology to further monitor and address. Patient with tobacco abuse. Tobacco cessation addressed in detail. At discharge patient will continue with nicotine patch. Patient with hypertension. Medications have been adjusted for better control. At discharge patient will continue with metoprolol XL 100 mg daily and valsartan 80 mg 1 pill twice daily. Recommend to maintain blood pressure less than 130/80. Further treatment can be done by PCP. Patient also found to have a UTI. This was treated. UTI prevention provided. No need for treatment at discharge. Patient with underlying CAD. At discharge we will continue with Plavix 75 mg daily. Patient with depression and anxiety. At discharge we will continue with Celexa 40 mg daily and clonazepam as needed for anxiety. Patient with hyperlipidemia. At discharge we will continue with lovastatin 40 mg daily. Patient with chronic pain and neuropathy. At discharge patient will continue with Neurontin 300 mg 3 times a day. Diet: AHA Activity: Ad yennifer Followup: Unknown,U [Primary Care Provider] - Time spent managing pt's care (in minutes): 55
[2021-12-18 17:46] VITALS: BP 138/64; TEMP 97.3
--- NOTE | 2021-12-18 18:12 | P.PN ---
Date of Service: 12/18/21 Vital Signs Temp Pulse Resp BP Pulse Ox 97.3 F 59 18 138/64 93 12/18/21 16:00 12/18/21 16:00 12/18/21 16:00 12/18/21 16:00 12/18/21 16:00 Microbiology Results 12/05/21 00:34 Blood - Blood Aerobic Blood Culture - Final No growth in 5 days. 12/05/21 00:34 Blood - Blood Anaerobic Blood Culture - Final 12/05/21 00:14 Blood - Blood Aerobic Blood Culture - Final No growth in 5 days. 12/05/21 00:14 Blood - Blood Anaerobic Blood Culture - Final No growth in 5 days. 12/05/21 01:02 Clean Catch Urine Walker Count - Final >100,000 CFU/ML. 12/05/21 01:02 Clean Catch Urine - Final Escherichia Coli Assessment/ Plan: Nephrology Feeling better. No chest pain Good appetite No acute events overnight Vitals, medications, blood work and imaging reviewed in the chart General: Oriented x3, Cooperative, Mild distress HEENT: Atraumatic Neck: Supple Respiratory: Clear to auscultation bilaterally Cardiovascular: No edema, Regular rate/rhythm Gastrointestinal: Non-distended, Tenderness Musculoskeletal: No clubbing, No contractures Integumentary: No rashes, No cyanosis Neurological: Normal speech Laboratory Data (last 24 hrs) 12/05/21 01:02: WBC 6.70, Hgb 11.4 L, Hct 34.0 L, Plt Count 221 12/05/21 00:14: PT 17.2 H, INR 1.49, APTT 29.7 12/05/21 00:14: Sodium 136, Potassium 3.2 L, BUN 23 H, Creatinine 1.20, Glucose 139 H, Total Bilirubin 0.7, AST 21, ALT 13, Alkaline Phosphatase 97, Lipase 73 Imagings Data: EXAM DESCRIPTION: CT - Chest For Pe Angio - 12/05/2021 6:20 am CLINICAL HISTORY: 70 years, Female, DYSPNEA COMPARISON: None TECHNIQUE: Multiple transaxial tomograms of the chest were obtained from the lung apices through the lung bases utilizing 2 mm slice thickness at 2 mm interval reconstruction after the administration of large bolus of IV contrast for complete opacification of the pulmonary arteries. Subsequent 3-D maximum intensity projection images were generated in the coronal and sagittal plane for review. This exam was performed according to our departmental dose-optimization protocol, which includes automated exposure control, adjustment of the mA and/or kV according to patient size and/or use of iterative reconstruction technique. FINDINGS: The lungs parenchyma demonstrate interlobular septal thickening with a subpleural sparing minimal dependent atelectatic changes. Findings suggest most likely nonspecific interstitial pneumonitis and/or interstitial lung disease such as UIP could be of consideration. Calcified granuloma posterior segment right lower lobe. No masses, nodules and/or consolidations are ident ified. The trachea mainstem bronchus demonstrate to be normal. There is no significant pericardial or pleural effusions. The thoracic aorta demonstrate intimal calcification at the aortic throughout t he thoracic aorta. The heart is normal in size. No evidence for right ventricular strain. There are minimal coronary artery calcifications There is no significant mediastinal and/or hilar lymphadenopathy. The axillary regions demonstrate to be clear. Pulmonary arteries demonstrate to be normal, no intraluminal defect are seen that would suggest pulmonary embolus. The bone windows demonstrate no significant skeletal lesions. The visualized portions of the upper abdomen demonstrate to be unremarkable. IMPRESSION: No evidence for pulmonary embolism. Diffuse interlobular septal thickening with a subpleural sparing minimal dependent atelectatic changes. Findings suggest most likely nonspecific interstitial pneumonitis and/or interstitial lung disease such as UIP could be of consideration. Atherosclerotic disease thoracic aorta. EXAM DESCRIPTION: Fernando Single View12/05/2021 8:33 am CLINICAL HISTORY: Chest pain COMPARISON: 2019 FINDINGS: Moderate bilateral pulmonary opacities. Heart is mildly to moderately enlarged. IMPRESSION: Moderate bilateral pulmonary opacities probably pneumonia Conclusions/Impression: CKD III with Proteinuria -No NSAIDs Hypokalemia -Replete potassium prn HTN with CKD -Hydralazine prn -Continue Metoprolol -Continue Valsartan BID DM II with CKD -Consider RISS Severe malnutrition -Continue Ensure Anemia in chronic illness -Monitor H&H Acute cystitis -Continue Ceftin COVID-19 -Wean steroids as tolerated -Continue Rocephin -Wean Oxygen as tolerated
== END 2021-12-18 17:55 | disposition home or self-care (01) | DRG 177 ==
LOC: SUATTDRO 22:38 → ER 22:38 → ERHOLD 12-05 05:18 → 4TH 12-05 13:01
PROVIDERS: ADMIT Internal Medicine; ATTEND Internal Medicine
PROC: 5A09357 Assistance with Respiratory Ventilation, Less than 24 Consecutive Hours, Continuous Positive Airway Pressure (ICD-10-PCS; principal; 2021-12-05)
PROC: 5A0945A Assistance with Respiratory Ventilation, 24-96 Consecutive Hours, High Flow/Velocity Cannula (ICD-10-PCS; 2021-12-08)
DX: U07.1 COVID-19 (principal); J12.82 Pneumonia due to coronavirus disease 2019; J96.01 Acute respiratory failure with hypoxia; J18.9 Pneumonia, unspecified organism; E43 Unspecified severe protein-calorie malnutrition; J44.0 Chronic obstructive pulmonary disease with (acute) lower respiratory infection; N30.00 Acute cystitis without hematuria; E87.6 Hypokalemia; I12.9 Hypertensive chronic kidney disease with stage 1 through stage 4 chronic kidney disease, or unspecified chronic kidney disease; E11.22 Type 2 diabetes mellitus with diabetic chronic kidney disease; N18.30 Chronic kidney disease, stage 3 unspecified; Z68.25 Body mass index [BMI] 25.0-25.9, adult; B96.20 Unspecified Escherichia coli [E. coli] as the cause of diseases classified elsewhere; G62.9 Polyneuropathy, unspecified; I25.10 Atherosclerotic heart disease of native coronary artery without angina pectoris; F32.A Depression, unspecified; E78.5 Hyperlipidemia, unspecified; F41.9 Anxiety disorder, unspecified; G89.29 Other chronic pain; F17.210 Nicotine dependence, cigarettes, uncomplicated
CPT/HCPCS: 0240U; 36415; 71045; 71275; 80048; 80053; 80076; 81003; 81015; 82728; 82805; 82947; 83605; 83690; 83735; 84100; 84145; 84484; 84550; 85025; 85379; 85610; 85730; 86140; 87040; 87077; 87086; 87088; 87186; 93005; 94003; 94660; 94760; 96361; 96365; 96366; 96367; 96372; 96375; 97116; 97161; 97530; 97535; 99285; J0360; J0456; J1650; J1940; J2405; J2920; J2930; J3480; J7030; J7050; J7512; J7605; Q9967